=== PATIENT | female | born 1955 | race Caucasian/White ===

== ENCOUNTER → 2017-01-12 | Outpatient (CLI) | payer OTHER ==
[~2017-01-12] MED LIST: ALBU0.8322 IH; AZIT-21 PO; BSP5T PO; BUDE6HFA IH; CHOL200035 PO; FAMO20TA5 PO; FLUT16SP22 NS; LEVO750T24 PO; LORA-777 PO; LVT.025T PO; PRD10T PO; PRD20T PO
== END ==
LOC: CARD 08:32
PROVIDERS: ATTEND Family Medicine
DX: R79.89 Other specified abnormal findings of blood chemistry (principal)
CPT/HCPCS: 93306

== ENCOUNTER 2017-12-14 05:36 | Outpatient (CLI) | payer SELFPAY ==
[~2017-12-14] VITALS: Ht 172.7 cm; Wt 135.2 kg
[2017-12-14] MEDS ORDERED: PROP40TA5 PO (10:34)
[2017-12-14] MEDS ORDERED: BUDE10.2 IH (10:34)
[2017-12-14] MEDS ORDERED: FERR325T5 PO (10:34)
[2017-12-14] MEDS ORDERED: CHOL10007 PO (10:34)
[2017-12-14] MEDS ORDERED: ALBU1.25 IH (10:34)
[2017-12-14] MEDS ORDERED: SERT100T8 PO (10:34)
[2017-12-14] MEDS ORDERED: LEVO175T5 PO (10:34)
[2017-12-14] MEDS ORDERED: RT-ALBUINH IH (10:34)
[2017-12-14] MEDS ORDERED: FLUT9.9S NS (10:34)
== END 2017-12-14 10:42 ==
LOC: PREOP 05:36
PROVIDERS: ATTEND Surgery
DX: Z01.818 Encounter for other preprocedural examination (principal); R13.10 Dysphagia, unspecified

== ENCOUNTER 2018-03-18 21:09 | Day surgery (SDC) | payer OTHER ==
[~2018-03-18] VITALS: Ht 172.7 cm; Wt 136.6 kg
[~2018-03-18 21:09] MED LIST changes: +ALBU1.25 IH; +BUDE10.2 IH; +CHOL10007 PO; +FERR325T5 PO; +FLUT9.9S NS; +LEVO175T5 PO; +PROP40TA5 PO; +RT-ALBUINH IH; +SERT100T8 PO
[2018-03-18] MEDS ORDERED: NS IV 1000 ML 1,000 ML IV SCH (21:30)
[2018-03-18] MEDS ORDERED: ONDANSETRON 4 MG/2 ML (SDV) Z0FRAN IVP ONE ×2 (21:30→22:45)
[2018-03-18 21:32] LABS: BASOPHILS % (AUTO) 0 % (0-10); EOSINOPHILS # (AUTO) 0.2 10^3/uL (0.0-0.3); EOSINOPHILS % (AUTO) 3 % (0-10); HEMATOCRIT 39 % (35-52); HEMOGLOBIN 12.9 G/DL (11.5-16.0); LYMPHOCYTES # (AUTO) 1.2 X 10^3 (1.0-4.0); LYMPHOCYTES % (AUTO) 15 % (12-44); MEAN CORPUSCULAR HEMOGLOBIN 30 PG (25-34); MEAN CORPUSCULAR HGB CONC 33 G/DL (32-36); MEAN CORPUSCULAR VOLUME 91 FL (80-99); MEAN PLATELET VOLUME 11.4 FL (7.4-10.4); MONOCYTES # (AUTO) 0.7 X 10^3 (0.0-1.0); MONOCYTES % (AUTO) 8 % (0-12); NEUTROPHILS # (AUTO) 6.1 X 10^3 (1.8-7.8); NEUTROPHILS % (AUTO) 74 % (42-75); PLATELET COUNT 222 10^3/uL (130-400); RED BLOOD COUNT 4.27 10^6/uL (4.35-5.85); RED CELL DISTRIBUTION WIDTH 14.1 % (10.0-14.5); WHITE BLOOD COUNT 8.2 10^3/uL (4.3-11.0)
--- NOTE | 2018-03-18 21:34 | ED Abdominal Pain ---
General Chief Complaint: Abdominal/GI Problems Stated Complaint: N/V/D Nursing Triage Note: c/o RLQ abdomen pain, n/v/d x 2 hours Sepsis Screen: No Definite Risk Source of Information: Patient Exam Limitations: No Limitations History of Present Illness Date Seen by Provider: Mar 18, 2018 Time Seen by Provider: 21:00 Initial Comments Patient is a 62-year-old female who presents to the emergency room with cramping right lower abdominal pain, nausea, vomiting, diarrhea 2 hours prior to arrival after eating leftover French food. Denies chest pain, back pain, urinary symptoms, shortness of breath. Timing/Duration: 1-3 Hours Severity/Quality: Cramping Location: Generalized Abdomen Radiation: RLQ Associated Symptoms: Nausea/Vomiting Allergies and Home Medications Allergies Coded Allergies: Penicillins (Verified Allergy, Mild, HIVES, 12/14/17) hydrochlorothiazide (Verified Allergy, Mild, CRAMPS, 12/14/17) Home Medications Albuterol Sulfate 1.25 Mg/3 Ml Vial.neb, 1.25 MG IH QID PRN for SHORTNESS OF BREATH, (Reported) Albuterol Sulfate 6.7 Gm Hfa.aer.ad, 2 PUFF IH Q6H PRN for SHORTNESS OF BREATH, (Reported) Budesonide/Formoterol Fumarate 10.2 Gm Hfa.aer.ad, 2 PUFF IH BID, (Reported) Cholecalciferol (Vitamin D3) 1,000 Unit Capsule, 1,000 UNIT PO DAILY, (Reported) Docusate Sodium 100 Mg Capsule, 100 MG PO DAILY Prescribed by: LAINE DENT on 03/19/18 144 Ferrous Sulfate 325 Mg Tablet.dr, 325 MG PO DAILY, (Reported) Fluticasone Propionate 9.9 Ml [place].susp, 1 SPRAY NS DAILY, (Reported) 1 SPRAY EACH NARE DAILY Hydrocodone Bit/Acetaminophen 1 Tab Tab, 1 TAB PO Q4H PRN Prescribed by: LAINE DENT on 03/19/18 144 Levothyroxine Sodium 175 Mcg Tablet, 175 MCG PO DAILY, (Reported) Ondansetron 4 Mg Tab.rapdis, 4 MG SL Q4H PRN for NAUSEA/VOMITING-1ST LINE Prescribed by: IFRAH GAUTAM on 03/20/181910 Propranolol HCl 40 Mg Tablet, 40 MG PO TID, (Reported) Sertraline HCl 100 Mg Tablet, 50 MG PO DAILY, (Reported) Patient Home Medication List Home Medication List Reviewed: Yes Review of Systems Constitutional: see HPI; No chills, No diaphoresis Cardiovascular: Denies Palpitations, Denies Syncope Gastrointestinal: See HPI, Abdominal Pain, Diarrhea, Nausea, Vomiting Genitourinary: See HPI; Denies Burning, Denies Frequency, Denies Flank Pain, Denies Hematuria, Denies Pain, Denies Urgency All Other Systems Reviewed Negative Unless Noted: Yes Past Uuxhutq-Aeyayi-Tjykhs Hx Past Med/Social Hx: Reviewed Nursing Past Med/Soc Hx Patient Social History Alcohol Use: Denies Use Recreational Drug Use: No Smoking Status: Never a Smoker Recent Foreign Travel: No Contact w/Someone Who Travel: No Recent Infectious Disease Expo: No Recent Hopitalizations: No Physical Abuse: No Sexual Abuse: No Immunizations Up To Date Date of Pneumonia Vaccine: May 03, 2012 Date of Influenza Vaccine: Jun 14, 2017 Seasonal Allergies Seasonal Allergies: Yes Past Medical History Surgeries: Yes (ESOPHAGEAL STRICTURE STRETCHED) Tonsillectomy Respiratory: Yes (SOB) Asthma Cardiac: Yes (MITRAL VALVE REGURGITATION) Hypertension, Valvular Heart Disease Neurological: No Reproductive Disorders: Yes Sexually Transmitted Disease: No HIV/AIDS: No Gastrointestinal: Yes (ESOPHAGEAL STRICTURE) Gastroesophageal Reflux Musculoskeletal: Yes Arthritis Endocrine: No (HOSHIMOTOS) Loss of Vision: Bilateral Hearing Impairment: Hard of Hearing Cancer: No Psychosocial: Yes Anxiety Nursing Suicide Risk Score: 0 Integumentary: No Blood Disorders: Yes (IRON DEF ANEMIA) Adverse Reaction/Blood Tranf: No (N/A) Family Medical History Reviewed Nursing Family Hx Physical Exam Vital Signs Vital Signs - First Documented 03/18/18 21:22 Temp 97.4 Pulse 61 Resp 18 B/P (MAP) 171/81 (111) Pulse Ox 97 Capillary Refill : Less Than 3 Seconds Height/Weight/BMI Height: 5'8.00" Weight: 298lbs. 0.0oz. [id number]; 45.3 BMI Method:Stated General Appearance: WD/WN, no apparent distress Respiratory: chest non-tender, lungs clear, normal breath sounds, no respiratory distress, no accessory muscle use Cardiovascular: regular rate, rhythm, no edema, no gallop, no JVD, no murmur Gastrointestinal: normal bowel sounds, non tender, soft, no organomegaly, no pulsatile mass Neurologic/Psychiatric: alert, normal mood/affect, oriented x 3 Skin: normal color, warm/dry Progress/Results/Core Measures Results/Orders Lab Results Laboratory Tests Test 03/18/18 21:15 03/18/18 22:52 Range/Units White Blood Count 8.2 4.3-11.0 10^3/uL Red Blood Count 4.27 L 4.35-5.85 10^6/uL Hemoglobin 12.9 11.5-16.0 G/DL Hematocrit 39 35-52 % Mean Corpuscular Volume 91 80-99 FL Mean Corpuscular Hemoglobin 30 25-34 PG Mean Corpuscular Hemoglobin Concent 33 32-36 G/DL Red Cell Distribution Width 14.1 10.0-14.5 % Platelet Count 222 130-400 10^3/uL Mean Platelet Volume 11.4 H 7.4-10.4 FL Neutrophils (%) (Auto) 74 42-75 % Lymphocytes (%) (Auto) 15 12-44 % Monocytes (%) (Auto) 8 0-12 % Eosinophils (%) (Auto) 3 0-10 % Basophils (%) (Auto) 0 0-10 % Neutrophils # (Auto) 6.1 1.8-7.8 X 10^3 Lymphocytes # (Auto) 1.2 1.0-4.0 X 10^3 Monocytes # (Auto) 0.7 0.0-1.0 X 10^3 Eosinophils # (Auto) 0.2 0.0-0.3 10^3/uL Basophils # (Auto) 0.0 0.0-0.1 10^3/uL Sodium Level 140 135-145 MMOL/L Potassium Level 3.4 L 3.6-5.0 MMOL/L Chloride Level 105 98-107 MMOL/L Carbon Dioxide Level 24 21-32 MMOL/L Anion Gap 11 5-14 MMOL/L Blood Urea Nitrogen 10 7-18 MG/DL Creatinine 0.90 0.60-1.30 MG/DL Estimat Glomerular Filtration Rate > 60 BUN/Creatinine Ratio 11 Glucose Level 141 H 70-105 MG/DL Calcium Level 9.7 8.5-10.1 MG/DL Total Bilirubin 0.5 0.1-1.0 MG/DL Aspartate Amino Transf (AST/SGOT) 19 5-34 U/L Alanine Aminotransferase (ALT/SGPT) 15 0-55 U/L Alkaline Phosphatase 67 40-136 U/L Total Protein 7.5 6.4-8.2 GM/DL Albumin 4.3 3.2-4.5 GM/DL Amylase Level 77 25-125 U/L Lipase 43 8-78 U/L Urine Color YELLOW Urine Clarity CLEAR Urine pH 6 5-9 Urine Specific [place] 1.025 H 1.016-1.022 Urine Protein 2+ H NEGATIVE Urine Glucose (UA) NEGATIVE NEGATIVE Urine Ketones 2+ H NEGATIVE Urine Nitrite NEGATIVE NEGATIVE Urine Bilirubin NEGATIVE NEGATIVE Urine Urobilinogen NORMAL NORMAL MG/DL Urine Leukocyte Esterase 1+ H NEGATIVE Urine RBC (Auto) 2+ H NEGATIVE Urine RBC 2-5 H /HPF Urine WBC 2-5 /HPF Urine Squamous Epithelial Cells 5-10 /HPF Urine Crystals NONE /LPF Urine Bacteria FEW H /HPF Urine Casts NONE /LPF Urine Mucus NEGATIVE /LPF Urine Culture Indicated NO My Orders Orders - IFRAH GAUTAM Ondansetron Injection (Zofran Injectio (03/18/18 21:30) Comprehensive Metabolic Panel (03/18/18 21:16) Lipase (03/18/18 21:16) Amylase (03/18/18 21:16) Ua Culture If Indicated (03/18/18 21:16) Saline Lock/Iv-Start (03/18/18 21:16) Cbc With Automated Diff (03/18/18 21:16) Ns Iv 1000 Ml (Sodium Chloride 0.9%) (03/18/18 21:30) Promethazine Injection (Phenergan Injec (03/18/18 21:45) Hyoscyamine Sl Tablet (Levsin Sl Tablet) (03/18/18 22:45) Ondansetron Injection (Zofran Injectio (03/18/18 22:45) Ct Abdomen/Pelvis W (03/18/18 22:38) Iohexol Injection (Omnipaque 350 Mg/Ml 1 (03/18/18 23:15) Ns (Ivpb) (Sodium Chloride 0.9%) (03/18/18 23:15) Medications Given in ED Vital Signs/I&O 03/18/18 21:22 Temp 97.4 Pulse 61 Resp 18 B/P (MAP) 171/81 (111) Pulse Ox 97 Blood Pressure Mean: 111 Progress Progress Note : Time: 22:30 Progress Note Spoke to Dr. Jama at this time. I told her about my concern for the patient's discomfort and intractable nausea and vomiting but given the patient's labs and urine she thinks that the patient can be followed up at the walk-in clinic first thing tomorrow morning. 2300: The patient is feeling a little better at this time she was able to go over to CT scan without nausea or vomiting and able to lay down for the exam. 2330: CT exam showed cholelithiasis and possible cholecystitis. Dr. Dent was called at this time and agreed for plans for admission. Departure Communication (Admissions) Time/Spoke to Admitting Phy: 23:[address] Dent at this time regarding CT findings. He agrees with plans of admission ultrasound in the morning. The patient will also be started on Zosyn every 8 hours. Impression Primary Impression: Cholecystitis Disposition: ADMITTED INPATIENT Condition: Stable/Unchanged Admissions Decision to Admit Reason: Admit from ER (Trauma) Decision to Admit/Date: Mar 18, 2018 Time/Decision to Admit Time: 23:58 Departure-Patient Inst. Referrals: JUAN JOSE HELLER MD (PCP/Family) Primary Care Physician Scripts Hydrocodone Bit/Acetaminophen (Hydrocodone/Acetaminophen 5/325mg Tablet) 1 Tab Tab 1 TAB PO Q4H PRN, #30 TAB 0 Refills Prov: LAINE DENT DO 03/19/18 Docusate Sodium (Colace) 100 Mg Capsule 100 MG PO DAILY, #30 CAP Prov: LAINE DENT DO 03/19/18 IFRAH GAUTAM Mar 18, 2018 21:33
[2018-03-18] MEDS ORDERED: PROMETHAZINE INJ 25 MG/ML (PHENERGAN) AMP IVP ONE (21:45)
[2018-03-18 21:51] LABS: ALANINE AMINOTRANSFERASE 15 U/L (0-55); ALBUMIN 4.3 GM/DL (3.2-4.5); ALKALINE PHOSPHATASE 67 U/L (40-136); AMYLASE 77 U/L (25-125); BILIRUBIN,TOTAL 0.5 MG/DL (0.1-1.0); BUN/CREATININE RATIO 11; CALCIUM 9.7 MG/DL (8.5-10.1); CARBON DIOXIDE 24 MMOL/L (21-32); CHLORIDE 105 MMOL/L (98-107); GFR ESTIMATED > 60; GLUCOSE 141 MG/DL (70-105); LIPASE 43 U/L (8-78); POTASSIUM 3.4 MMOL/L (3.6-5.0); SODIUM 140 MMOL/L (135-145); TOTAL PROTEIN 7.5 GM/DL (6.4-8.2)
[2018-03-18] MEDS ORDERED: HYOSCYAMINE 0.125 MG (LEVSIN) TAB PO ONE (22:45)
[2018-03-18 22:58] LABS: BILIRUBIN,URINE NEGATIVE (NEGATIVE); CLARITY,URINE CLEAR; COLOR,URINE YELLOW; GLUCOSE, URINE (UA) NEGATIVE (NEGATIVE); KETONES,URINE 2+ (NEGATIVE); LEUKOCYTE ESTERASE ,URINE 1+ (NEGATIVE); NITRITE,URINE NEGATIVE (NEGATIVE); PH,URINE 6 (5-9); PROTEIN,URINE 2+ (NEGATIVE); UROBILINOGEN,URINE NORMAL (NORMAL)
[2018-03-18 23:10] LABS: BACTERIA,URINE FEW /HPF
[2018-03-18] MEDS ORDERED: NS 250 ML (IVPB) BAG IV ONE (23:15)
[2018-03-18] MEDS ORDERED: IOHEXOL 350 MG/ML 100 ML (OMNIPAQUE 350) VIAL IV ONE (23:15)
[2018-03-19] VITALS (7 sets, daily range): BP systolic 147–187; BP diastolic 65–84
[2018-03-19] MEDS ORDERED: fentaNYL INJECTION 100 MCG/2 ML AMP IVP ONE (00:15)
[2018-03-19] MEDS ORDERED: NS 1000 ML IV BAG IV SCH (01:00)
[2018-03-19] MEDS ORDERED: ONDANSETRON 4 MG/2 ML (SDV) Z0FRAN IVP PRN ×2 (01:00→14:00)
[2018-03-19] MEDS ORDERED: CATHETER FLUSH 10 ML SYR IV PRN (01:00)
[2018-03-19] MEDS ORDERED: PIPERACILLIN/TAZO 3.375 GM/D5W 100 ML IV ONE ×2 (01:00)
[2018-03-19] MEDS ORDERED: PROMETHAZINE INJ 25 MG/ML (PHENERGAN) AMP IV PRN (01:00)
[2018-03-19] MEDS ORDERED: PROMETHAZINE INJ 25 MG/ML (PHENERGAN) AMP IVP PRN (01:00)
[2018-03-19] MEDS ORDERED: PIPERACILLIN/TAZOBACTAM 3.375 GM in D5W 100 ML IVPB 100 ML IV SCH (01:00)
[2018-03-19] MEDS ORDERED: fentaNYL INJECTION 100 MCG/2 ML AMP IVP PRN (01:00)
[2018-03-19] MEDS: NS IV 1000 ML 1,000 ML IV SCH ×3 (01:04→12:05)
[2018-03-19] MEDS: fentaNYL INJECTION 100 MCG/2 ML AMP IV PRN ×3 (02:58→12:05)
[2018-03-19] MEDS: ONDANSETRON 4 MG/2 ML (SDV) Z0FRAN IV PRN ×3 (02:59→18:35)
[2018-03-19 05:57] LABS: BASOPHILS % (AUTO) 0 % (0-10); EOSINOPHILS % (AUTO) 0 % (0-10); HEMATOCRIT 37 % (35-52); HEMOGLOBIN 12.2 G/DL (11.5-16.0); LYMPHOCYTES # (AUTO) 0.5 X 10^3 (1.0-4.0); LYMPHOCYTES % (AUTO) 6 % (12-44); MEAN CORPUSCULAR HEMOGLOBIN 30 PG (25-34); MEAN CORPUSCULAR HGB CONC 33 G/DL (32-36); MEAN CORPUSCULAR VOLUME 91 FL (80-99); MEAN PLATELET VOLUME 12.2 FL (7.4-10.4); MONOCYTES # (AUTO) 0.2 X 10^3 (0.0-1.0); MONOCYTES % (AUTO) 3 % (0-12); NEUTROPHILS # (AUTO) 8.1 X 10^3 (1.8-7.8); NEUTROPHILS % (AUTO) 91 % (42-75); PLATELET COUNT 194 10^3/uL (130-400); RED BLOOD COUNT 4.06 10^6/uL (4.35-5.85); RED CELL DISTRIBUTION WIDTH 14.1 % (10.0-14.5); WHITE BLOOD COUNT 8.9 10^3/uL (4.3-11.0)
[2018-03-19] MEDS: CATHETER FLUSH 10 ML SYR IV SCH ×2 (06:03→15:43)
[2018-03-19] MEDS: PIPERACILLIN/TAZO 3.375 GM/D5W 100 ML IV SCH ×4 (06:04→13:50)
[2018-03-19 06:20] LABS: ALANINE AMINOTRANSFERASE 17 U/L (0-55); ALBUMIN 4.2 GM/DL (3.2-4.5); ALKALINE PHOSPHATASE 71 U/L (40-136); BILIRUBIN,TOTAL 0.6 MG/DL (0.1-1.0); BUN/CREATININE RATIO 9; CALCIUM 9.3 MG/DL (8.5-10.1); CARBON DIOXIDE 22 MMOL/L (21-32); CHLORIDE 105 MMOL/L (98-107); CREATININE SERUM 0.76 MG/DL (0.60-1.30); GFR ESTIMATED > 60; GLUCOSE 147 MG/DL (70-105); POTASSIUM 3.8 MMOL/L (3.6-5.0); SODIUM 138 MMOL/L (135-145); TOTAL PROTEIN 7.5 GM/DL (6.4-8.2)
--- NOTE | 2018-03-19 06:32 | Diagnostic Imaging Report ---
PROCEDURE: CT abdomen and pelvis with contrast. TECHNIQUE: Multiple contiguous axial images were obtained through the abdomen and pelvis after administration of intravenous contrast. INDICATION: Right-sided abdominal pain, history of esophageal stricture. FINDINGS: There are no prior studies available for comparison. There is cholelithiasis and there is perhaps slight distortion of the pericolonic fat. This appearance does raise the question of acute cholecystitis. If further study is desired, then ultrasound will be recommended. The liver does not appear to be enlarged and there is no focal mass involving the liver. The spleen, pancreas, adrenals, kidneys, aorta and inferior vena cava are unremarkable for an acute abnormality. There is a large roughly 7 cm hiatal hernia. The stomach is otherwise unremarkable. The images through the pelvis reveal that the uterus is not enlarged; however, the endometrial lining does seem thickened. The endometrium measures approximately 15 mm (normal postmenopausal endometrial thickness 5 mm or less). This finding is nonspecific, however. Ultrasound will be recommended for further study. The urinary bladder is grossly unremarkable. The appendix is visualized and is not abnormally thickened. There is no pelvic mass or free fluid collection noted. The bone windows show no sign of a fracture or of a destructive lesion. There is degenerative disc and bony disease at L4-L5 and L5-S1. The lung bases are clear. IMPRESSION: 1. There is cholelithiasis and the slight distortion of the pericolonic fat does raise the question of acute cholecystitis. The endometrial lining of the uterus is slightly thickened. This finding is of uncertain etiology but abnormal in a postmenopausal patient such as this. Ultrasound would be recommended for further study of both the gallbladder and the uterus. 3. There is no acute abnormality of the abdomen or pelvis noted otherwise. 4. There is a large hiatal hernia. Dictated by: Dictated on workstation # [id number]
[2018-03-19 06:37] LABS: LYMPHOCYTES % (MANUAL) 7 %; MONOCYTES % (MANUAL) 1 %; NEUTROPHILS % (MANUAL) 92 %; NUCLEATED RED BLOOD CELLS 1; SPHEROCYTES SLIGHT
--- NOTE | 2018-03-19 09:18 | Diagnostic Imaging Report ---
PROCEDURE: US Gallbladder. TECHNIQUE: Multiple real-time grayscale images were obtained over the right upper quadrant in various projections. INDICATION: Abdominal pain. FINDINGS: The liver is normal in size without focal lesions. There are stones in the fundus of the gallbladder. There is no gallbladder wall thickening or pericholecystic fluid. There is no biliary ductal dilatation. The common bile duct measures 5 mm. The pancreas is obscured by bowel gas. The right kidney is normal. There is no ascites. There is no right upper quadrant pain. Aorta and IVC are not well-visualized. IMPRESSION: Cholelithiasis, otherwise unremarkable right upper quadrant ultrasound. Dictated by: Dictated on workstation # [id number]
--- NOTE | 2018-03-19 11:24 | History & Physical-Surgical ---
History of Present Illness History of Present Illness Reason for visit/HPI CC: n/v right upper abdominal pain Patient 62-year-old female who has been having pain in the right upper quadrant after eating [place] food last night. Patient states pain is cramping type pain that is moderate to severe. She has nausea and some emesis. She's also had some diarrhea. Patient states that nothing really making things better. She states that she has a little bit of dizziness associated from the pain. Patient is not really feeling much better. And nothing making it better. Food seemed to make it worse. Patient had a CT scan demonstrating cholelithiasis and questionable changes consistent with cholecystitis. She and ultrasound demonstrating stones otherwise unremarkable. Patient still having some persistent pain. Date of Admission Mar 18, 2018 at 23:50 Date Seen by Provider: Mar 19, 2018 Time Seen by Provider: 11:20 I consulted on this patient on 03/19/18 11:19 Attending Physician Laine Lewis DO Admitting Physician Vianca Vargas MD Consult Allergies and Home Medications Allergies Coded Allergies: Penicillins (Verified Allergy, Mild, HIVES, 12/14/17) hydrochlorothiazide (Verified Allergy, Mild, CRAMPS, 12/14/17) Home Medications Albuterol Sulfate 1.25 Mg/3 Ml Vial.neb, 1.25 MG IH QID PRN for SHORTNESS OF BREATH, (Reported) Albuterol Sulfate 6.7 Gm Hfa.aer.ad, 2 PUFF IH Q6H PRN for SHORTNESS OF BREATH, (Reported) Budesonide/Formoterol Fumarate 10.2 Gm Hfa.aer.ad, 2 PUFF IH BID, (Reported) Cholecalciferol (Vitamin D3) 1,000 Unit Capsule, 1,000 UNIT PO DAILY, (Reported) Ferrous Sulfate 325 Mg Tablet.dr, 325 MG PO DAILY, (Reported) Fluticasone Propionate 9.9 Ml [place].susp, 1 SPRAY NS DAILY, (Reported) 1 SPRAY EACH NARE DAILY Levothyroxine Sodium 175 Mcg Tablet, 175 MCG PO DAILY, (Reported) Propranolol HCl 40 Mg Tablet, 40 MG PO TID, (Reported) Sertraline HCl 100 Mg Tablet, 50 MG PO DAILY, (Reported) Patient Home Medication List Home Medication List Reviewed: Yes Past Ngyjnhd-Bvdohf-Goxdcx Hx Patient Social History Alcohol Use: Denies Use Recreational Drug Use: No Smoking Status: Never a Smoker Recent Foreign Travel: No Contact w/Someone Who Travel: No Recent Infectious Disease Expo: No Recent Hopitalizations: No Physical Abuse Screen: No Sexual Abuse: No Immunizations Up To Date Date of Pneumonia Vaccine: May 03, 2012 Date of Influenza Vaccine: Jun 14, 2017 Seasonal Allergies Seasonal Allergies: Yes Surgeries History of Surgeries: Yes (ESOPHAGEAL STRICTURE STRETCHED) Surgeries: Tonsillectomy Respiratory History of Respiratory Disorde: Yes (SOB) Respiratory Disorders: Asthma, Chronic Bronchitis, COPD Cardiovascular History of Cardiac Disorders: Yes (MITRAL VALVE REGURGITATION) Cardiac Disorders: Hypertension, Valvular Heart Disease Neurological History of Neurological Disord: No Reproductive System Hx Reproductive Disorders: Yes Sexually Transmitted Disease: No HIV/AIDS: No Gastrointestinal History of Gastrointestinal Di: Yes (ESOPHAGEAL STRICTURE) Gastrointestinal Disorders: Gastroesophageal Reflux Musculoskeletal History of Musculoskeletal Dis: Yes Musculoskeletal Disorders: Arthritis Endocrine History of Endocrine Disorders: No (HOSHIMOTOS) HEENT History of HEENT Disorders: Yes Loss of Vision: Bilateral Hearing Impairment: Hard of Hearing Cancer History of Cancer: No Psychosocial History of Psychiatric Problem: Yes Behavioral Health Disorders: Anxiety Integumentary History of Skin or Integumenta: No Blood Transfusions History of Blood Disorders: Yes (IRON DEF ANEMIA) Adverse Reaction to a Blood Tr: No (N/A) Family Medical History Significant Family History: No Pertinent Family Hx Constitutional: see HPI EENTM: no symptoms reported Respiratory: no symptoms reported Cardiovascular: no symptoms reported Gastrointestinal: see HPI Genitourinary: no symptoms reported Musculoskeletal: no symptoms reported Skin: no symptoms reported Psychiatric/Neurological: No Symptoms Reported Physical Exam Vital Signs Vital Signs - First Documented 03/18/18 03/19/18 21:22 00:32 Temp 97.4 Pulse 61 Resp 18 B/P (MAP) 171/81 (111) Pulse Ox 97 O2 Delivery Room Air Capillary Refill : Less Than 3 Seconds Height, Weight, BMI Height: 5'8.00" Weight: 301lbs. 3.2oz. [id number]; 45.8 BMI Method:Stated General Appearance: No Apparent Distress HEENT: PERRL/EOMI Neck: Supple Respiratory: No Accessory Muscle Use, No Respiratory Distress Cardiovascular: Regular Rate, Rhythm Gastrointestinal: Tenderness (right upper quadrant) Rectal: Deferred Back: Normal Inspection Neurologic/Psychiatric: Alert, Oriented x3, No Motor/Sensory Deficits, Normal Mood/Affect Skin: Normal Color, Warm/Dry Lymphatic: No Adenopathy Data Review Labs Laboratory Tests 03/18/18 21:15: White Blood Count 8.2, Red Blood Count 4.27L, Hemoglobin 12.9, Hematocrit 39, Mean Corpuscular Volume 91, Mean Corpuscular Hemoglobin 30, Mean Corpuscular Hemoglobin Concent 33, Red Cell Distribution Width 14.1, Platelet Count 222, Mean Platelet Volume 11.4H, Neutrophils (%) (Auto) 74, Lymphocytes (%) (Auto) 15 , Monocytes (%) (Auto) 8, Eosinophils (%) (Auto) 3, Basophils (%) (Auto) 0, Neutrophils # (Auto) 6.1, Lymphocytes # (Auto) 1.2, Monocytes # (Auto) 0.7, Eosinophils # (Auto) 0.2, Basophils # (Auto) 0.0, Sodium Level 140, Potassium Level 3.4L, Chloride Level 105, Carbon Dioxide Level 24, Anion Gap 11, Blood Urea Nitrogen 10, Creatinine 0.90, Estimat Glomerular Filtration Rate > 60, BUN/ Creatinine Ratio 11, Glucose Level 141H, Calcium Level 9.7, Total Bilirubin 0.5 , Aspartate Amino Transf (AST/SGOT) 19, Alanine Aminotransferase (ALT/SGPT) 15, Alkaline Phosphatase 67, Total Protein 7.5, Albumin 4.3, Amylase Level 77, Lipase 43 03/18/18 22:52: Urine Color YELLOW, Urine Clarity CLEAR, Urine pH 6, Urine Specific [place] 1.025H, Urine Protein 2+H, Urine Glucose (UA) NEGATIVE, Urine Ketones 2+H, Urine Nitrite NEGATIVE, Urine Bilirubin NEGATIVE, Urine Urobilinogen NORMAL, Urine Leukocyte Esterase 1+H, Urine RBC (Auto) 2+H, Urine RBC 2-5H, Urine WBC 2- 5, Urine Squamous Epithelial Cells 5-10, Urine Crystals NONE, Urine Bacteria FEWH, Urine Casts NONE, Urine Mucus NEGATIVE, Urine Culture Indicated NO 03/19/18 05:30: White Blood Count 8.9, Red Blood Count 4.06L, Hemoglobin 12.2, Hematocrit 37, Mean Corpuscular Volume 91, Mean Corpuscular Hemoglobin 30, Mean Corpuscular Hemoglobin Concent 33, Red Cell Distribution Width 14.1, Platelet Count 194, Mean Platelet Volume 12.2H, Neutrophils (%) (Auto) 91H, Lymphocytes (%) (Auto) 6L, Monocytes (%) (Auto) 3, Eosinophils (%) (Auto) 0, Basophils (%) (Auto) 0, Neutrophils # (Auto) 8.1H, Lymphocytes # (Auto) 0.5L, Monocytes # (Auto) 0.2, Eosinophils # (Auto) 0.0, Basophils # (Auto) 0.0, Sodium Level 138, Potassium Level 3.8, Chloride Level 105, Carbon Dioxide Level 22, Anion Gap 11, Blood Urea Nitrogen 7, Creatinine 0.76, Estimat Glomerular Filtration Rate > 60, BUN/ Creatinine Ratio 9, Glucose Level 147H, Calcium Level 9.3, Total Bilirubin 0.6, Aspartate Amino Transf (AST/SGOT) 18, Alanine Aminotransferase (ALT/SGPT) 17, Alkaline Phosphatase 71, Total Protein 7.5, Albumin 4.2, Neutrophils % (Manual) 92, Lymphocytes % (Manual) 7, Monocytes % (Manual) 1, Nucleated Red Blood Cells 1, Spherocytes SLIGHT Assessment/Plan Assessment/Plan Admission Diagonsis Right upper quadrant abdominal pain, cholelithiasis cholecystitis Patient was discuss risk and benefits of left Cholecystectomy intraprocedural other indicated procedures. Patient received risk and benefits wishes to proceed. Patient to or. Nothing by mouth continue antibiotics Admission Status: Observation Assessment/Plan Right upper quadrant abdominal pain, cholelithiasis cholecystitis Patient was discuss risk and benefits of left Cholecystectomy intraprocedural other indicated procedures. Patient received risk and benefits wishes to proceed. Patient to or. Nothing by mouth continue antibiotics Clinical Quality Measures DVT/VTE Risk/Contraindication: Risk Factor Score Per Nursin RFS Level Per Nursing on Admit: 3=High LAINE LEWIS DO Mar 19, 2018 11:24
[2018-03-19] MEDS ORDERED: ROCURONIUM 10 MG/ML 5 ML SYRINGE IV ONE (11:40)
[2018-03-19] MEDS ORDERED: proPOfol 200 MG/20 ML (DIPRIVAN) VIAL IV ONE (11:40)
[2018-03-19] MEDS ORDERED: DEXAMETHASONE 10 MG/ML (DECADRON) 1 ML VIAL ONE (11:40)
[2018-03-19] MEDS ORDERED: LIDOCAINE 1% INJ 20 ML 20 ML VIAL ONE (11:40)
[2018-03-19] MEDS ORDERED: LIDOCAINE PF 2% 5 ML (XYLOCAINE) VIAL ONE (11:40)
[2018-03-19] MEDS ORDERED: ONDANSETRON 4 MG/2 ML (SDV) Z0FRAN ONE (11:40)
[2018-03-19] MEDS ORDERED: SEVOFLURANE (ULTANE) 15 ML INHAL SOLN ONE ×2 (11:41→14:29)
[2018-03-19] MEDS ORDERED: MIDAZOLAM 2 MG/2 ML (VERSED) VIAL ONE (11:41)
[2018-03-19] MEDS ORDERED: fentaNYL INJECTION 100 MCG/2 ML AMP ONE (11:41)
[2018-03-19] MEDS ORDERED: BUPIVACAINE 0.5% 30 ML (SENSORCAINE) VIAL ONE (11:42)
[2018-03-19] MEDS ORDERED: morphine INJ 10 MG/ML 1ML (SYR OR VIAL) ONE (12:24)
[2018-03-19] MEDS: LACTATED RINGERS 1,000 ML IV PRN ×2 (13:00→14:30)
[2018-03-19] MEDS ORDERED: morphine INJ 10 MG/ML 1ML (SYR OR VIAL) IVP PRN (14:00)
[2018-03-19] MEDS ORDERED: meTOprolol 5 MG/5 ML (LOPRESSOR) VIAL ONE (14:08)
[2018-03-19] MEDS ORDERED: NEOSTIGMINE 1 MG/ML 5 ML SYRINGE ONE (14:27)
[2018-03-19] MEDS ORDERED: GLYCOPYRROLATE 0.2 MG/ML (ROBINUL) 2 ML VIAL ONE (14:27)
--- NOTE | 2018-03-19 14:38 | Progress Note-Post Operative ---
Post-Operative Progess Note Surgeon (s)/Winch Derrick Operator (s) Surgeon LAINE DENT DO Winch Derrick Operator: Dr. Kirkpatrick Pre-Operative Diagnosis cholelithiasis, cholecystitis Post-Operative Diagnosis same Procedure & Operative Findings Date of Procedure 03/19/18 Procedure Performed/Findings lap michael ioc Anesthesia Type gen Estimated Blood Loss Estimated blood loss (mL): min Specimens/Packing Specimens Removed gallbladder LAINE EDNT DO Mar 19, 2018 14:38
[2018-03-19] MEDS ORDERED: ACHD5005 PO (14:41)
[2018-03-19] MEDS ORDERED: DOCU-143 PO (14:41)
--- NOTE | 2018-03-19 14:43 | Discharge Inst-Simple/Standard ---
Discharge Inst-Standard Discharge Medications New, Converted or Re-Newed RX: RX on Chart Patient Instructions/Follow Up Plan of Care/Instructions/FU: 2 weeks Debbie Activity as Tolerated: No Discharge Diet: Regular Diet Other Inst to Patient Follow up Appt: Make appointment for 2 weeks. Instructions: No lifting greater than 10 pounds. No strenuous activity. May shower in 24 hours, no tub bath or soaking. Use incentive spirometer at home as directed. No Smoking Skin/Wound Care: You have special glue over incisions it will fall off on its own. Symptoms to Report: Appetite Changes, Extremity Discoloration, Numbness/Tingling, Swelling Increased , Bleeding Excessive, Eyesight Changes, Pain Increased, Urine Color Change, Constipation(Persistent), Fever over 101 degree F, Pain/Pressure in chest, Urinating Difficulty, Cough Up/Vomit Blood, Heart Beat Irreg/Pounding, Pain/ Pressure in jaw, Vaginal Bleeding Increase, Cramps in feet or legs, Lightheadedness, Pain/Pressure in shoulder, Diarrhea(Persistent), Memory Changes Suddenly, Questions/Concerns, Weight gain consecutive days, Dizziness/ Fainting, Nausea/Vomiting, Shortness of Breath, Weight gain over 2 pounds. If eyes or skin turn yellow notify physician. If questions or concerns contact your physician Or seek help at emergency department. Planned Outpatient Orders/Ref. Pneu Vac Indicated: Yes LAINE DENT DO Mar 19, 2018 14:43
[2018-03-19] MEDS ORDERED: HYDROcodone/APAP 5 MG/325 MG (LORTAB) TAB PO PRN (15:00)
--- NOTE | 2018-03-19 16:12 | OPERATIVE REPORT ---
DATE OF SERVICE: 03/19/2018 PREOPERATIVE DIAGNOSES: Cholelithiasis, right upper quadrant abdominal pain. POSTOPERATIVE DIAGNOSES: Cholelithiasis, right upper quadrant abdominal pain and cholecystitis. PROCEDURE: Laparoscopic cholecystectomy with intraoperative cholangiogram. SURGEON: Matt Lewis DO GOLD NIB GRINDER: Dr. Kirkpatrick, assisted in retraction, dissection and closure. ANESTHESIA: General. ESTIMATED BLOOD LOSS: Minimal. COMPLICATIONS: None. INDICATIONS: The patient is a 62-year-old female who was having nausea, vomiting and right upper quadrant abdominal pain. She had a CT scan that demonstrated cholelithiasis with suggestion of cholecystitis. She had an ultrasound performed demonstrating cholelithiasis. The patient was explained risks and benefits of procedure and wished to proceed with procedure. Consent was signed in the chart. DESCRIPTION OF PROCEDURE: The patient was taken to the operating suite. She was prepped and draped in sterile fashion. Surgical pause was performed. An 11 blade scalpel was used to make an incision above the umbilicus and cautery dissection was taken down to the fascia, which was then scored, grasped and elevated. The abdomen was then entered. A 0 Vicryl suture was placed in a vgqith-fj-vknib fashion for closure at the end of the case. The balloon trocar was inserted in the abdomen and pneumoperitoneum was achieved. Under direct visualization of the laparoscope, a 5 mm trocar was then placed in the subxiphoid region and two 5 mm trocars were placed in the right upper quadrant. Gallbladder was grasped and elevated. There were some adhesions to this, which were then bluntly taken down. There was some edema present around the gallbladder. The cystic duct and the cystic artery were dissected around. Clips were placed on the proximal and distal portion of the cystic artery and a clip was placed on the distal portion of the cystic duct. The duct was then partially transected. Arrow catheter was inserted to the cystic duct and a clip was also placed to hold the catheter in place. A cholangiogram was then performed. There were no filling defects and contrast made its way into the duodenum without difficulty. The Arrow catheter was then removed. Clips were placed in the proximal portion of the cystic duct and the duct and the artery were then completely transected. Hook cautery was used to dissect the gallbladder from gallbladder fossa achieving hemostasis. A small hole was made in the gallbladder leaking some bile. Gallbladder was placed in an Endobag and removed through the 12 mm trocar site. The abdomen was then irrigated and suctioned with copious amounts of irrigation. Hemostasis had been achieved. The abdomen was then desufflated and the trocars were removed. The 12 mm fascial defect was closed with the 0 Vicryl suture that was placed earlier. The skin was then closed using 4-0 Monocryl in a subcuticular fashion. The abdomen was then washed and dried and Skin Affix was placed over the incisions. The patient tolerated the procedure well without any complications. She was taken to the recovery room in stable condition. Job ID: [id number] DocumentID: [id number] Dictated Date: 03/19/2018 15:29:18 Chemical Plant Manager Date: 03/19/2018 16:11:42 Dictated By: DO EVERETT ZAPATA
--- NOTE | 2018-03-19 19:14 | Diagnostic Imaging Report ---
INDICATION: Laparoscopic cholecystectomy, abdominal pain. EXAMINATION: Fluoroscopy at 2:15 p.m. Fluoroscopic assistance was provided for Dr. Lewis. 16.6 seconds of fluoroscopy time was visualized. 93 images of the right upper quadrant were received from the OR. FINDINGS: There has been opacification of the common bile duct via the cystic duct catheter. There is no defect within the common bile duct to suggest a retained calculus and contrast is seen extending into the small bowel. IMPRESSION: Fluoroscopic assistance was provided for Dr. Lewis. Dictated by: Dictated on workstation # [id number]
[2018-03-19] MEDS ORDERED: MICONAZOLE 2% POWDER (DESENEX AF) 90 GM TOP SCH (21:00)
[2018-03-20] MEDS ORDERED: ONDA4TAB8 SL (19:11)
--- OUTSIDE RECORDS SUMMARY | 2018-03-23 15:54 | XMS REPORT ---
Author Author JUAN JOSE HELLER [employer] Address Unknown Phone Unavailable Care Team Providers Care Motor Pool Clerk Name Role Phone JUAN JOSE HELLER CP Unavailable Allergies No Known Allergies Problems Problem Type Condition Code Onset Dates Condition Status Problem Hyperlipidemia E78.5 Active Problem Mild persistent asthma without complication J45.30 Active Problem Chronic pansinusitis J32.4 Active Problem Essential hypertension I10 Active Problem Essential tremor G25.0 Active Problem Hypothyroidism (acquired) E03.9 Active Problem Generalized anxiety disorder F41.1 Active Problem Palpitations R00.2 Active Problem Shortness of breath R06.02 Active Problem Vitamin D deficiency E55.9 Active Assessment Anemia, unspecified type D64.9 Active Problem Prediabetes R73.09 Active Problem Encounter for dental examination Z01.20 Active Assessment Hypothyroidism (acquired) E03.9 Active Problem Bilateral sensorineural hearing loss H90.3 Active Medications No Known Medications Results No Known Results Summary Purpose eClinicalWorks Submission
--- OUTSIDE RECORDS SUMMARY | 2018-03-23 15:54 | XMS REPORT ---
Author Author JADON QUIROZ [facility] e[employer] Address Unknown Phone Unavailable Care Team Providers Care Buildings And Grounds Supervisor Name Role Phone JADON QUIROZ CP Unavailable Allergies No Known Allergies Problems [...] Problem Vitamin D deficiency E55.9 Active Assessment Dental examination Z01.20 Active Problem Prediabetes R73.09 Active Problem Encounter for dental examination Z01.20 Active Problem Bilateral sensorineural hearing loss H90.3 Active Medications No Known Medications Procedures Procedure Coding System Code Date Billing Notes on claim CPT-4 [id number] Apr 24, 2016 Results No Known Results Summary Purpose [employer]ClinicalWorks Submission
--- OUTSIDE RECORDS SUMMARY | 2018-03-23 15:54 | XMS REPORT ---
Author Author PINA JUAN JOSE Organization [facility] Address [address] [place] [address] Care Team Providers Care Skin Carver Name Role Phone JUAN JOSE HELLER Unavailable PROBLEMS Type Condition ICD9-CM Code [id number] Code Onset Dates Condition Status SNOMED Code Problem Vitamin D deficiency E55.9 Active 98238223 Problem Palpitations R00.2 Active 86646694 Problem Shortness of breath R06.02 Active 019342949 Problem Iron deficiency anemia, unspecified iron deficiency anemia type D50.9 Active 17513204 Problem Bilateral sensorineural hearing loss H90.3 Active 087148288 Problem Essential tremor G25.0 Active 27920203 Problem Chronic pansinusitis J32.4 Active 31843046 Problem Hypothyroidism (acquired) E03.9 Active 525951107 Problem Generalized anxiety disorder F41.1 Active 002087676 Problem Encounter for dental examination Z01.20 Active 685650081 Problem Mild persistent asthma without complication J45.30 Active 488257719 Problem Essential hypertension I10 Active 80585030 Problem Prediabetes R73.09 Active 743132535 Problem Hyperlipidemia E78.5 Active 88344445 ALLERGIES No Information SOCIAL HISTORY Never Assessed PLAN OF CARE VITAL SIGNS MEDICATIONS No Known Medications RESULTS Name Result Date Reference Range TSH 2016-10-21 TSH 8.110 0.450-4.500 PROCEDURES Procedure Date Ordered Result Body Site ASSAY THYROID STIM HORMONE Oct 21, 2016 VENIPUNCT, ROUTINE* Oct 21, 2016 IMMUNIZATIONS No Known Immunizations MEDICAL (GENERAL) HISTORY Type Description Date Medical History cardiovascular disease-narrowed vessel in heart Medical History asthma Medical History hernia-hiatal and GERD Medical History metabolic syndrome-vitamin d deficiency Medical History thyroid disorder Medical History Unspecified hypothyroidism Medical History Essential hypertension, benign Medical History Essential and other specified forms of tremor Medical History Unspecified vitamin D deficiency Medical History Chronic rhinosinusitis Surgical History tonsillectomy Surgical History ESOPHAGEAL STRETCH Hospitalization History Hospitalization for surgery only Hospitalization History EXOPHAGEAL STRETCH
--- OUTSIDE RECORDS SUMMARY | 2018-03-23 15:54 | XMS REPORT ---
Author Author MILI KNOX Organization [employer] Address Unknown Phone Unavailable Care Team Providers Care Systems Navigator Name Role Phone MILI KNOX CP Unavailable Allergies No Known Allergies Problems [...] Active Problem Vitamin D deficiency E55.9 Active Problem Prediabetes R73.09 Active Problem Encounter for dental examination Z01.20 Active Problem Bilateral sensorineural hearing loss H90.3 Active Medications Medication Code System Code Instructions Start Date End Date Status Dosage Amoxicillin [facility] [address]-36 500 MG Orally every 6 hrs December 25, 2015 January 01, 2016 1 capsule Results No Known Results Summary Purpose eClinicalWorks Submission
--- OUTSIDE RECORDS SUMMARY | 2018-03-23 15:54 | XMS REPORT ---
Author Author PINA JUAN JOSE Organization [facility] Address [address] [place] [address] Care Team Providers Care Financial Services Professional Name Role Phone JUAN JOSE HELLER Unavailable PROBLEMS Type Condition ICD9-CM Code EXX24-GR Code Onset Dates Condition Status SNOMED Code Problem Hypothyroidism (acquired) E03.9 Active 951231348 Problem Palpitations R00.2 Active 97809164 Problem Shortness of breath R06.02 Active 390970547 Problem BMI 45.0-49.9, adult Z68.42 Active 680798130 Problem Iron deficiency anemia, unspecified iron deficiency anemia type D50.9 Active 18714772 Problem Essential tremor G25.0 Active 72150085 Problem Chronic pansinusitis J32.4 Active 13717101 Problem Bilateral sensorineural hearing loss H90.3 Active 870111140 Problem Generalized anxiety disorder F41.1 Active 336016894 Problem Mild persistent asthma without complication J45.30 Active 269041958 Problem Essential hypertension I10 Active 40794522 Problem Hyperlipidemia E78.5 Active 36948672 Problem Prediabetes R73.09 Active 390587128 Problem Vitamin D deficiency E55.9 Active 55561150 ALLERGIES No Information ENCOUNTERS Encounter Location Date Diagnosis [facility] [id number] [place] [address] 30229- 4681 Nov, [facility] [id number] [place] [address] 32257- 6943 Nov, Acute recurrent pansinusitis J01.41 ; Intractable vomiting without nausea, unspecified vomiting type R11.11 ; Mild persistent asthma without complication J45.30 and BMI 45.0-49.9, adult Z68.42 [facility] [address] [id number] [address] Jul, Acute non-recurrent maxillary sinusitis J01.00 [facility] [id number] [place] [address] 03688- 4740 07 Jun, 2017 Other hypervolemia E87.79 ; Pulmonary hypertension I27.20 ; Hypothyroidism (acquired) E03.9 ; Vitamin D deficiency E55.9 ; Prediabetes R73.09 ; Iron deficiency anemia, unspecified iron deficiency anemia type D50.9 ; Essential tremor G25.0 ; Generalized anxiety disorder F41.1 ; Mild persistent asthma without complication J45.30 ; Hyperlipidemia E78.5 and BMI 45.0-49.9, adult Z68.42 [facility] [address] [id number] May, Dental examination Z01.20 [place] [address] 74001- 5411 May, [place] [address] 76515- 6612 May, [place] [address] 26060- 7862 Apr, Encounter for immunization Z23 [place] [address] 44174- 3770 Feb, Generalized anxiety disorder F41.1 [place] [address] 92837- 8689 Feb, Hypothyroidism (acquired) E03.9 and Iron deficiency anemia, unspecified iron deficiency anemia type D50.9 [place] [id number] [place] [address] 30932- 9728 Jan, Encounter for immunization Z23 [place] [address] 99225- 1464 December, Mild persistent asthma without complication J45.30 [place] [address] 22677- 9027 December, Hypothyroidism (acquired) E03.9 ; Mild persistent asthma without complication J45.30 ; Iron deficiency anemia, unspecified iron deficiency anemia type D50.9 and Elevated brain natriuretic peptide (BNP) level R79.89 [place] [id number] [place] [address] 07692- 5205 December, Elevated brain natriuretic peptide (BNP) level R79.89 and Iron deficiency anemia, unspecified iron deficiency anemia type D50.9 [place] [id number] [place] [address] 84257- 2717 December, Essential tremor G25.0 and Generalized anxiety disorder F41.1 [place] [address] 74570- 6626 December, Essential hypertension I10 ; Iron deficiency anemia, unspecified iron deficiency anemia type D50.9 ; Leg swelling M79.89 and Hyperlipidemia E78.5 [place] [id number] [place] [address] 59742- 5662 Nov, Essential hypertension I10 ; Hyperlipidemia E78.5 ; Prediabetes R73.09 ; Leg swelling M79.89 ; Iron deficiency anemia, unspecified iron deficiency anemia type D50.9 and Hypothyroidism (acquired) E03.9 [place] [address] 78480- 7211 Nov, Hypothyroidism (acquired) E03.9 [place] [id number] [place] [address] 77918- 0346 Sep, Hypothyroidism (acquired) E03.9 [place] [id number] [place] [address] 73646- 4498 Sep, Hypothyroidism (acquired) E03.9 [facility] [id number] [place] [address] 46128- 8426 Sep, [place] [id number] [place] [address] 31852- 2439 Jul, [place] [id number] [place] [address] 48337- 8294 Jul, Hypothyroidism (acquired) E03.9 [place] [id number] [place] [address] 46371- 8443 Jul, Hypothyroidism (acquired) E03.9 [place] [address] 15181- 0748 Jul, [place] [address] 62480- 7561 Jul, Anemia, unspecified type D64.9 [place] [address] 45298- 5172 Jun, Anemia, unspecified type D64.9 and Hypothyroidism (acquired ) E03.9 [place] [address] 26507- 4175 Jun, Hypothyroidism (acquired) E03.9 and Anemia, unspecified type D64.9 [place] [address] 64455- 1119 Jun, Hypothyroidism (acquired) E03.9 and Anemia, unspecified type D64.9 [place] [address] 78051- 8709 Jun, [place] [address] 25675- 6756 Jun, Hypothyroidism (acquired) E03.9 ; Essential hypertension I10 ; Prediabetes R73.09 and Hyperlipidemia E78.5 [place] [address] 11893- 8556 Jun, Hypothyroidism (acquired) E03.9 ; Mild persistent asthma without complication J45.30 ; Prediabetes R73.09 ; Hyperlipidemia E78.5 ; Essential hypertension I10 ; Essential tremor G25.0 ; Generalized anxiety disorder F41.1 and Chronic pansinusitis J32.4 [place] [id number] [place] [address] 33912- 8460 24 May, 2016 Pneumonia due to infectious organism, unspecified laterality , unspecified part of lung J18.9 [place] [address] [id number], [place] [address] 0946 May, Encounter for immunization Z23 [facility] [id number] [place] [address] [id number] Mar, Dental examination Z01.20 [facility] [address] [id number] [address] Mar, Essential hypertension I10 [facility] [id number] [place] [address] 472094- 7166 Feb, Essential hypertension I10 [facility] [address] [id number] [place] [address] 809666- 6766 Feb, Essential hypertension I10 [facility] [address] [facility] [id number] [place] [address] 67732- 3396 Feb, [facility] [id number] [place] [address] 02149- 4712 Feb, Hypothyroidism (acquired) E03.9 [facility] [id number] [place] [address] [id number] Jan, Dental examination Z01.20 [facility] [address] [id number] [place] [address] [id number] December, Encounter for dental examination Z01.20 [facility] [address] [id number], [place] [address] 2546 December, [facility] [address] [id number] [place] [address] [id number] December, Encounter for dental examination Z01.20 [facility] [address] [id number], [place] [address] 2546 Nov, Hypothyroidism (acquired) E03.9 [facility] [address] [id number] [id number] Nov, [facility] [address] [id number] [id number] Nov, Encounter for dental examination Z01.20 [facility] [id number] [place] [address] 49712- 9602 Nov, Hypothyroidism (acquired) E03.9 ; Essential hypertension I10 ; Essential tremor G25.0 ; Generalized anxiety disorder F41.1 ; Mild persistent asthma without complication J45.30 and Chronic pansinusitis J32.4 [facility] [id number] [place] [address] 89046- 4388 Nov, [facility] [address] 50005- 1281 Nov, [facility] [address] 96733- 8342 Sep, Cough R05 and Pneumonia of right middle lobe due to infectious organism J18.9 [facility] [address] [id number] May, Encounter for dental examination Z01.20 [facility] [address] 58712- 8498 Apr, Influenza vaccine administered V04.81 [place] [address] 37423- 8312 Apr, Hypocalcemia 275.41 and Unspecified vitamin D deficiency 268.9 [place] [id number] [place] [address] 16453- 7136 16 Apr, 2015 Generalized anxiety disorder 300.02 [facility] [address] 06229- 0874 10 Apr, 2015 Hyperlipidemia 272.4 ; Hypocalcemia 275.41 and Unspecified vitamin D deficiency 268.9 [place] [address] 24064- 3086 09 Apr, 2015 Unspecified hypothyroidism 244.9 and Essential hypertension , benign 401.1 [place] [id number] [place] [address] 80423- 5303 Apr, Unspecified hypothyroidism 244.9 ; Essential hypertension, benign 401.1 ; Chronic rhinosinusitis 473.[address] [facility] [address] [address] Feb, [facility] [address] [place] [address] 84768- 0046 Jan, Hypothyroidism 244.9 [facility] [id number] [place] [address] 42646- 5106 Jan, Chronic rhinosinusitis 473.9 and Unspecified hypothyroidism 244.9 [facility] [id number] [place] [address] 04596- 4017 Jan, [facility] [id number] [place] [address] 21803- 6872 December, Generalized anxiety disorder 300.02 [facility] [id number] [place] [address] [id number] December, Dental examination V72.2 [facility] [id number] [place] [address] 25277- 2224 December, Hypothyroidism 244.9 [facility] [id number] [place] [address] 47653- 2494 December, Hypothyroidism 244.9 [facility] [id number] [place] [address] 63594- 0646 Nov, [facility] [address] [place] [address] 87094- 8288 Nov, [facility] [id number] [place] [address] 25898- 3632 Oct, [facility] [id number] [place] [address] 05116- 5153 Oct, [facility] [id number] [place] [address] 74073- 0813 Oct, [facility] [address] [place] [address] 84983- 3580 Oct, [facility] [place] [facility] [address] [id number] [place] [address]- 3111 20 Oct, 2014 [facility] [place] [facility] [address] [id number] [place] [address]- 8061 20 Oct, 2014 [facility] [place] [facility] [address] [id number] [place] [address]- 6911 Oct, [facility] [place] [facility] [address] [id number] [place] [address]- 1909 Oct, [facility] [place] [facility] [address] [id number] [place] [address]- 1446 Oct, [facility] [place] [facility] [address] [id number] [place] [address]- 1473 Oct, [facility] [place] [facility] [address] [id number] [place] [address]- 0174 Oct, [facility] [place] [facility] [address] [id number] [place] [address]- 7413 18 Oct, 2014 [facility] [place] [facility] [address] [id number] [place] [address]- 1205 Oct, [facility] [place] [facility] [address] [id number] [place] [address]- 0598 Oct, [facility] [place] [facility] [address] [id number] [place] [address]- 3419 Oct, [facility] [place] [facility] [address] [id number] [place] [address]- 4444 Oct, [facility] [place] [facility] [address] [id number] [place] [address]- 4113 Sep, [facility] [place] [facility] [address] [id number] [place] [address]- 7829 Sep, [facility] [place] [facility] [address] [id number] [place] [address]- 6242 Aug, [facility] [place] [facility] [address] [id number], [place] [address]- 1252 Aug, [facility] [place] [facility] [address] [id number] [place] [address]- 6370 Aug, [facility] [place] [facility] [address] [id number] [place] [address]- 9026 Aug, [facility] [place] [facility] [address] [id number] [place] [address]- 0617 Aug, [facility] [place] [facility] [address] [id number] [place] [address]- 5782 Aug, [facility] [place] [facility] [address] [id number] [place] [address]- 9942 Aug, [facility] [place] [facility] [address] [id number] [place] [address]- 9586 Aug, [facility] [place] [facility] [address] [id number] [place] [address]- 8831 Jun, [facility] [place] [facility] [address] [id number] [place] [address]- 1786 Jun, [facility] [place] [facility] [address] [id number], [place] [address]- 9620 May, [facility] [place] [facility] [address] [id number] [place] [address]- 9410 May, [facility] [place] [facility] [address] [id number], [place] [address]- 4147 May, [facility] [place] [facility] [address] [id number], [place] [address]- 2045 May, [facility] [place] [facility] [address] [id number] [place] [address]- 5273 May, [facility] [place] [facility] [address] [id number], [place] [address]- 5450 May, [facility] [place] [facility] [address] [id number] [place] [address]- 4732 Apr, [facility] [place] [facility] [address] [id number] [place] [address]- 1972 24 Apr, 2013 [facility] [place] [facility] [address] [id number] [place] [address]- 4106 17 Apr, 2013 [facility] [place] [facility] [address] [id number] [place] [address]- 7946 17 Apr, 2013 [facility] [place] [facility] [address] [id number] [place] [address]- 6416 Apr, 2013 [facility] [place] [facility] [address] [id number] [place] [address]- 9274 Apr, 2013 [facility] [place] [facility] [address] [id number] [place] [address]- 0788 Apr, [facility] [place] [facility] [address] [id number] [place] [address]- 8917 Apr, [facility] [place] [facility] [address] [id number] [place] [address]- 9697 Mar, [facility] [place] [facility] [address] [id number] [place] [address]- 6074 Mar, [facility] [place] [facility] [address] [id number] [place] [address]- 4975 Mar, [facility] [place] [facility] [address] [id number] [place] [address]- 3646 Mar, [facility] [place] [facility] [address] [id number] [place] [address]- 6566 Mar, [facility] [place] [facility] [address] [id number] [place] [address]- 3808 Mar, [facility] [place] [facility] [address] [id number] [place] [address]- 2431 Mar, [facility] [place] [facility] [address] [id number] [place] [address]- 8597 Mar, [facility] [place] [facility] [address] [id number] [place] [address]- 6959 Feb, [facility] [place] [facility] [address] [id number] [place] [address]- 3352 Feb, [facility] [place] [facility] [address] [id number] [place] [address]- 9447 Feb, [facility] [place] [facility] [address] [id number] [place] [address]- 6164 Feb, [facility] [place] [facility] [address] [id number] [place] [address]- 0708 Jan, [facility] [place] [facility] [address] [id number] [place] [address]- 5769 Jan, [facility] [place] [facility] [address] [id number] [place] [address]- 5055 December, [facility] [place] [facility] [address] [id number] [place] [address]- 7512 December, [facility] [place] [facility] [address] [id number] [place] [address]- 3603 Nov, [facility] [place] [facility] [address] [id number] [place] [address]- 7918 Nov, [facility] [place] [facility] [address] [id number] [place] [address]- 2791 Nov, [facility] [place] [facility] [address] [id number] [place] [address]- 9679 Nov, [facility] [place] [facility] [address] [id number] [place] [address]- 7947 Nov, [facility] [place] [facility] [address] [id number] [place] [address]- 0661 Nov, [facility] [place] [facility] [address] [id number] [place] [address]- 3984 Nov, [facility] [place] [facility] [address] [id number] [place] [address]- 4498 Nov, [facility] [place] [facility] [address] [id number] [place] [address]- 5780 Nov, [facility] [place] [facility] [address] [id number] [place] [address]- 5225 Sep, [facility] [place] [facility] [address] [id number] [place] [address]- 7691 Sep, [facility] [place] [facility] [address] [id number] [place] [address]- 2922 Sep, [facility] [place] [facility] [address] [id number] [place] [address]- 9909 Sep, [facility] [place] [facility] [address] [id number] [place] [address]- 5009 Aug, [facility] [place] [facility] [address] [id number] [place] [address]- 2900 Jun, [facility] [place] [facility] [address] [id number] [place] [address]- 6777 Jun, [facility] [place] [facility] [address] [id number] [place] [address]- 8657 May, [facility] [place] [facility] [address] [id number] [place] [address]- 5967 Apr, [facility] [place] [facility] [address] [id number] [place] [address]- 7470 Mar, [facility] [place] [facility] [address] [id number] [place] [address]- 2742 Feb, [facility] [place] [facility] [address] [id number] [place] [address]- 2770 Jan, [facility] [place] [facility] [address] [id number] [place] [address]- 0971 December, [facility] [place] [facility] [address] [id number] [place] [address]- 7679 Nov, [facility] [place] [facility] [address] [id number] [place] [address]- 3377 Oct, [facility] [place] [facility] [address] [id number] [place] [address]- 8305 Oct, [facility] [place] [facility] [address] [id number] [place] [address]- 1119 Oct, [facility] [place] [facility] [address] [id number] [place] [address]- 4456 18 Sep, 2012 [facility] [place] [facility] [address] [id number] [place] [address]- 4877 Sep, [facility] [place] [facility] [address] [id number] [place] [address]- 3499 Aug, [facility] [place] [facility] [address] [id number] [place] [address]- 6110 Aug, [facility] [place] [facility] [address] [id number] [place] [address]- 0734 Aug, [facility] [place] [facility] [address] [id number], [place] [address]- 0334 Aug, [facility] [place] [facility] [address] [facility] [id number] [place] [address]- 0964 Jul, [facility] [place] [facility] [address] [facility] [id number], [place] [address]- 4524 Jul, [facility] [place] [facility] [address] [facility] [id number], [place] [address]- 4678 May, [facility] [place] [facility] [address] [id number], [place] [address]- 3520 May, [facility] [place] [facility] [address] [id number] [place] [address]- 5210 May, [facility] [place] [facility] [address] [id number], [place] [address]- 8728 May, [facility] [place] [facility] [address] [facility] [id number][place]012- 7853 May, [facility] [place] [facility] [address] [id number], [place] [address]- 0816 Apr, [facility] [address] [id number] [place] [address]- 0366 Mar, [facility] [address] [id number] [place] [address]- 1686 Mar, [facility] [address] [id number] [place] [address] 2546 Feb, [facility] [address] [id number] [place] [address] 2546 December, [facility] [address] [id number] [place] [address] 2546 December, [facility] [address] [id number] [place] [address] December, [facility] [address] [place] [id number] December, [facility] [address] [place], [place] [id number] December, [facility] [address] [id number] [place] [address] December, [facility] [address] [id number] [id number] December, [facility] [address] [id number] [place] [address] Nov, [facility] [address] [id number] [place] [address] Jul, [facility] [address] [id number] [place] [address] Jul, [facility] [address] [id number] [place] [address] Jun, [facility] [address] [id number] [place] [address] Feb, [facility] [address] [id number] [place] [address] Jan, [facility] [address] [facility] [id number] [place] [address] May, [facility] [address] [facility] [id number], [place] [address] May, [facility] [address] [facility] [id number] [place] [address] May, IMMUNIZATIONS No Known Immunizations SOCIAL HISTORY Never Assessed REASON FOR VISIT Refill Request PLAN OF CARE VITAL SIGNS MEDICATIONS Medication Instructions Dosage Frequency Start Date End Date Duration Status Levothyroxine Sodium 175 MCG Orally Once a day 1 tablet 24h 30 Active RESULTS No Results PROCEDURES No Known procedures INSTRUCTIONS MEDICATIONS ADMINISTERED No Known Medications MEDICAL (GENERAL) HISTORY Type Description Date Medical [...]
--- OUTSIDE RECORDS SUMMARY | 2018-03-23 15:54 | XMS REPORT ---
Author Author PINA JUAN JOSE Organization [facility] Address [address] [place] [address] Care Team Providers Care Consumer Sales Representative Name Role Phone RUSSELL HELLERHANY Unavailable PROBLEMS Type Condition ICD9-CM Code DIF18-AA Code Onset Dates Condition Status SNOMED Code Problem Vitamin D deficiency E55.9 Active 56089208 Problem Palpitations R00.2 Active 43279165 Problem Shortness of breath R06.02 Active 697525836 Problem Iron deficiency anemia, unspecified iron deficiency anemia type D50.9 Active 27492267 Problem Bilateral sensorineural hearing loss H90.3 Active 243662078 Problem Essential tremor G25.0 Active 22924805 Problem Chronic pansinusitis J32.4 Active 20707225 Problem Hypothyroidism (acquired) E03.9 Active 035832272 Problem Generalized anxiety disorder F41.1 Active 704528349 Problem Encounter for dental examination Z01.20 Active 674278838 Problem Mild persistent asthma without complication J45.30 Active 976535697 Problem Essential hypertension I10 Active 74646864 Problem Prediabetes R73.09 Active 995620991 Problem Hyperlipidemia E78.5 Active 91480898 ALLERGIES No Information SOCIAL HISTORY Never Assessed PLAN OF CARE VITAL SIGNS MEDICATIONS Medication Instructions Dosage Frequency Start Date End Date Duration Status Levothyroxine Sodium 150 MCG Orally Once a day 1 tablet 24h Nov, 30 days Active RESULTS No Results PROCEDURES No Known procedures IMMUNIZATIONS No Known Immunizations MEDICAL (GENERAL) HISTORY [...]
--- OUTSIDE RECORDS SUMMARY | 2018-03-23 15:54 | XMS REPORT ---
Author Author JUAN JOSE HELLER [facility] eClinicalWorks Address Unknown Phone Unavailable Care Team Providers Care Garbage Collector Supervisor Name Role Phone JUAN JOSE HELLER CP [...] Problem Vitamin D deficiency E55.9 Active Assessment Hypothyroidism (acquired) E03.9 Active Problem Prediabetes R73.09 Active Problem Encounter for dental examination Z01.20 Active Assessment Anemia, unspecified type D64.9 Active Problem Bilateral sensorineural hearing loss H90.3 Active Medications Medication Code System Code Instructions Start Date End Date Status Dosage Levothyroxine Sodium [facility] [address]-13 175 MCG Orally Once a day December 27, 2015 1 tablet Results No Known Results Summary Purpose eClinicalWorks Submission
--- OUTSIDE RECORDS SUMMARY | 2018-03-23 15:55 | XMS REPORT ---
Author Author JUAN JOSE HELLER [facility] eClinicalWorks Address Unknown Phone Unavailable Care Team Providers Care Front Counter Clerk Name Role Phone JUAN JOSE HELLER Unavailable Allergies No Known Allergies Problems Problem Type Condition ICD-9 Code Onset Dates Condition Status Assessment Unspecified hypothyroidism 244.9 Active Problem Generalized anxiety disorder 300.02 Active Problem Palpitations 785.1 Active Assessment Essential hypertension, benign 401.1 Active Problem Chronic rhinosinusitis 473.9 Active Problem Unspecified hypothyroidism 244.9 Active Problem Asthma, moderate 493.90 Active Problem Shortness of breath 786.05 Active Problem Unspecified vitamin D deficiency 268.9 Active Problem Essential hypertension, benign 401.1 Active Problem Essential and other specified forms of tremor 333.1 Active Medications No Known Medications Procedures Procedure Coding System Code Date COMPREHEN METABOLIC PANEL CPT-4 80205 May 08, 2015 VENIPUNCT, ROUTINE* CPT-4 87427 May 08, 2015 LIPID PANEL CPT-4 61988 May 08, 2015 Results No Known Results Summary Purpose eClinicalWorks Submission
--- OUTSIDE RECORDS SUMMARY | 2018-03-23 15:55 | XMS REPORT ---
Author Author JUAN JOSE HELLER Organization [facility] Address [address] [place] [address] Care Team Providers Care Lands Resource Manager Name Role Phone PINARUSSELL PORTILLOHANY Unavailable PROBLEMS Type Condition ICD9-CM Code MPC62-BL Code Onset Dates Condition Status SNOMED Code Problem Vitamin D deficiency E55.9 Active 71763287 Problem Palpitations R00.2 Active 02248102 Problem Shortness of breath R06.02 Active 811788592 Problem Iron deficiency anemia, unspecified iron deficiency anemia type D50.9 Active 66832240 Problem Bilateral sensorineural hearing loss H90.3 Active 479055962 Problem Essential tremor G25.0 Active 80515315 Problem Chronic pansinusitis J32.4 Active 60316104 Problem Hypothyroidism (acquired) E03.9 Active 011413325 Problem Generalized anxiety disorder F41.1 Active 810075202 Problem Encounter for dental examination Z01.20 Active 469026774 Problem Mild persistent asthma without complication J45.30 Active 061929897 Problem Essential hypertension I10 Active 80107438 Problem Prediabetes R73.09 Active 995241433 Problem Hyperlipidemia E78.5 Active 24528827 ALLERGIES No Information SOCIAL HISTORY Never Assessed PLAN OF CARE VITAL SIGNS MEDICATIONS No Known Medications RESULTS No Results PROCEDURES No Known procedures [...]
--- OUTSIDE RECORDS SUMMARY | 2018-03-23 15:55 | XMS REPORT ---
Author Author JUAN JOSE HELLER eClinicalWorks Address Unknown Phone Unavailable Care Team Providers Care Communications Station Manager Name Role Phone JUAN JOSE HELLER CP Unavailable Allergies No Known Allergies Problems Problem Type Condition Code Onset Dates Condition Status Problem Unspecified vitamin D deficiency 268.9 Active Problem Essential and other specified forms of tremor 333.1 Active Problem Shortness of breath 786.05 Active Problem Asthma, moderate 493.90 Active Problem Chronic rhinosinusitis 473.9 Active Problem Hyperlipidemia 272.4 Active Problem Unspecified hypothyroidism 244.9 Active Problem Essential hypertension, benign 401.1 Active Problem Encounter for dental examination Z01.20 Active Problem Bilateral sensorineural hearing loss 389.18 Active Assessment Unspecified vitamin D deficiency 268.9 Active Assessment Hypocalcemia 275.41 Active Problem Palpitations 785.1 Active Problem Generalized anxiety disorder 300.02 Active Medications No Known Medications Procedures Procedure Coding System Code Date ASSAY OF VITAMIN D CPT-4 51592 May 24, 2015 BASIC METABOLIC PANEL CPT-4 25837 May 24, 2015 ASSAY OF CALCIUM CPT-4 63376 May 24, 2015 VENIPUNCT, ROUTINE* CPT-4 33154 May 24, 2015 Results Name Result Date Reference Range Unit Abnormality Flag ROUTINE VENIPUNCTURE CALCIUM IONIZED Summary Purpose eClinicalWorks Submission
--- OUTSIDE RECORDS SUMMARY | 2018-03-23 15:55 | XMS REPORT ---
Author Author JUAN JOSE HELLER eClinicalWorks Address Unknown Phone Unavailable Care Team Providers Care Pantograph Setter Name Role Phone JUAN JOSE HELLER CP [...]
--- OUTSIDE RECORDS SUMMARY | 2018-03-23 15:55 | XMS REPORT ---
Author Author JUAN JOSE HELLER Organization [facility] Address [address] [place] [address] Care Team Providers Care Health Teacher Name Role Phone RUSSELL HELLERHANY Unavailable PROBLEMS Type Condition ICD9-CM Code [id number] Code Onset Dates Condition Status SNOMED Code Problem Mild persistent asthma without complication J45.30 Active 740925761 Problem Generalized anxiety disorder F41.1 Active 379596647 Problem Palpitations R00.2 Active 53967770 Problem Iron deficiency anemia, unspecified iron deficiency anemia type D50.9 Active 12985789 Problem Hypothyroidism (acquired) E03.9 Active 118376127 Problem Shortness of breath R06.02 Active 341546246 Problem Vitamin D deficiency E55.9 Active 84010931 Problem Essential hypertension I10 Active 85860364 Problem Essential tremor G25.0 Active 66846058 Problem Encounter for dental examination Z01.20 Active 014608722 Problem Bilateral sensorineural hearing loss H90.3 Active 978174208 Problem Hyperlipidemia E78.5 Active 88197998 Problem Prediabetes R73.09 Active 866655138 Problem Chronic pansinusitis J32.4 Active 04109500 ALLERGIES Unknown Allergies SOCIAL HISTORY No smoking Hx information available PLAN OF CARE VITAL SIGNS MEDICATIONS Unknown Medications RESULTS Name Result Date Reference Range TSH 2016-08-21 TSH 3.920 0.450-4.500 PROCEDURES Procedure Date Ordered Related Diagnosis Body Site ASSAY THYROID STIM HORMONE Aug 21, 2016 VENIPUNCT, ROUTINE* Aug 21, 2016 IMMUNIZATIONS No Known Immunizations
--- OUTSIDE RECORDS SUMMARY | 2018-03-23 15:55 | XMS REPORT ---
Author Author JUAN JOSE HELLER Organization [facility] Address [address] [place] [address] Care Team Providers Care Cigar Tobacco Rehandler Name Role Phone PINARUSSELL PORTILLOHANY Unavailable PROBLEMS Type Condition ICD9-CM Code TTS89-GL Code Onset Dates Condition Status SNOMED Code Problem Vitamin D deficiency E55.9 Active 32129270 Problem Palpitations R00.2 Active 19074251 Problem Shortness of breath R06.02 Active 121035629 Problem Iron deficiency anemia, unspecified iron deficiency anemia type D50.9 Active 01457539 Problem Bilateral sensorineural hearing loss H90.3 Active 123882961 Problem Essential tremor G25.0 Active 74494164 Problem Chronic pansinusitis J32.4 Active 35214961 Problem Hypothyroidism (acquired) E03.9 Active 544284813 Problem Generalized anxiety disorder F41.1 Active 831782014 Problem Encounter for dental examination Z01.20 Active 701831248 Problem Mild persistent asthma without complication J45.30 Active 736954040 Problem Essential hypertension I10 Active 93032375 Problem Prediabetes R73.09 Active 258612224 Problem Hyperlipidemia E78.5 Active 28912343 ALLERGIES Substance Reaction Event Type Date Status Hydrochlorothiazide Unknown Drug Allergy December, Active Amoxicillin Unknown Drug Allergy December, Active Nuts Unknown Non Drug Allergy December, Active Seasonal Unknown Non Drug Allergy December, Active SOCIAL HISTORY Never Assessed PLAN OF CARE Activity Details Follow Up 4 Weeks Reason: VITAL SIGNS Height 68 in 2017-01-05 Weight 315.6 lbs 2017-01-05 Temperature 98.1 degrees Fahrenheit 2017-01-05 Heart Rate 64 bpm 2017-01-05 Respiratory Rate 20 2017-01-05 BMI 47.98 kg/m2 2017-01-05 Blood pressure systolic 148 mmHg 2017-01-05 Blood pressure diastolic 86 mmHg 2017-01-05 MEDICATIONS Medication Instructions Dosage Frequency Start Date End Date Duration Status Albuterol Sulfate 1.25 MG/3ML Inhalation 4 times a day 3 ml as needed 6h 24 May, 2016 Active Proventil HFA 108 (90 Base) MCG/ACT INHALE TWO PUFFS BY MOUTH FOUR TIMES DAILY NEEDED Active Melatonin 1 MG by oral route Oct, Active Sertraline HCl 100 mg Orally Once a day 1 tablet 24h 90 days Active Vitamin D-3 1000 UNIT Orally Once a day 1 capsule 24h Active Flonase 50 MCG/ACT Nasally Once a day 1 spray in each nostril 24h Jan, Active Symbicort 160-4.5 MCG/ACT INHALE TWO PUFFS BY MOUTH TWICE DAILY Active Levothyroxine Sodium 175 MCG Orally Once a day 1 tablet 24h Nov, 30 days Active Propranolol HCl 40 mg Orally Three times a day 1 tablet 8h 90 days Active RESULTS No Results PROCEDURES No [...]
--- OUTSIDE RECORDS SUMMARY | 2018-03-23 15:55 | XMS REPORT ---
Author Author JUAN JOSE HELLER Organization [facility] Address [address] [place] [address] Care Team Providers Care Multigrapher Name Role Phone PINARUSSELL PORTILLOHANY Unavailable PROBLEMS Type Condition ICD9-CM Code CUR08-VD Code Onset Dates Condition Status SNOMED Code Problem Mild persistent asthma without complication J45.30 Active 226101781 Problem Generalized anxiety disorder F41.1 Active 575707680 Problem Palpitations R00.2 Active 87362754 Problem Iron deficiency anemia, unspecified iron deficiency anemia type D50.9 Active 68355401 Problem Hypothyroidism (acquired) E03.9 Active 857250318 Problem Shortness of breath R06.02 Active 537761379 Problem Vitamin D deficiency E55.9 Active 90227952 Problem Essential hypertension I10 Active 36902490 Problem Essential tremor G25.0 Active 58432468 Problem Encounter for dental examination Z01.20 Active 353997480 Problem Bilateral sensorineural hearing loss H90.3 Active 144126473 Problem Hyperlipidemia E78.5 Active 67885899 Problem Prediabetes R73.09 Active 631452288 Problem Chronic pansinusitis J32.4 Active 56832094 ALLERGIES Unknown Allergies SOCIAL HISTORY No smoking Hx information available PLAN OF CARE VITAL SIGNS MEDICATIONS Medication Instructions Dosage Frequency Start Date End Date Duration Status Levothyroxine Sodium 150 MCG Orally Once a day 1 tablet 24h Nov, 30 days Active RESULTS No Results PROCEDURES No Known procedures IMMUNIZATIONS No Known Immunizations
--- OUTSIDE RECORDS SUMMARY | 2018-03-23 15:55 | XMS REPORT ---
Author Author JUAN JOSE HELLER Organization [facility] Address [address] [place] [address] Care Team Providers Care Bookkeepers Supervisor Name Role Phone PINARUSSELLJUAN JOSE Unavailable PROBLEMS Type Condition ICD9-CM Code HVQ03-VC Code Onset Dates Condition Status SNOMED Code Problem Vitamin D deficiency E55.9 Active 66321277 Problem Palpitations R00.2 Active 89066840 Problem Shortness of breath R06.02 Active 623224658 Problem Iron deficiency anemia, unspecified iron deficiency anemia type D50.9 Active 88992254 Problem Bilateral sensorineural hearing loss H90.3 Active 147089745 Problem Essential tremor G25.0 Active 75128988 Problem Chronic pansinusitis J32.4 Active 46874453 Problem Hypothyroidism (acquired) E03.9 Active 102883820 Problem Generalized anxiety disorder F41.1 Active 572991192 Problem Encounter for dental examination Z01.20 Active 509699918 Problem Mild persistent asthma without complication J45.30 Active 539781235 Problem Essential hypertension I10 Active 85563384 Problem Prediabetes R73.09 Active 002031174 Problem Hyperlipidemia E78.5 Active 88977339 ALLERGIES Unknown Allergies SOCIAL HISTORY No smoking Hx information available PLAN OF CARE VITAL SIGNS MEDICATIONS Medication Instructions Dosage Frequency Start Date End Date Duration Status Levothyroxine Sodium 137 MCG Orally Once a day 1 tablet 24h Nov, 30 days Active RESULTS No Results PROCEDURES No Known procedures IMMUNIZATIONS No Known Immunizations
--- OUTSIDE RECORDS SUMMARY | 2018-03-23 15:55 | XMS REPORT ---
Author Author JUAN JOSE HELLER eClinicalWorks Address Unknown Phone Unavailable Care Team Providers Care Topographical Surveyor Name Role Phone JUAN JOSE HELLER Unavailable [...] Active Assessment Hypothyroidism (acquired) E03.9 Active Problem Encounter for dental examination Z01.20 Active Problem Bilateral sensorineural hearing loss H90.3 Active Medications Medication Code System Code Instructions Start Date End Date Status Dosage Levothyroxine Sodium [facility] [address]-56 150 MCG Orally Once a day December 27, 2015 1 tablet Results No Known Results Summary Purpose eClinicalWorks Submission
--- OUTSIDE RECORDS SUMMARY | 2018-03-23 15:55 | XMS REPORT ---
Author Author JUAN JOSE HELLER eClinicalWorks Address Unknown Phone Unavailable Care Team Providers Care Drum Barker Operator Name Role Phone JUAN JOSE HELLRE CP Unavailable Allergies, Adverse Reactions, Alerts Substance Reaction Event Type Hydrochlorothiazide Info Not Available Drug Allergy Nuts Info Not Available Non Drug Allergy Seasonal Info Not Available Non Drug Allergy Problems Problem Type Condition Code Onset Dates [...] Problem Vitamin D deficiency E55.9 Active Assessment Chronic pansinusitis J32.4 Active Assessment Mild persistent asthma without complication J45.30 Active Assessment Essential hypertension I10 Active Assessment Hypothyroidism (acquired) E03.9 Active Assessment Generalized anxiety disorder F41.1 Active Problem Encounter for dental examination Z01.20 Active Assessment Essential tremor G25.0 Active Problem Bilateral sensorineural hearing loss H90.3 Active Medications Medication Code System Code Instructions Start Date End Date Status Dosage Symbicort [facility] 01190172035 160-4.5 MCG/ACT INHALE TWO PUFFS BY MOUTH TWICE DAILY Propranolol HCl [facility] 52971671837 40 MG TAKE ONE TABLET BY MOUTH THREE TIMES DAILY Sertraline HCl [facility] 25280222701 100 MG TAKE ONE TABLET BY MOUTH DAILY Proventil HFA [facility] 70685222378 108 (90 Base) MCG/ACT INHALE TWO PUFFS BY MOUTH FOUR TIMES DAILY NEEDED Alavert [facility] [address]-99 10 mg December 22, 2013 take [address] on top of the tongue to dissolve, then swallow by Oral route 1 time per day Potassium Chloride [place] [facility] 63964746549 10 MEQ TAKE ONE TABLET BY MOUTH ONCE DAILY Melatonin [facility] [address]-98 1 MG Sublingual November 15, 2014 by oral route Levothyroxine Sodium [facility] [address]-34 137 MCG Orally Once a day 1 capsule Flonase [facility] [address]-15 50 MCG/ACT Nasally Once a day January 31, 2015 1 spray in each nostril Procedures Procedure Coding System Code Date VENIPUNCT, ROUTINE* CPT-4 17449 December 25, 2015 Office Visit, Est Pt., Level 3 CPT-4 60889 December 25, 2015 ASSAY THYROID STIM HORMONE CPT-4 98032 December 25, 2015 Vital Signs Date/Time: December 25, 2015 Temperature 98.4 F Weight 296.4 lbs Height 68 in BMI 45.06 Index Blood Pressure Diastolic 76 mmHg Blood Pressure Systolic 133 mmHg Cardiac Monitoring Heart Rate 77 bpm Results Name Result Date Reference Range Unit Abnormality Flag TSH ----TSH 4.610 [id number] 0.450-4.500 uIU/mL H Summary Purpose eClinicalWorks Submission
--- OUTSIDE RECORDS SUMMARY | 2018-03-23 15:55 | XMS REPORT ---
Author Author JUAN JOSE HELLER [facility] eClinicalWorks Address Unknown Phone Unavailable Care Team Providers Care Customer Service Analyst Name Role Phone JUAN JOSE HELLER CP [...] Problem Vitamin D deficiency E55.9 Active Assessment Essential hypertension I10 Active Problem Prediabetes R73.09 Active Problem Encounter for dental examination Z01.20 Active Problem Bilateral sensorineural hearing loss H90.3 Active Medications No Known Medications Results No Known Results Summary Purpose eClinicalWorks Submission
--- OUTSIDE RECORDS SUMMARY | 2018-03-23 15:55 | XMS REPORT ---
Author Author JUAN JOSE HELLER [facility] eClinicalWorks Address Unknown Phone Unavailable Care Team Providers Care Maintenance Coordinator Name Role Phone JUAN JOSE HELLER CP [...] Medications Procedures Procedure Coding System Code Date BLOOD SMEAR INTERPRETATION CPT-4 13681 Jul 10, 2016 IRON BINDING TEST CPT-4 03761 Jul 10, 2016 AUTOMATED RETICULOCYTE COUNT CPT-4 51994 Jul 10, 2016 ASSAY OF FERRITIN CPT-4 50515 Jul 10, 2016 ASSAY OF IRON CPT-4 16484 Jul 10, 2016 VENIPUNCT, ROUTINE* CPT-4 77896 Jul 10, 2016 ASSAY THYROID STIM HORMONE CPT-4 52765 Jul 10, 2016 Results Name Result Date Reference Range Unit Abnormality Flag PERIPHERAL BLOOD SMEAR ----PLTs Appear normal. [id number] IRON + TIBC ----Iron Saturation 7 [id number] 15-55 % LL ----Iron Bind.Cap.(TIBC) 389 29150446 250-450 ug/dL ----Iron, Serum 28 49902916 27-139 ug/dL ----UIBC 361 45821461 118-369 ug/dL ROUTINE VENIPUNCTURE RETICULOCYTE COUNT ----Reticulocyte Count 1.8 91129594 0.6-2.6 % TSH ----TSH 6.830 [id number] 0.450-4.500 uIU/mL H FERRITIN, SERUM ----Ferritin, Serum 19 20160710 15-150 ng/mL Summary Purpose eClinicalWorks Submission
--- OUTSIDE RECORDS SUMMARY | 2018-03-23 15:55 | XMS REPORT ---
Author Author JUAN JOSE HELLER Organization [facility] Address [address] [place] [address] Care Team Providers Care Transit Department Clerk Name Role Phone RUSSELL HELLERHANY Unavailable PROBLEMS Type Condition ICD9-CM Code CJV07-UD Code Onset Dates Condition Status SNOMED Code Problem Chronic pansinusitis J32.4 Active 41130547 Problem Palpitations R00.2 Active 96799282 Problem Mild persistent asthma without complication J45.30 Active 378469041 Problem Hypothyroidism (acquired) E03.9 Active 245173345 Problem Essential hypertension I10 Active 78271541 Problem Vitamin D deficiency E55.9 Active 54653559 Problem Generalized anxiety disorder F41.1 Active 079706682 Problem Essential tremor G25.0 Active 30571751 Problem Shortness of breath R06.02 Active 310599169 Problem Prediabetes R73.09 Active 675251818 Problem Encounter for dental examination Z01.20 Active 604714747 Problem Bilateral sensorineural hearing loss H90.3 Active 077932184 Assessment Essential hypertension I10 29 Feb, 2016 Active 78431249 Problem Hyperlipidemia E78.5 Active 38395837 ALLERGIES Unknown Allergies SOCIAL HISTORY No smoking Hx information available PLAN OF CARE VITAL SIGNS MEDICATIONS Unknown Medications RESULTS Name Result Date Reference Range [facility] 2016-03-27 Glucose, Serum 103 65-99 BUN 10 8-27 Creatinine, Serum 0.93 0.57-1.00 eGFR If NonAfricn Am 66 >59 eGFR If Africn Am 76 >59 BUN/Creatinine Ratio 11 11-26 Sodium, Serum 142 134-144 Potassium, Serum 4.6 3.5-5.2 Chloride, Serum 102 97-108 Carbon Dioxide, Total 27 18-29 Calcium, Serum 9.6 8.7-10.3 Protein, Total, Serum 6.7 6.0-8.5 Albumin, Serum 4.3 3.6-4.8 Globulin, Total 2.4 1.5-4.5 A/G Ratio 1.8 1.1-2.5 Bilirubin, Total 0.3 0.0-1.2 Alkaline Phosphatase, S 77 39-117 AST (SGOT) 19 0-40 ALT (SGPT) 17 0-32 PROCEDURES Procedure Date Ordered Related Diagnosis Body Site COMPREHEN METABOLIC PANEL March 27, 2016 VENIPUNCT, ROUTINE* March 27, 2016 IMMUNIZATIONS No Known Immunizations
--- OUTSIDE RECORDS SUMMARY | 2018-03-23 15:56 | XMS REPORT ---
Author Author PINA JUAN JOSE Organization [facility] Address [address] [place] [address] Care Team Providers Care Deputy Sheriff Generalist/Bailiff Name Role Phone RUSSELL HELLERHANY Unavailable PROBLEMS Type Condition ICD9-CM Code UIJ36-XJ Code Onset Dates Condition Status SNOMED Code Problem Vitamin D deficiency E55.9 Active 04111615 Problem Palpitations R00.2 Active 02784827 Problem Shortness of breath R06.02 Active 832476426 Problem Iron deficiency anemia, unspecified iron deficiency anemia type D50.9 Active 17017736 Problem Bilateral sensorineural hearing loss H90.3 Active 823441256 Problem Essential tremor G25.0 Active 83209543 Problem Chronic pansinusitis J32.4 Active 14653890 Problem Hypothyroidism (acquired) E03.9 Active 735286029 Problem Generalized anxiety disorder F41.1 Active 019155305 Problem Encounter for dental examination Z01.20 Active 600911433 Problem Mild persistent asthma without complication J45.30 Active 189030288 Problem Essential hypertension I10 Active 69019803 Problem Prediabetes R73.09 Active 952562191 Problem Hyperlipidemia E78.5 Active 09434721 ALLERGIES No Information SOCIAL HISTORY Never Assessed PLAN OF CARE Activity Details Follow Up prn Reason: VITAL SIGNS MEDICATIONS Unknown Medications RESULTS No Results PROCEDURES Procedure Date Ordered Result Body Site PULMONARY FUNCTION TEST (IN-HOUSE) 2017-01-19 Moderately severe obstruction with no significant improvement postmed. NEB/MDI DEMO January 19, 2017 RESPIRATORY FLOW VOLUME LOOP January 19, 2017 SPIROMETRY January 19, 2017 SPRIOMETRY CHALLENGE January 19, 2017 IMMUNIZATIONS No Known Immunizations MEDICAL (GENERAL) HISTORY [...]
--- OUTSIDE RECORDS SUMMARY | 2018-03-23 15:56 | XMS REPORT ---
Author Author TERRI WILKERSON Organization [facility] Address [address] [place] [address] Care Team Providers Care Certified Tumor Registrar Name Role Phone TERRI WILKERSON Unavailable PROBLEMS Type Condition ICD9-CM Code [id number] Code Onset Dates Condition Status SNOMED Code Problem Hypothyroidism (acquired) E03.9 Active 579009682 Problem Palpitations R00.2 Active 05192574 Problem Shortness of breath R06.02 Active 487980377 Problem BMI 45.0-49.9, adult Z68.42 Active 119861325 Problem Iron deficiency anemia, unspecified iron deficiency anemia type D50.9 Active 42567380 Problem Essential tremor G25.0 Active 47005419 Problem Chronic pansinusitis J32.4 Active 75007739 Problem Bilateral sensorineural hearing loss H90.3 Active 870264762 Problem Generalized anxiety disorder F41.1 Active 028280815 Problem Mild persistent asthma without complication J45.30 Active 340844891 Problem Essential hypertension I10 Active 68787509 Problem Hyperlipidemia E78.5 Active 59038624 Problem Prediabetes R73.09 Active 790258513 Problem Vitamin D deficiency E55.9 Active 29796118 ALLERGIES Substance Reaction Event Type Date Status Hydrochlorothiazide Unknown Drug Allergy Jul, Active Amoxicillin Unknown Drug Allergy Jul, Active Nuts Unknown Non Drug Allergy Jul, Active Seasonal Unknown Non Drug Allergy Jul, Active ENCOUNTERS Encounter Location Date Diagnosis [facility] [address] [facility] [id number], [place] [address] Nov, [facility] [address] [facility] [id number], [place] [address] Nov, Acute recurrent pansinusitis J01.41 ; Intractable vomiting without nausea, unspecified vomiting type R11.11 ; Mild persistent asthma without complication J45.30 and BMI 45.0-49.9, adult Z68.42 [facility] [address] [place] [address] Jul, Acute non-recurrent maxillary sinusitis J01.00 [facility] [address] [address] 07 Jun, 2017 Other hypervolemia E87.79 ; Pulmonary hypertension I27.20 ; Hypothyroidism (acquired) E03.9 ; Vitamin D deficiency E55.9 ; Prediabetes R73.09 ; Iron deficiency anemia, unspecified iron deficiency anemia type D50.9 ; Essential tremor G25.0 ; Generalized anxiety disorder F41.1 ; Mild persistent asthma without complication J45.30 ; Hyperlipidemia E78.5 and BMI 45.0-49.9, adult Z68.42 [facility] [address] [id number] May, Dental examination Z01.20 [place] [address] [address] May, [place] [address] [address]- [address] May, [place] [address] [address]- [address] Apr, Encounter for immunization Z23 [place] [address] [address]- 86[address] Feb, Generalized anxiety disorder F41.[address] [address] Feb, Hypothyroidism (acquired) E03.9 and Iron deficiency anemia, unspecified iron deficiency anemia type D50.9 [place] [address] [address]- [address] Jan, Encounter for immunization Z23 [place] [address] [address]- 6181 December, Mild persistent asthma without complication J45.30 [facility] [address] [address]- [address] December, Hypothyroidism (acquired) E03.9 ; Mild persistent asthma without complication J45.30 ; Iron deficiency anemia, unspecified iron deficiency anemia type D50.9 and Elevated brain natriuretic peptide (BNP) level R79.89 [place] [address] [place] [id number] [place] [address] 25171- 0683 December, Elevated brain natriuretic peptide (BNP) level R79.89 and Iron deficiency anemia, unspecified iron deficiency anemia type D50.9 [place] [address] [place] [id number] [place] [address] 68091- 7909 December, Essential tremor G25.0 and Generalized anxiety disorder F41.1 [place] [address] [place] [id number] [place] [address] 13650- 5857 December, Essential hypertension I10 ; Iron deficiency anemia, unspecified iron deficiency anemia type D50.9 ; Leg swelling M79.89 and Hyperlipidemia E78.5 [place] [address] [place] [id number] [place] [address] 79301- 9655 Nov, Essential hypertension I10 ; Hyperlipidemia E78.5 ; Prediabetes R73.09 ; Leg swelling M79.89 ; Iron deficiency anemia, unspecified iron deficiency anemia type D50.9 and Hypothyroidism (acquired) E03.9 [place] [address] [place] [id number] [place] [address] 77554- 3930 Nov, Hypothyroidism (acquired) E03.9 [place] [address] [place] [id number] [place] [address] 08144- 5680 Sep, Hypothyroidism (acquired) E03.9 [place] [address] [place] [id number] [place] [address] 23082- 6585 Sep, Hypothyroidism (acquired) E03.9 [place] [address] [place] [id number] [place] [address] 19905- 9996 Sep, [place] [address] [place] [id number] [place] [address] 61273- 9170 Jul, [place] [address] [place] [address] 33497- 1302 Jul, Hypothyroidism (acquired) E03.9 [place] [address] [place] [id number] [place] [address] 84518- 8717 Jul, Hypothyroidism (acquired) E03.9 [place] [address] [place] [id number] [place] [address] 01877- 1523 Jul, [place] [address] 91552- 0837 Jul, Anemia, unspecified type D64.9 [place] [address] 98447- 9681 Jun, Anemia, unspecified type D64.9 and Hypothyroidism (acquired ) E03.9 [place] [address] [place] [id number] [place] [address] 56770- 4159 Jun, Hypothyroidism (acquired) E03.9 and Anemia, unspecified type D64.9 [place] [address] [place] [id number] [place] [address] 76736- 1661 08 Jun, 2016 Hypothyroidism (acquired) E03.9 and Anemia, unspecified type D64.9 [place] [address] [place] [id number] [place] [address] 26700- 9890 Jun, [place] [address] [place] [id number] [place] [address] 65866- 6104 Jun, Hypothyroidism (acquired) E03.9 ; Essential hypertension I10 ; Prediabetes R73.09 and Hyperlipidemia E78.5 [place] [address] [place] [id number] [place] [address] 23059- 3437 03 Jun, 2016 Hypothyroidism (acquired) E03.9 ; Mild persistent asthma without complication J45.30 ; Prediabetes R73.09 ; Hyperlipidemia E78.5 ; Essential hypertension I10 ; Essential tremor G25.0 ; Generalized anxiety disorder F41.1 and Chronic pansinusitis J32.4 [place] [address] [place] [id number] [place] [address] 35961- 5443 May, Pneumonia due to infectious organism, unspecified laterality , unspecified part of lung J18.9 [facility] [address] [place] [id number] [place] [address] 96349- 2070 May, Encounter for immunization Z23 [facility] [address] [place] [id number] [place] [address] [id number] Mar, Dental examination Z01.20 [facility] [address] [place] [id number] [place] [address] 34312- 9622 Mar, Essential hypertension I10 [facility] [address] 16402- 7433 Feb, Essential hypertension I10 [facility] [address] [place] [id number] [place] [address] 63587- 8585 Feb, Essential hypertension I10 [facility] [address] [place] [id number] [place] [address] 39588- 9346 Feb, [facility] [address] [place] [id number] [place] [address] 07612- 7398 Feb, Hypothyroidism (acquired) E03.9 [facility] [address] [place] [id number] [place] [address] [phone] Jan, Dental examination Z01.20 [facility] [address] [place] [id number] [place] [address] [id number] December, Encounter for dental examination Z01.20 [facility] [address] [place] [id number] [place] [address] 53615- 5196 December, [facility] [address] [place] [address] [phone] December, Encounter for dental examination Z01.20 [facility] [address] [place] [id number] [place] [address] 04818- 7406 Nov, Hypothyroidism (acquired) E03.9 [facility] [address] [place] [id number] [place] [address] [phone] Nov, [facility] [address] [place] [id number] [id number] Nov, Encounter for dental examination Z01.20 [facility] [address] [place] [id number] [place] [address] 10145- 6548 Nov, Hypothyroidism (acquired) E03.9 ; Essential hypertension I10 ; Essential tremor G25.0 ; Generalized anxiety disorder F41.1 ; Mild persistent asthma without complication J45.30 and Chronic pansinusitis J32.4 [place] [address] 80480- 1196 Nov, [place] [address] 25237- 2139 Nov, [place] [address] 17500- 1414 Sep, Cough R05 and Pneumonia of right middle lobe due to infectious organism J18.9 [facility] [address] [place] [id number] [place] [address] [phone] May, Encounter for dental examination Z01.20 [place] [address] 52291- 7546 Apr, Influenza vaccine administered V04.81 [place] [address] 68188- 8152 Apr, Hypocalcemia 275.41 and Unspecified vitamin D deficiency 268.9 [place] [address] [place] [id number] [place] [address] 96387- 1160 16 Apr, 2015 Generalized anxiety disorder 300.02 [place] [address] [place] [id number] [place] [address] 39496- 8406 10 Apr, 2015 Hyperlipidemia 272.4 ; Hypocalcemia 275.41 and Unspecified vitamin D deficiency 268.9 [place] [address] [place] [id number] [place] [address] 46818- 1767 09 Apr, 2015 Unspecified hypothyroidism 244.9 and Essential hypertension , benign 401.1 [place] [address] [address]- 3026 Apr, Unspecified hypothyroidism 244.9 ; Essential hypertension, benign 401.1 ; Chronic rhinosinusitis 473.9 and Hearing loss 389.9 [facility] [address], [place] [address]- 0426 Feb, [facility] [address] [place] [id number] [place] [address] 95774- 4962 Jan, Hypothyroidism 244.9 [facility] [address] [place] [id number] [place] [address] 29883- 7172 Jan, Chronic rhinosinusitis 473.9 and Unspecified hypothyroidism 244.9 [facility] [address] [place] [id number] [place] [address] 51256- 6886 Jan, [facility] [address] [place] [id number] [place] [address] 82982- 7284 December, Generalized anxiety disorder 300.02 [facility] [address] [place] [id number] [place] [address] [phone] December, Dental examination V72.2 [facility] [address] [place] [id number] [place] [address] 250472- 1262 December, Hypothyroidism 244.9 [facility] [address] [place] [address] 09647- 1295 December, Hypothyroidism 244.9 [facility] [address] [place] [id number] [place] [address] 50167- 9094 Nov, [facility] [address] [place] [address] 63211- 7932 Nov, [facility] [address] [place] [id number] [place] [address] 612421- 4113 Oct, [facility] [address] [address] 5391 Oct, [facility] [address] [place] [id number] [place] [address] 801066- 5879 Oct, [facility] [place] [facility] [address] [id number] [place] [address]- 6338 24 Oct, 2014 [facility] [place] [facility] [address] [id number] [place] [address]- 6359 Oct, [facility] [place] [facility] [address] [id number] [place] [address]- 0364 Oct, [facility] [place] [facility] [address] [id number] [place] [address]- 9978 Oct, [facility] [place] [facility] [address] [id number] [place] [address]- 6905 Oct, [facility] [place] [facility] [address] [id number] [place] [address]- 5834 Oct, [facility] [place] [facility] [address] [id number] [place] [address]- 5222 Oct, [facility] [place] [facility] [address] [id number] [place] [address]- 6181 Oct, [facility] [place] [facility] [address] [id number] [place] [address]- 5174 Oct, [facility] [place] [facility] [address] [id number] [place] [address]- 4166 Oct, [facility] [place] [facility] [address] [id number] [place] [address]- 8245 Oct, [facility] [place] [facility] [address] [id number], [place] [address]- 8686 Oct, [facility] [place] [facility] [address] [id number] [place] [address]- 8696 Oct, [facility] [place] [facility] [address] [id number] [place] [address]- 2243 Sep, [facility] [place] [facility] [address] [id number] [place] [address]- 8433 Sep, [facility] [place] [facility] [address] [id number] [place] [address]- 3806 Aug, [facility] [place] [facility] [address] [id number] [place] [address]- 5025 Aug, [facility] [place] [facility] [address] [id number] [place] [address]- 6394 Aug, [facility] [place] [facility] [address] [id number] [place] [address]- 2381 Aug, [facility] [place] [facility] [address] [id number] [place] [address]- 6338 Aug, [facility] [place] [facility] [address] [id number] [place] [address]- 3055 Aug, [facility] [place] [facility] [address] [id number] [place] [address]- 1287 Aug, [facility] [place] [facility] [address] [id number] [place] [address]- 5087 Aug, [facility] [place] [facility] [address] [id number] [place] [address]- 3865 Jun, [facility] [place] [facility] [address] [id number] [place] [address]- 8634 Jun, [facility] [place] [facility] [address] [id number] [place] [address]- 1499 May, [facility] [place] [facility] [address] [id number] [place] [address]- 6356 May, [facility] [place] [facility] [address] [id number], [place] [address]- 6450 May, [facility] [place] [facility] [address] [id number] [place] 1367 May, [facility] [place] [facility] [address] [id number] [place] 8752 May, [facility] [place] [facility] [address] [id number] [place] 3436 May, [facility] [place] [facility] [address] [id number] [place] [address]- 5945 Apr, 2013 [facility] [place] [facility] [address] [id number] [place] [address]- 8423 Apr, [facility] [place] [facility] [address] [id number] [place] [address]- 9819 Apr, [facility] [place] [facility] [address] [id number] [place] [address]- 6230 Apr, [facility] [place] [facility] [address] [id number] [place] [address]- 5894 Apr, [facility] [place] [facility] [address] [id number] [place] [address]- 1925 Apr, [facility] [place] [facility] [address] [id number] [place] [address]- 1399 Apr, [facility] [place] [facility] [address] [id number] [place] [address]- 5677 Apr, [facility] [place] [facility] [address] [id number] [place] [address]- 2821 Mar, [facility] [place] [facility] [address] [id number] [place] [address]- 3622 Mar, [facility] [place] [facility] [address] [id number] [place] [address]- 5565 Mar, [facility] [place] [facility] [address] [id number] [place] [address]- 4007 Mar, [facility] [place] [facility] [address] [id number] [place] [address]- 8046 Mar, [facility] [place] [facility] [address] [id number] [place] [address]- 3209 Mar, [facility] [place] [facility] [address] [id number] [place] [address]- 5184 Mar, [facility] [place] [facility] [address] [id number] [place] [address]- 3746 Mar, [facility] [place] [facility] [address] [id number] [place] [address]- 6978 Feb, [facility] [place] [facility] [address] [id number] [place] 2604 Feb, [facility] [place] [facility] [address] [id number] [place] [address]- 4422 Feb, [facility] [place] [facility] [address] [id number] [place] [address]- 9840 Feb, [facility] [place] [facility] [address] [id number] [place] [address]- 8754 Jan, [facility] [place] [facility] [address] [id number] [place] [address]- 6669 Jan, [facility] [place] [facility] [address] [id number] [place] [address]- 4054 December, [facility] [place] [facility] [address] [id number] [place] [address]- 2502 December, [facility] [place] [facility] [address] [id number] [place] [address]- 7067 Nov, [facility] [place] [facility] [address] [id number] [place] [address]- 7948 Nov, [facility] [place] [facility] [address] [id number] [place] [address]- 4609 Nov, [facility] [place] [facility] [address] [id number] [place] [address]- 8549 Nov, [facility] [place] [facility] [address] [id number] [place] [address]- 6847 Nov, [facility] [place] [facility] [address] [id number] [place] [address]- 0805 Nov, [facility] [place] [facility] [address] [id number] [place] [address]- 9890 Nov, [facility] [place] [facility] [address] [id number] [place] [address]- 6185 Nov, [facility] [place] [facility] [address] [id number] [place] [address]- 5488 Nov, [facility] [place] [facility] [address] [id number] [place] [address]- 2767 Sep, [facility] [place] [facility] [address] [id number] [place] [address]- 7051 Sep, [facility] [place] [facility] [address] [id number] [place] [address]- 8299 Sep, [facility] [place] [facility] [address] [id number] [place] [address]- 5036 Sep, [facility] [place] [facility] [address] [id number] [place] [address]- 0687 Aug, [facility] [place] [facility] [address] [id number] [place] [address]- 8177 Jun, [facility] [place] [facility] [address] [id number] [place] [address]- 4933 Jun, [facility] [place] [facility] [address] [id number] [place] [address]- 0736 May, [facility] [place] [facility] [address] [id number] [place] [address]- 9020 Apr, [facility] [place] [facility] [address] [id number] [place] [address]- 3114 Mar, [facility] [place] [facility] [address] [id number] [place] [address]- 8741 Feb, [facility] [place] [facility] [address] [id number] [place] [address]- 4483 Jan, [facility] [place] [facility] [address] [id number] [place] [address]- 2316 December, [facility] [place] [facility] [address] [id number] [place] [address]- 0324 Nov, [facility] [place] [facility] [address] [id number] [place] [address]- 2037 Oct, [facility] [place] [facility] [address] [id number] [place] [address]- 1140 Oct, [facility] [place] [facility] [address] [id number] [place] [address]- 1928 Oct, [facility] [place] [facility] [address] [id number] [place] [address]- 4275 Sep, [facility] [place] [facility] [address] [id number] [place] [address]- 7410 Sep, [facility] [place] [facility] [address] [id number] [place] [address]- 3027 Aug, [facility] [place] [facility] [address] [id number] [place] [address]- 6048 Aug, [facility] [place] [facility] [address] [id number] [place] [address]- 8571 Aug, [facility] [place] [facility] [address] [id number] [place] [address]- 8283 Aug, [facility] [place] [facility] [address] [facility] [id number] [place] [address]- 8833 Jul, [facility] [place] [facility] [address] [id number], [place] [address]- 7077 Jul, [facility] [place] [facility] [address] [id number], [place] [address]- 5802 May, [facility] [place] [facility] [address] [id number] [place] [address]- 3884 May, [facility] [place] [facility] [address] [facility] [id number] [place] [address]- 9095 May, [facility] [place] [facility] [address] [id number] [place] [address]- 5140 May, [facility] [place] [facility] [address] [id number] [place] [address]- 9816 May, [facility] [address] [id number] [place] [address]- 9946 Apr, [facility] [address] [id number] [place] [address] 2546 Mar, [facility] [address] [id number] [place] [address] Mar, [facility] [address] [id number] [place] [address] Feb, [facility] [address] [id number] [place] [address] December, [facility] [address] [id number] [place] [address] December, [facility] [address] [facility] [id number] [place] [address] December, [facility] [address] [place] [id number] December, [facility] [address] [place], [place] [id number] December, [facility] [address] [facility] [id number][place] [address] December, [facility] [address] [facility] [id number] [id number] December, [facility] [address] [id number], [place] [address] Nov, [facility] [address] [id number] [place] [address] Jul, [facility] [address] [id number] [place] [address] Jul, [facility] [address] [id number] [place] [address] Jun, [facility] [address] [id number], [place] [address] Feb, [facility] [address] [facility] [id number], [place] [address] Jan, [facility] [address] [facility] [id number], [place] [address] May, [facility] [address] [facility] [id number], [place] [address] May, [facility] [address] [facility] [id number], [place] [address] May, IMMUNIZATIONS No Known Immunizations SOCIAL HISTORY Never Assessed REASON FOR VISIT Possible sinus infection. CAMILA Sparrow. PLAN OF CARE VITAL SIGNS Height 68 in 2017-08-18 Weight 314 lbs 2017-08-18 Temperature 97.7 degrees Fahrenheit 2017-08-18 Heart Rate 82 bpm 2017-08-18 Respiratory Rate 18 2017-08-18 BMI 47.74 kg/m2 2017-08-18 Blood pressure systolic 136 mmHg 2017-08-18 Blood pressure diastolic 76 mmHg 2017-08-18 MEDICATIONS Medication Instructions Dosage Frequency Start Date End Date Duration Status Albuterol Sulfate 1.25 MG/3ML Inhalation 4 times a day 3 ml as needed 6h May, Active Symbicort 160-4.5 MCG/ACT INHALE TWO PUFFS BY MOUTH TWICE DAILY Active Proventil HFA 108 (90 Base) MCG/ACT INHALE TWO PUFFS BY MOUTH FOUR TIMES DAILY NEEDED Active Vitamin D-3 1000 UNIT Orally Once a day 1 capsule 24h Active Melatonin 1 MG by oral route Oct, Active Propranolol HCl 40 mg Orally Three times a day 1 tablet 8h 90 days Active Levaquin 500 MG Orally Once a day 1 tablet 24h Jul, Jul, 10 day(s) Active Sertraline HCl 100 mg Orally Once a day 1 tablet 24h 90 days Active Levothyroxine Sodium 175 MCG Orally Once a day 1 tablet 24h 90 days Active Potassium Chloride [facility] 10 MEQ TAKE ONE TABLET BY MOUTH ONCE DAILY 30 Not-Taking Flonase 50 MCG/ACT Nasally Once a day 1 spray in each nostril 24h Jan, Active RESULTS No Results PROCEDURES No Known [...]
--- OUTSIDE RECORDS SUMMARY | 2018-03-23 15:56 | XMS REPORT ---
Author TERRI Caballero [facility] eClinicalWorks Address Unknown Phone Unavailable Care Team Providers Care Polytechnic Registrar Name Role Phone TERRI WILKERSON CP Unavailable Allergies, Adverse Reactions, Alerts Substance Reaction Event Type Hydrochlorothiazide Info Not Available Drug Allergy Amoxicillin Info Not Available Drug Allergy Nuts Info [...] Problem Vitamin D deficiency E55.9 Active Assessment Pneumonia due to infectious organism, unspecified laterality, unspecified part of lung J18.9 Active Problem Prediabetes R73.09 Active Problem Encounter for dental examination Z01.20 Active Problem Bilateral sensorineural hearing loss H90.3 Active Medications Medication Code System Code Instructions Start Date End Date Status Dosage Levaquin [facility] [address]-58 500 MG Orally Once a day Jun 22, 2016 Jun 29, 2016 1 tablet Albuterol Sulfate [facility] [address]-59 1.25 MG/3ML Inhalation 4 times a day Jun 22, 2016 3 ml as needed Levothyroxine Sodium [facility] [address]-27 150 MCG Orally Once a day December 27, 2015 1 tablet PredniSONE [facility] [address]-64 20 mg Orally Once a day Jun 22, 2016 Jun 27, 2016 2 tablets Proventil HFA [facility] 51800632875 108 (90 Base) MCG/ACT INHALE TWO PUFFS BY MOUTH FOUR TIMES DAILY NEEDED Alavert [facility] [address]-69 10 mg December 22, 2013 take [address] on top of the tongue to dissolve, then swallow by Oral route 1 time per day Vitamin D-3 [facility] 68956-44770 1000 UNIT Orally Once a day 1 capsule Propranolol HCl [facility] 89724369456 40 MG TAKE ONE TABLET BY MOUTH THREE TIMES DAILY Sertraline HCl [facility] 96243888494 100 MG TAKE ONE TABLET BY MOUTH DAILY Symbicort [facility] 53586372490 160-4.5 MCG/ACT INHALE TWO PUFFS BY MOUTH TWICE DAILY Flonase [facility] [address]-22 50 MCG/ACT Nasally Once a day January 31, 2015 1 spray in each nostril Melatonin [facility] [address]-58 1 MG Sublingual November 15, 2014 by oral route Procedures Procedure Coding System Code Date Office Visit, Est Pt., Level 3 CPT-4 69841 Jun 22, 2016 CHEST X-RAY CPT-4 63913 Jun 22, 2016 MEASURE BLOOD OXYGEN LEVEL CPT-4 81964 Jun 22, 2016 THER/PROPH/DIAG INJ, SC/IM CPT-4 01627 Jun 22, 2016 SOLUMEDROL (UP TO 125 MG) CPT-4 J2930 Jun 22, 2016 Vital Signs Date/Time: Jun 22, 2016 Cardiac Monitoring Heart Rate 70 bpm Weight 302.5 lbs Height 68 in BMI 45.99 Index Oximetry 96 % Blood Pressure Diastolic 78 mmHg Blood Pressure Systolic 150 mmHg Results No Known Results Summary Purpose eClinicalWorks Submission
--- OUTSIDE RECORDS SUMMARY | 2018-03-23 15:56 | XMS REPORT ---
Author Author JUAN JOSE HELLER eClinicalWorks Address Unknown Phone Unavailable Care Team Providers Care Leak Gang Supervisor Name Role Phone JUAN JOSE HELLER Unavailable Allergies No Known Allergies Problems Problem Type Condition Code Onset Dates Condition Status Problem Hyperlipidemia E78.5 Active Problem Mild persistent asthma without complication J45.30 Active Problem Chronic pansinusitis J32.4 Active Problem Bilateral sensorineural hearing loss H90.3 Active Problem Essential hypertension I10 Active Problem Essential tremor G25.0 Active Problem Hypothyroidism (acquired) E03.9 Active Problem Generalized anxiety disorder F41.1 Active Problem Palpitations R00.2 Active Problem Shortness of breath R06.02 Active Problem Vitamin D deficiency E55.9 Active Medications Medication Code System Code Instructions Start Date End Date Status Dosage Levothyroxine Sodium [facility] [address]-34 137 MCG Orally Once a day 1 capsule Results No Known Results Summary Purpose eClinicalWorks Submission
--- OUTSIDE RECORDS SUMMARY | 2018-03-23 15:56 | XMS REPORT ---
Author Author JUAN JOSE HELLER eClinicalWorks Address Unknown Phone Unavailable Care Team Providers Care Tool Setter Apprentice Name Role Phone JUAN JOSE HELLER CP [...] Problem Vitamin D deficiency E55.9 Active Assessment Hyperlipidemia E78.5 Active Assessment Hypothyroidism (acquired) E03.9 Active Problem Prediabetes R73.09 Active Assessment Prediabetes R73.09 Active Problem Encounter for dental examination Z01.20 Active Assessment Essential hypertension I10 Active Problem Bilateral sensorineural hearing loss H90.3 Active Medications No Known Medications Procedures Procedure Coding System Code Date COMPLETE CBC W/AUTO DIFF WBC CPT-4 87093 Jul 06, 2016 LIPID PANEL CPT-4 12245 Jul 06, 2016 ASSAY THYROID STIM HORMONE CPT-4 22646 Jul 06, 2016 VENIPUNCT, ROUTINE* CPT-4 86403 Jul 06, 2016 COMPREHEN METABOLIC PANEL CPT-4 46857 Jul 06, 2016 Results Name Result Date Reference Range Unit Abnormality Flag ROUTINE VENIPUNCTURE Summary Purpose eClinicalWorks Submission
--- OUTSIDE RECORDS SUMMARY | 2018-03-23 15:56 | XMS REPORT ---
Author Author JUAN JOSE HELLER Organization [facility] Address [address] [place] [address] Care Team Providers Care Certified Dialysis Technician Name Role Phone JUAN JOSE HELLER Unavailable PROBLEMS Type Condition ICD9-CM Code PLJ20-ON Code Onset Dates Condition Status SNOMED Code Problem Chronic pansinusitis J32.4 Active 50140236 Problem Palpitations R00.2 Active 69131475 Problem Mild persistent asthma without complication J45.30 Active 737018665 Problem Prediabetes R73.09 Active 165373207 Problem Encounter for dental examination Z01.20 Active 592399705 Problem Bilateral sensorineural hearing loss H90.3 Active 373576802 Problem Hyperlipidemia E78.5 Active 96913052 Problem Hypothyroidism (acquired) E03.9 Active 364729798 Problem Essential hypertension I10 Active 94810317 Problem Vitamin D deficiency E55.9 Active 77502135 Problem Generalized anxiety disorder F41.1 Active 241152517 Problem Essential tremor G25.0 Active 19704592 Problem Shortness of breath R06.02 Active 165632628 ALLERGIES Unknown Allergies SOCIAL HISTORY No smoking Hx information available PLAN OF CARE VITAL SIGNS MEDICATIONS Unknown Medications RESULTS No Results PROCEDURES No Known procedures IMMUNIZATIONS No Known Immunizations
--- OUTSIDE RECORDS SUMMARY | 2018-03-23 15:57 | XMS REPORT ---
Author Author PINA JUAN JOSE Organization [facility] Address [address] [place] [address] Care Team Providers Care Saw Man Name Role Phone JUAN JOSE HELLER Unavailable PROBLEMS Type Condition ICD9-CM Code SCF52-DK Code Onset Dates Condition Status SNOMED Code Problem Hypothyroidism (acquired) E03.9 Active 874880190 Problem Palpitations R00.2 Active 28413291 Problem Shortness of breath R06.02 Active 081920176 Problem BMI 45.0-49.9, adult Z68.42 Active 806516452 Problem Iron deficiency anemia, unspecified iron deficiency anemia type D50.9 Active 54105375 Problem Essential tremor G25.0 Active 62416391 Problem Chronic pansinusitis J32.4 Active 68665399 Problem Bilateral sensorineural hearing loss H90.3 Active 798639890 Problem Generalized anxiety disorder F41.1 Active 337020644 Problem Mild persistent asthma without complication J45.30 Active 295685147 Problem Essential hypertension I10 Active 00592548 Problem Hyperlipidemia E78.5 Active 03002915 Problem Prediabetes R73.09 Active 249941688 Problem Vitamin D deficiency E55.9 Active [id number] ALLERGIES No Information ENCOUNTERS Encounter Location Date Diagnosis [facility] [id number] [place] [address] 33302- 1658 Nov, [facility] [id number] [place] [address] 72372- 7674 Nov, Acute recurrent pansinusitis J01.41 ; Intractable vomiting without nausea, unspecified vomiting type R11.11 ; Mild persistent asthma without complication J45.30 and BMI 45.0-49.9, adult Z68.42 [facility] [address] [id number] [address] Jul, Acute non-recurrent maxillary sinusitis J01.00 [facility] [id number] [place] [address] 34106- 3955 07 Jun, 2017 Other hypervolemia E87.79 ; Pulmonary hypertension I27.20 ; Hypothyroidism (acquired) E03.9 ; Vitamin D deficiency E55.9 ; Prediabetes R73.09 ; Iron deficiency anemia, unspecified iron deficiency anemia type D50.9 ; Essential tremor G25.0 ; Generalized anxiety disorder F41.1 ; Mild persistent asthma without complication J45.30 ; Hyperlipidemia E78.5 and BMI 45.0-49.9, adult Z68.42 [facility] [address] [id number] May, Dental examination Z01.20 [place] [address] [address]78- [address]305 May, [place] [address] 60759- 2698 May, [place] [address] 94034- 4494 Apr, Encounter for immunization Z23 [place] [address] 79495- 7190 Feb, Generalized anxiety disorder F41.1 [place] [address] 65631- 4010 Feb, Hypothyroidism (acquired) E03.9 and Iron deficiency anemia, unspecified iron deficiency anemia type D50.9 [place] [id number] [place] [address] 44329- 5538 Jan, Encounter for immunization Z23 [place] [address] 14439- 9280 December, Mild persistent asthma without complication J45.30 [place] [address] 42516- 5022 December, Hypothyroidism (acquired) E03.9 ; Mild persistent asthma without complication J45.30 ; Iron deficiency anemia, unspecified iron deficiency anemia type D50.9 and Elevated brain natriuretic peptide (BNP) level R79.89 [place] [id number] [place] [address] 32593- 0168 December, Elevated brain natriuretic peptide (BNP) level R79.89 and Iron deficiency anemia, unspecified iron deficiency anemia type D50.9 [place] [id number] [place] [address] 93238- 4543 December, Essential tremor G25.0 and Generalized anxiety disorder F41.1 [place] [address] 80936- 6693 December, Essential hypertension I10 ; Iron deficiency anemia, unspecified iron deficiency anemia type D50.9 ; Leg swelling M79.89 and Hyperlipidemia E78.5 [place] [id number] [place] [address] 97748- 2261 Nov, Essential hypertension I10 ; Hyperlipidemia E78.5 ; Prediabetes R73.09 ; Leg swelling M79.89 ; Iron deficiency anemia, unspecified iron deficiency anemia type D50.9 and Hypothyroidism (acquired) E03.9 [place] [address] 39003- 4007 Nov, Hypothyroidism (acquired) E03.9 [place] [id number] [place] [address] 46855- 7683 Sep, Hypothyroidism (acquired) E03.9 [place] [id number] [place] [address] 09818- 1490 Sep, Hypothyroidism (acquired) E03.9 [facility] [id number] [place] [address] 79761- 1432 Sep, [place] [id number] [place] [address] 08400- 4490 Jul, [place] [id number] [place] [address] 49172- 7459 Jul, Hypothyroidism (acquired) E03.9 [place] [id number] [place] [address] 29755- 5353 Jul, Hypothyroidism (acquired) E03.9 [place] [address] 90330- 3241 Jul, [place] [address] 51206- 6686 Jul, Anemia, unspecified type D64.9 [place] [address] 71662- 3305 Jun, Anemia, unspecified type D64.9 and Hypothyroidism (acquired ) E03.9 [place] [address] 47538- 7621 Jun, Hypothyroidism (acquired) E03.9 and Anemia, unspecified type D64.9 [place] [address] 95125- 6519 Jun, Hypothyroidism (acquired) E03.9 and Anemia, unspecified type D64.9 [place] [address] 49741- 9665 Jun, [place] [address] 32629- 0855 Jun, Hypothyroidism (acquired) E03.9 ; Essential hypertension I10 ; Prediabetes R73.09 and Hyperlipidemia E78.5 [place] [address] 39050- 1029 Jun, Hypothyroidism (acquired) E03.9 ; Mild persistent asthma without complication J45.30 ; Prediabetes R73.09 ; Hyperlipidemia E78.5 ; Essential hypertension I10 ; Essential tremor G25.0 ; Generalized anxiety disorder F41.1 and Chronic pansinusitis J32.4 [place] [id number] [place] [address] 28996- 6105 24 May, 2016 Pneumonia due to infectious organism, unspecified laterality , unspecified part of lung J18.9 [place] [address] [id number] [address] May, Encounter for immunization Z23 [facility] [id number] [place] [address] [id number] Mar, Dental examination Z01.20 [facility] [address] [id number] [address] Mar, Essential hypertension I10 [facility] [address] [id number] [place] [address] 941746- 4316 Feb, Essential hypertension I10 [facility] [address] [id number] [place] [address] 856413- 3876 Feb, Essential hypertension I10 [facility] [address] [facility] [id number] [place] [address] 90402- 4386 Feb, [facility] [id number] [place] [address] 52292- 2744 Feb, Hypothyroidism (acquired) E03.9 [facility] [address] [id number] [place] [address] [id number] Jan, Dental examination Z01.20 [facility] [address] [id number] [place] [address] [id number] December, Encounter for dental examination Z01.20 [facility] [address] [id number] [address] 2546 December, [facility] [address] [id number] [place] [address] [id number] December, Encounter for dental examination Z01.20 [facility] [address] [id number] [address] 2546 Nov, Hypothyroidism (acquired) E03.9 [facility] [address] [id number] [id number] Nov, [facility] [address] [id number] [id number] Nov, Encounter for dental examination Z01.20 [facility] [address] [place] [address] 12701- 8049 Nov, Hypothyroidism (acquired) E03.9 ; Essential hypertension I10 ; Essential tremor G25.0 ; Generalized anxiety disorder F41.1 ; Mild persistent asthma without complication J45.30 and Chronic pansinusitis J32.4 [facility] [id number] [place] [address] 11077- 1486 Nov, [facility] [address] 58765- 0017 Nov, [facility] [address] 68495- 8913 Sep, Cough R05 and Pneumonia of right middle lobe due to infectious organism J18.9 [facility] [address] [id number] May, Encounter for dental examination Z01.20 [facility] [address] 02814- 6212 Apr, Influenza vaccine administered V04.81 [place] [address] 21916- 6050 Apr, Hypocalcemia 275.41 and Unspecified vitamin D deficiency 268.9 [place] [id number] [place] [address] 09974- 0359 16 Apr, 2015 Generalized anxiety disorder 300.02 [facility] [address] 71938- 6658 10 Apr, 2015 Hyperlipidemia 272.4 ; Hypocalcemia 275.41 and Unspecified vitamin D deficiency 268.9 [place] [address] 14395- 9995 09 Apr, 2015 Unspecified hypothyroidism 244.9 and Essential hypertension , benign 401.1 [place] [id number] [place] [address] 36524- 9991 Apr, Unspecified hypothyroidism 244.9 ; Essential hypertension, benign 401.1 ; Chronic rhinosinusitis 473.9 and Hearing loss 389.9 [facility] [address] [address]- 3[address] Feb, [facility] [address] [place] [address] 18078- 4314 Jan, Hypothyroidism 244.9 [facility] [id number] [place] [address] 02193- 4174 Jan, Chronic rhinosinusitis 473.9 and Unspecified hypothyroidism 244.9 [facility] [id number] [place] [address] 33725- 7345 Jan, [facility] [id number] [place] [address] 00949- 8821 December, Generalized anxiety disorder 300.02 [facility] [id number] [place] [address] [id number] December, Dental examination V72.2 [facility] [id number] [place] [address] 97013- 7538 December, Hypothyroidism 244.9 [facility] [id number] [place] [address] 58434- 0909 December, Hypothyroidism 244.9 [facility] [id number] [place] [address] 84830- 8707 Nov, [facility] [address] [place] [address] 98008- 6182 Nov, [facility] [address] [place] [address] 70681- 9257 Oct, [facility] [id number] [place] [address] 34269- 4831 Oct, [facility] [id number] [place] [address] 67585- 1300 Oct, [facility] [address] [place] [address] 89707- 2431 Oct, [facility] [place] [facility] [address] [id number] [place] [address]- 8006 20 Oct, 2014 [facility] [place] [facility] [address] [id number] [place] [address]- 3142 20 Oct, 2014 [facility] [place] [facility] [address] [id number] [place] [address]- 6526 Oct, [facility] [place] [facility] [address] [id number] [place] [address]- 2376 Oct, [facility] [place] [facility] [address] [id number] [place] [address]- 7889 Oct, [facility] [place] [facility] [address] [id number] [place] [address]- 4876 Oct, [facility] [place] [facility] [address] [id number] [place] [address]- 9743 Oct, [facility] [place] [facility] [address] [id number] [place] [address]- 8439 18 Oct, 2014 [facility] [place] [facility] [address] [id number] [place] [address]- 1055 Oct, [facility] [place] [facility] [address] [id number] [place] [address]- 5395 Oct, [facility] [place] [facility] [address] [id number] [place] [address]- 1350 Oct, [facility] [place] [facility] [address] [id number] [place] [address]- 7010 Oct, [facility] [place] [facility] [address] [id number] [place] [address]- 6612 Sep, [facility] [place] [facility] [address] [id number] [place] [address]- 2553 Sep, [facility] [place] [facility] [address] [id number] [place] [address]- 2013 Aug, [facility] [place] [facility] [address] [id number], [place] [address]- 4736 Aug, [facility] [place] [facility] [address] [id number] [place] [address]- 1667 Aug, [facility] [place] [facility] [address] [id number] [place] [address]- 2717 Aug, [facility] [place] [facility] [address] [id number] [place] [address]- 9597 Aug, [facility] [place] [facility] [address] [id number] [place] [address]- 2674 Aug, [facility] [place] [facility] [address] [id number] [place] [address]- 4039 Aug, [facility] [place] [facility] [address] [id number] [place] [address]- 2597 Aug, [facility] [place] [facility] [address] [id number] [place] [address]- 1823 Jun, [facility] [place] [facility] [address] [id number] [place] [address]- 2584 Jun, [facility] [place] [facility] [address] [id number], [place] [address]- 9047 May, [facility] [place] [facility] [address] [id number] [place] [address]- 2333 May, [facility] [place] [facility] [address] [id number], [place] [address]- 2636 May, [facility] [place] [facility] [address] [id number], [place] [address]- 8748 May, [facility] [place] [facility] [address] [id number] [place] [address]- 7802 May, [facility] [place] [facility] [address] [id number], [place] [address]- 3721 May, [facility] [place] [facility] [address] [id number] [place] [address]- 4795 Apr, [facility] [place] [facility] [address] [id number] [place] [address]- 2690 24 Apr, 2013 [facility] [place] [facility] [address] [id number] [place] [address]- 2926 17 Apr, 2013 [facility] [place] [facility] [address] [id number] [place] [address]- 6166 17 Apr, 2013 [facility] [place] [facility] [address] [id number] [place] [address]- 6036 Apr, 2013 [facility] [place] [facility] [address] [id number] [place] [address]- 0303 Apr, 2013 [facility] [place] [facility] [address] [id number] [place] [address]- 4998 Apr, [facility] [place] [facility] [address] [id number] [place] [address]- 2878 Apr, [facility] [place] [facility] [address] [id number] [place] [address]- 8762 Mar, [facility] [place] [facility] [address] [id number] [place] [address]- 3053 Mar, [facility] [place] [facility] [address] [id number] [place] [address]- 4150 Mar, [facility] [place] [facility] [address] [id number] [place] [address]- 9107 Mar, [facility] [place] [facility] [address] [id number] [place] [address]- 7662 Mar, [facility] [place] [facility] [address] [id number] [place] [address]- 1947 Mar, [facility] [place] [facility] [address] [id number] [place] [address]- 0086 Mar, [facility] [place] [facility] [address] [id number] [place] [address]- 1425 Mar, [facility] [place] [facility] [address] [id number] [place] [address]- 5122 Feb, [facility] [place] [facility] [address] [id number] [place] [address]- 1559 Feb, [facility] [place] [facility] [address] [id number] [place] [address]- 1255 Feb, [facility] [place] [facility] [address] [id number] [place] [address]- 1122 Feb, [facility] [place] [facility] [address] [id number] [place] [address]- 2491 Jan, [facility] [place] [facility] [address] [id number] [place] [address]- 8845 Jan, [facility] [place] [facility] [address] [id number] [place] [address]- 0356 December, [facility] [place] [facility] [address] [id number] [place] [address]- 1307 December, [facility] [place] [facility] [address] [id number] [place] [address]- 2788 Nov, [facility] [place] [facility] [address] [id number] [place] [address]- 3738 Nov, [facility] [place] [facility] [address] [id number] [place] [address]- 8916 Nov, [facility] [place] [facility] [address] [id number] [place] [address]- 4783 Nov, [facility] [place] [facility] [address] [id number] [place] [address]- 0786 Nov, [facility] [place] [facility] [address] [id number] [place] [address]- 1800 Nov, [facility] [place] [facility] [address] [id number] [place] [address]- 9700 Nov, [facility] [place] [facility] [address] [id number] [place] [address]- 6447 Nov, [facility] [place] [facility] [address] [id number] [place] [address]- 4855 Nov, [facility] [place] [facility] [address] [id number] [place] [address]- 9397 Sep, [facility] [place] [facility] [address] [id number] [place] [address]- 1509 Sep, [facility] [place] [facility] [address] [id number] [place] [address]- 1410 Sep, [facility] [place] [facility] [address] [id number] [place] [address]- 4369 Sep, [facility] [place] [facility] [address] [id number] [place] [address]- 9645 Aug, [facility] [place] [facility] [address] [id number] [place] [address]- 2104 Jun, [facility] [place] [facility] [address] [id number] [place] [address]- 7190 Jun, [facility] [place] [facility] [address] [id number] [place] [address]- 7665 May, [facility] [place] [facility] [address] [id number] [place] [address]- 0453 Apr, [facility] [place] [facility] [address] [id number] [place] [address]- 1107 Mar, [facility] [place] [facility] [address] [id number] [place] [address]- 6225 Feb, [facility] [place] [facility] [address] [id number] [place] [address]- 1335 Jan, [facility] [place] [facility] [address] [id number] [place] [address]- 2996 December, [facility] [place] [facility] [address] [id number] [place] [address]- 6840 Nov, [facility] [place] [facility] [address] [id number] [place] [address]- 5936 Oct, [facility] [place] [facility] [address] [id number] [place] [address]- 4567 Oct, [facility] [place] [facility] [address] [id number] [place] [address]- 9904 Oct, [facility] [place] [facility] [address] [id number] [place] [address]- 9078 18 Sep, 2012 [facility] [place] [facility] [address] [id number] [place] [address]- 6532 Sep, [facility] [place] [facility] [address] [id number] [place] [address]- 4320 Aug, [facility] [place] [facility] [address] [id number] [place] [address]- 2938 Aug, [facility] [place] [facility] [address] [id number] [place] [address]- 9268 Aug, [facility] [place] [facility] [address] [id number], [place] [address]- 7567 Aug, [facility] [place] [facility] [address] [facility] [id number] [place] [address]- 9850 Jul, [facility] [place] [facility] [address] [facility] [id number], [place] [address]- 2111 Jul, [facility] [place] [facility] [address] [facility] [id number], [place] [address]- 7699 May, [facility] [place] [facility] [address] [id number], [place] [address]- 2222 May, [facility] [place] [facility] [address] [id number] [place] [address]- 7584 May, [facility] [place] [facility] [address] [id number], [place] [address]- 2030 May, [facility] [place] [facility] [address] [facility] [id number] 7660 May, [facility] [place] [facility] [address] [id number], [place] [address]- 6676 Apr, [facility] [address] [id number] [place] [address]- 7086 Mar, [facility] [address] [id number] [place] [address]- 4446 Mar, [facility] [address] [id number] [place] [address] 2546 Feb, [facility] [address] [id number] [place] [address] 2546 December, [facility] [address] [id number] [place] [address] 2546 December, [facility] [address] [id number] [place] [address]- 2546 December, [facility] [address] [place] [id number] December, [facility] [address] [place] [id number] December, [facility] [address] [id number] [place] [address]- 2546 December, [facility] [address] [id number] [id number] December, [facility] [address] [id number] [place] [address] 2546 Nov, [facility] [address] [id number] [place] [address] Jul, [facility] [address] [id number] [place] [address] Jul, [facility] [address] [id number] [place] [address] Jun, [facility] [address] [id number] [place] [address] Feb, [facility] [address] [id number] [place] [address] Jan, [facility] [address] [facility] [id number] [place] [address] May, [facility] [address] [facility] [id number] [address] May, [facility] [address] [facility] [id number] [place] [address] May, IMMUNIZATIONS No Known Immunizations SOCIAL HISTORY Never Assessed REASON FOR VISIT Refill request PLAN OF CARE VITAL SIGNS MEDICATIONS Unknown [...]
--- OUTSIDE RECORDS SUMMARY | 2018-03-23 15:57 | XMS REPORT ---
Author Author JASMEET FERNANDEZ eClinical[employer] Address Unknown Phone Unavailable Care Team Providers Care Cognos Architect Name Role Phone JASMEET FERNANDEZ CP Unavailable Allergies No Known Allergies Problems Problem Type Condition ICD-9 Code Onset Dates Condition Status Assessment Dental examination V72.2 Active Problem Essential hypertension, benign 401.1 Active Problem Essential and other specified forms of tremor 333.1 Active Problem Unspecified hypothyroidism 244.9 Active Problem Generalized anxiety disorder 300.02 Active Problem Palpitations 785.1 Active Problem Shortness of breath 786.05 Active Problem Unspecified vitamin D deficiency 268.9 Active Medications No Known Medications Procedures Procedure Coding System Code Date Billing Notes on claim CPT-4 EC109 January 15, 2015 Results No Known Results Summary Purpose eClinicalWorks Submission
--- OUTSIDE RECORDS SUMMARY | 2018-03-23 15:57 | XMS REPORT ---
Author Author JUAN JOSE HELLER e[employer] Address Unknown Phone Unavailable Care Team Providers Care Feather Washer Name Role Phone JUAN JOSE HELLER CP [...] Procedure Coding System Code Date ASSAY OF FREE THYROXINE CPT-4 57975 March 06, 2016 VENIPUNCT, ROUTINE* CPT-4 08130 March 06, 2016 ASSAY THYROID STIM HORMONE CPT-4 44749 March 06, 2016 Results No Known Results Summary Purpose eClinicalWorks Submission
--- OUTSIDE RECORDS SUMMARY | 2018-03-23 15:58 | XMS REPORT ---
Author Author NIDHI COLBY [facility] eClinicalWorks Address Unknown Phone Unavailable Care Team Providers Care Tube Operator Name Role Phone NIDHI COLBY CP Unavailable Allergies No Known Allergies Problems Problem Type Condition ICD-9 Code Onset Dates Condition Status Problem Palpitations 785.1 Active Problem Unspecified vitamin D deficiency 268.9 Active Problem Generalized anxiety disorder 300.02 Active Assessment Generalized anxiety disorder 300.02 Active Problem Asthma, moderate 493.90 Active Problem Chronic rhinosinusitis 473.9 Active Problem Hyperlipidemia 272.4 Active Problem Essential and other specified forms of tremor 333.1 Active Problem Shortness of breath 786.05 Active Problem Unspecified hypothyroidism 244.9 Active Problem Essential hypertension, benign 401.1 Active Medications No Known Medications Procedures Procedure Coding System Code Date Psychotherapy, patient &/family, 45 minutes, established patient CPT-4 52332 May 15, 2015 Results No Known Results Summary Purpose eClinicalWorks Submission
--- OUTSIDE RECORDS SUMMARY | 2018-03-23 15:58 | XMS REPORT ---
Author Author MILI KNOX [facility] eClinicalWorks Address Unknown Phone Unavailable Care Team Providers Care Cra Name Role Phone MILI KNOX CP Unavailable [...] Active Assessment Dental examination Z01.20 Active Problem Encounter for dental examination Z01.20 Active Problem Bilateral sensorineural hearing loss H90.3 Active Medications No Known Medications Procedures Procedure Coding System Code Date Billing Notes on claim CPT-4 EC109 January 30, 2016 Results No Known Results Summary Purpose eClinicalWorks Submission
--- OUTSIDE RECORDS SUMMARY | 2018-03-23 15:58 | XMS REPORT ---
Author Author JUAN JOSE HELLER e[employer] Address Unknown Phone Unavailable Care Team Providers Care Piping Supervisor Name Role Phone JUAN JOSE HELLER [...] Dosage Levothyroxine Sodium [facility] [address]-76 137 MCG Orally Once a day 1 capsule Results No Known Results Summary Purpose eClinicalWorks Submission
--- OUTSIDE RECORDS SUMMARY | 2018-03-23 15:58 | XMS REPORT ---
Author Author JUAN JOSE HELLER e[employer] Address Unknown Phone Unavailable Care Team Providers Care [facility] Coordinator Name Role Phone JUAN JOSE HELLER CP Unavailable Allergies, Adverse Reactions, Alerts Substance Reaction Event Type Hydrochlorothiazide Info Not Available Drug Allergy Nuts Info Not Available Non Drug Allergy Seasonal Info Not Available Non Drug Allergy Problems Problem Type Condition ICD-9 Code Onset Dates Condition Status Assessment Unspecified hypothyroidism 244.9 Active Problem Generalized anxiety disorder 300.02 Active Problem Palpitations 785.1 Active Problem Chronic rhinosinusitis 473.9 Active Problem Unspecified hypothyroidism 244.9 Active Problem Asthma, moderate 493.90 Active Problem Shortness of breath 786.05 Active Problem Unspecified vitamin D deficiency 268.9 Active Problem Essential hypertension, benign 401.1 Active Problem Essential and other specified forms of tremor 333.1 Active Assessment Hearing loss 389.9 Active Assessment Chronic rhinosinusitis 473.9 Active Assessment Essential hypertension, benign 401.1 Active Medications Medication Code System Code Instructions Start Date End Date Status Dosage Propranolol HCl [facility] [address]-90 40 MG Orally Three times a day 1 tablet Levothyroxine Sodium [facility] [address]-39 137 MCG Orally Once a day January 01, [address] [facility] [address]-29 50 MCG/ACT Nasally Once a day January 31, 2015 1 spray in each nostril Symbicort [facility] [address]-85 160-4.5 MCG/ACT Inhalation Twice a day [address] [facility] [address]-80 1 MG Sublingual November 15, 2014 by oral route Sertraline HCl [facility] 08224701091 100 MG TAKE ONE TABLET BY MOUTH DAILY Proventil HFA [facility] [address]-30 108 (90 Base) MCG/ACT Inhalation every 6 hrs 2 puffs as needed Alavert [facility] [address]-73 10 mg December 22, 2013 take [address] on top of the tongue to dissolve, then swallow by Oral route 1 time per day Potassium Chloride [facility] [address]-20 10 mEq December 22, 2013 10 mEq by Oral route 1 time per day Procedures Procedure Coding System Code Date Office Visit, Est Pt., Level 3 CPT-4 09787 Apr 30, 2015 Vital Signs Date/Time: Apr 30, 2015 Temperature 98.3 F Weight 292.0 lbs Height 68 in BMI 44.39 Index Blood Pressure Diastolic 76 mmHg Blood Pressure Systolic 126 mmHg Cardiac Monitoring Heart Rate 82 bpm Results No Known Results Summary Purpose eClinicalWorks Submission
--- OUTSIDE RECORDS SUMMARY | 2018-03-23 15:58 | XMS REPORT ---
Author Author JUAN JOSE HELLER [facility] eClinicalWorks Address Unknown Phone Unavailable Care Team Providers Care Performance Architect Name Role Phone JUAN JOSE HELLER CP [...] Active Assessment Essential hypertension I10 Active Problem Encounter for dental examination Z01.20 Active Problem Bilateral sensorineural hearing loss H90.3 Active Medications No Known Medications Results No Known Results Summary Purpose eClinicalWorks Submission
--- OUTSIDE RECORDS SUMMARY | 2018-03-23 15:58 | XMS REPORT ---
Author Author RIVERA WAKEFIELD Organization eClinicalWorks Address Unknown Phone Unavailable Care Team Providers Care Platform Material Handling Supervisor Name Role Phone RIVERA WAKEFIELD CP Unavailable Allergies, Adverse Reactions, Alerts Substance [...] Bilateral sensorineural hearing loss 389.18 Active Assessment Encounter for dental examination Z01.20 Active Problem Palpitations 785.1 Active Problem Generalized anxiety disorder 300.02 Active Medications Medication Code System Code Instructions Start Date End Date Status Dosage Levothyroxine Sodium [facility] [address]-63 137 MCG Orally Once a day January 01, 2015 1 capsule Propranolol HCl [facility] [address]-28 40 MG Orally Three times a day 1 tablet Sertraline HCl [facility] 81786125493 100 MG TAKE ONE TABLET BY MOUTH DAILY Procedures Procedure Coding System Code Date PROPHYLAXIS - ADULT CPT-4 D1110 Jun 18, 2015 TOPICAL FLUORIDE VARNISH CPT-4 D1206 Jun 18, 2015 COMP ORAL EVALUATION - NEW/EST PT CPT-4 D0150 Jun 18, 2015 Vital Signs Date/Time: Jun 18, 2015 Blood Pressure Diastolic 87 mmHg Blood Pressure Systolic 133 mmHg Height 68 in Results No Known Results Summary Purpose eClinicalWorks Submission
--- OUTSIDE RECORDS SUMMARY | 2018-03-23 15:58 | XMS REPORT ---
Author Author PINA JUAN JOSE [facility] Address [address] [place] [address] Care Team Providers Care Tanker Serviceman Name Role Phone JUAN JOSE HELLER Unavailable PROBLEMS Type Condition ICD9-CM Code IPQ76-HU Code Onset Dates Condition Status SNOMED Code Problem Hypothyroidism (acquired) E03.9 Active 924834344 Problem Palpitations R00.2 Active 55464562 Problem Shortness of breath R06.02 Active 579593966 Problem BMI 45.0-49.9, adult Z68.42 Active 617663786 Problem Iron deficiency anemia, unspecified iron deficiency anemia type D50.9 Active 03196140 Problem Essential tremor G25.0 Active 89400158 Problem Chronic pansinusitis J32.4 Active 54166076 Problem Bilateral sensorineural hearing loss H90.3 Active 907599246 Problem Generalized anxiety disorder F41.1 Active 007997498 Problem Mild persistent asthma without complication J45.30 Active 179762070 Problem Essential hypertension I10 Active 42714872 Problem Hyperlipidemia E78.5 Active 69298926 Problem Prediabetes R73.09 Active 576005013 Problem Vitamin D deficiency E55.9 Active [id number] ALLERGIES No Information ENCOUNTERS Encounter Location Date Diagnosis [facility] [id number] [address] Jul, Acute non-recurrent maxillary sinusitis J01.00 [facility] [id number] [place] [address] 53191- 7936 Jun, Other hypervolemia E87.79 ; Pulmonary hypertension I27.20 ; Hypothyroidism (acquired) E03.9 ; Vitamin D deficiency E55.9 ; Prediabetes R73.09 ; Iron deficiency anemia, unspecified iron deficiency anemia type D50.9 ; Essential tremor G25.0 ; Generalized anxiety disorder F41.1 ; Mild persistent asthma without complication J45.30 ; Hyperlipidemia E78.5 and BMI 45.0-49.9, adult Z68.42 [facility] [id number] [id number] May, Dental examination Z01.20 [facility] [id number] [place] [address] 36138- 8014 May, [place] [id number] [place] [address] 56543- 5854 May, [place] [id number] [place] [address] 88097- 4052 Apr, Encounter for immunization Z23 [facility] [id number] [place] [address] 70281- 3826 Feb, Generalized anxiety disorder F41.1 [id number] [place] [address] 82538- 6938 Feb, Hypothyroidism (acquired) E03.9 and Iron deficiency anemia, unspecified iron deficiency anemia type D50.9 [place] [id number] [place] [address] 11411- 8319 Jan, Encounter for immunization Z23 [place] [id number] [place] [address] 66607- 9310 December, Mild persistent asthma without complication J45.30 [id number] [place] [address] 00184- 6505 December, Hypothyroidism (acquired) E03.9 ; Mild persistent asthma without complication J45.30 ; Iron deficiency anemia, unspecified iron deficiency anemia type D50.9 and Elevated brain natriuretic peptide (BNP) level R79.89 [facility] [facility] [id number] [place] [address] 53753- 7510 December, Elevated brain natriuretic peptide (BNP) level R79.89 and Iron deficiency anemia, unspecified iron deficiency anemia type D50.9 [place] [id number] [place] [address] 28073- 1173 December, Essential tremor G25.0 and Generalized anxiety disorder F41.1 [facility] [id number] [place] [address] 80330- 3534 December, Essential hypertension I10 ; Iron deficiency anemia, unspecified iron deficiency anemia type D50.9 ; Leg swelling M79.89 and Hyperlipidemia E78.5 [facility] [id number] [place] [address] 10071- 0560 Nov, Essential hypertension I10 ; Hyperlipidemia E78.5 ; Prediabetes R73.09 ; Leg swelling M79.89 ; Iron deficiency anemia, unspecified iron deficiency anemia type D50.9 and Hypothyroidism (acquired) E03.9 [facility] [id number] [place] [address] 96662- 2488 Nov, Hypothyroidism (acquired) E03.9 [facility] [id number] [place] [address] 80026- 8852 Sep, Hypothyroidism (acquired) E03.9 [facility] [id number] [place] [address] 70887- 0341 Sep, Hypothyroidism (acquired) E03.9 [facility] [id number] [place] [address] 41214- 9664 Sep, [facility] [id number] [place] [address] 91208- 6498 Jul, [facility] [id number] [place] [address] 20416- 0208 Jul, Hypothyroidism (acquired) E03.9 [facility] [id number] [place] [address] 76289- 7298 Jul, Hypothyroidism (acquired) E03.9 [facility] [id number] [place] [address] 50395- 9572 Jul, [facility] [id number] [place] [address] 73461- 2768 Jul, Anemia, unspecified type D64.9 [place] [id number] [place] [address] 74620- 6106 Jun, Anemia, unspecified type D64.9 and Hypothyroidism (acquired ) E03.9 [facility] [id number] [place] [address] 63147- 4356 Jun, Hypothyroidism (acquired) E03.9 and Anemia, unspecified type D64.9 [facility] [id number] [place] [address] 19814- 8152 Jun, Hypothyroidism (acquired) E03.9 and Anemia, unspecified type D64.9 [place] [address] 83788- 6445 Jun, [place] [id number] [place] [address] 02409- 5661 Jun, Hypothyroidism (acquired) E03.9 ; Essential hypertension I10 ; Prediabetes R73.09 and Hyperlipidemia E78.5 [place] [id number] [place] [address] 22527- 6913 Jun, Hypothyroidism (acquired) E03.9 ; Mild persistent asthma without complication J45.30 ; Prediabetes R73.09 ; Hyperlipidemia E78.5 ; Essential hypertension I10 ; Essential tremor G25.0 ; Generalized anxiety disorder F41.1 and Chronic pansinusitis J32.4 [place] [id number] [place] [address] 50182- 5812 May, Pneumonia due to infectious organism, unspecified laterality , unspecified part of lung J18.9 [facility] [id number] [place] [address] 86477- 0894 May, Encounter for immunization Z23 [facility] [id number] [place] [address] [id number] Mar, Dental examination Z01.20 [facility] [id number] [place] [address] 04605- 1658 Mar, Essential hypertension I10 [address] [address], [place] [address] Feb, Essential hypertension I10 [facility] [id number] [place] [address] 10687- 3538 Feb, Essential hypertension I10 [facility] [id number] [place] [address] 20427- 8960 Feb, [facility] [id number] [place] [address] 28539- 2303 Feb, Hypothyroidism (acquired) E03.9 [facility] [id number] [place] [address] [id number] Jan, Dental examination Z01.20 [facility] [id number] [place] [address] [id number] December, Encounter for dental examination Z01.20 [facility] [id number] [place] [address] 38303- 0341 December, [facility] [id number] [place] [address] [id number] December, Encounter for dental examination Z01.20 [facility] [id number] [place] [address] 38539- 2801 Nov, Hypothyroidism (acquired) E03.9 [facility] [id number] [place] [address] [id number] Nov, [facility] [id number] [place] [address] [id number] Nov, Encounter for dental examination Z01.20 [facility] [id number] [place] [address] 55909- 6271 Nov, Hypothyroidism (acquired) E03.9 ; Essential hypertension I10 ; Essential tremor G25.0 ; Generalized anxiety disorder F41.1 ; Mild persistent asthma without complication J45.30 and Chronic pansinusitis J32.4 [facility] [id number] [place] [address] 43970- 9180 Nov, [facility] [id number] [place] [address] 39932- 9491 Nov, [place] [address] 35034- 3200 Sep, Cough R05 and Pneumonia of right middle lobe due to infectious organism J18.9 [facility] [id number] [place] [address] [id number] May, Encounter for dental examination Z01.20 [address] [address] 53193- 4518 Apr, Influenza vaccine administered V04.[address] 77374- 1375 Apr, Hypocalcemia 275.41 and Unspecified vitamin D deficiency 268.[address] 21037- 6485 16 Apr, 2015 Generalized anxiety disorder 300.02 [address] [address] 05600- 9461 10 Apr, 2015 Hyperlipidemia 272.4 ; Hypocalcemia 275.41 and Unspecified vitamin D deficiency 268.9 [place] [id number] [place] [address] 27923- 8890 09 Apr, 2015 Unspecified hypothyroidism 244.9 and Essential hypertension , benign 401.1 [address] [id number] [place] [address] 95168- 2989 Apr, Unspecified hypothyroidism 244.9 ; Essential hypertension, benign 401.1 ; Chronic rhinosinusitis 473.9 and Hearing loss 389.9 [address] [id number] [place] [address] 49311- 3143 Feb, [place] [id number] [place] [address] 05727- 1797 Jan, Hypothyroidism 244.9 [address] [address] 60582- 4112 Jan, Chronic rhinosinusitis 473.9 and Unspecified hypothyroidism 244.9 [facility] [address] [address]- 7415 Jan, [facility] [id number] [place] [address] 578713- 2684 December, Generalized anxiety disorder 300.02 [facility] [address] [id number] December, Dental examination V72.2 [facility] [id number] [place] [address] 03641- 3977 December, Hypothyroidism 244.9 [facility] [id number] [place] [address] 197661- 5247 December, Hypothyroidism 244.9 [facility] [id number] [place] [address] 23771- 6568 Nov, [facility] [id number] [place] [address] 80913- 8938 Nov, [facility] [id number] [place] [address] 56782- 9459 Oct, [facility] [id number] [place] [address] 02689- 0158 Oct, [facility] [address], [place] [address]- 9269 Oct, [facility] [id number] [place] [address] 50969- 4169 Oct, [facility] [id number] [place] [address] 17767- 2420 Oct, [facility] [id number] [place] [address] 53794- 4877 Oct, [facility] [address] 9041 Oct, [facility] [id number] [place] [address] 26275- 4581 Oct, [facility] [place] [facility] [address] [id number] [place] [address]- 0512 Oct, [facility] [place] [facility] [address] [id number] [place] [address]- 1030 Oct, [facility] [place] [facility] [address] [id number] [place] [address]- 4655 Oct, [facility] [place] [facility] [address] [id number] [place] [address]- 3498 Oct, [facility] [place] [facility] [address] [id number] [place] [address]- 7160 Oct, [facility] [place] [facility] [address] [id number] [place] [address]- 0308 Oct, [facility] [place] [facility] [address] [id number] [place] [address]- 8808 Oct, [facility] [place] [facility] [address] [id number] [place] [address]- 4635 Oct, [facility] [place] [facility] [address] [id number] [place] [address]- 3214 Sep, [facility] [place] [facility] [address] [facility] [id number] [place] [address]- 4092 Sep, [facility] [place] [facility] [address] [id number] [place] [address]- 2078 Aug, [facility] [place] [facility] [address] [id number] [place] [address]- 8857 Aug, [facility] [place] [facility] [address] [id number] [place] [address]- 4209 Aug, [facility] [place] [facility] [address] [id number] [place] [address]- 1730 Aug, [facility] [place] [facility] [address] [facility] [id number] [address]- 9527 Aug, [facility] [place] [facility] [address] [id number] [place] [address]- 7698 Aug, [facility] [place] [facility] [address] [id number] [place] [address]- 5657 Aug, [facility] [place] [facility] [address] [id number] [place] [address]- 6896 Aug, [facility] [place] [facility] [address] [id number] [place] [address]- 4864 Jun, [facility] [place] [facility] [address] [id number] [place] [address]- 0132 Jun, [facility] [place] [facility] [address] [id number] [place] [address]- 1288 May, [facility] [place] [facility] [address] [id number] [place] [address]- 8316 May, [facility] [place] [facility] [address] [id number] [place] [address]- 7478 May, [facility] [place] [facility] [address] [id number] [place] [address]- 5612 May, [facility] [place] [facility] [address] [id number] [place] [address]- 1900 May, [facility] [place] [facility] [address] [id number] [place] [address]- 4087 May, [facility] [place] [facility] [address] [id number] [place] [address]- 9660 24 Apr, 2014 [facility] [place] [facility] [address] [id number] [place] [address]- 8694 24 Apr, 2014 [facility] [place] [facility] [address] [id number] [place] [address]- 8172 17 Apr, 2014 [facility] [place] [facility] [address] [id number] [place] [address]- 2186 17 Apr, 2014 [facility] [place] [facility] [address] [id number] [place] [address]- 0773 Apr, [facility] [place] [facility] [address] [id number] [place] [address]- 7586 Apr, [facility] [place] [facility] [address] [id number] [place] [address]- 7114 Apr, [facility] [place] [facility] [address] [id number] [place] [address]- 2717 Apr, [facility] [place] [facility] [address] [id number] [place] [address]- 0733 Mar, [facility] [place] [facility] [address] [id number] [place] [address]- 8198 Mar, [facility] [place] [facility] [address] [id number] [place] [address]- 0676 Mar, [facility] [place] [facility] [address] [id number] [place] [address]- 8425 Mar, [facility] [place] [facility] [address] [id number] [place] [address]- 7030 Mar, [facility] [place] [facility] [address] [id number] [place] [address]- 9684 Mar, [facility] [place] [facility] [address] [id number] [place] [address]- 8856 Mar, [facility] [place] [facility] [address] [id number] [place] [address]- 5660 Mar, [facility] [place] [facility] [address] [id number], [place] [address]- 6719 Feb, [facility] [place] [facility] [address] [id number] [place] [address]- 4213 Feb, [facility] [place] [facility] [address] [id number] [place] [address]- 5532 Feb, [facility] [place] [facility] [address] [id number] [place] [address]- 3172 Feb, [facility] [place] [facility] [address] [id number] [place] [address]- 0851 Jan, [facility] [place] [facility] [address] [id number] [place] [address]- 3652 Jan, [facility] [place] [facility] [address] [id number] [place] [address]- 4053 December, [facility] [place] [facility] [address] [id number] [place] [address]- 3755 December, [facility] [place] [facility] [address] [id number] [place] [address]- 6237 Nov, [facility] [place] [facility] [address] [id number] [place] [address]- 2464 Nov, [facility] [place] [facility] [address] [id number] [place] [address]- 7742 Nov, [facility] [place] [facility] [address] [id number] [place] [address]- 4526 Nov, [facility] [place] [facility] [address] [id number] [place] [address]- 0977 Nov, [facility] [place] [facility] [address] [id number] [place] [address]- 0769 Nov, [facility] [place] [facility] [address] [id number] [place] [address]- 3035 Nov, [facility] [place] [facility] [address] [id number] [place] [address]- 7058 Nov, [facility] [place] [facility] [address] [id number] [place] [address]- 9108 Nov, [facility] [place] [facility] [address] [id number] [place] [address]- 9085 Sep, [facility] [place] [facility] [address] [id number] [place] [address]- 1972 Sep, [facility] [place] [facility] [address] [id number] [place] [address]- 7616 Sep, [facility] [address] [id number] [place] [address]- 4561 Sep, [facility] [place] [facility] [address] [id number] [place] [address]- 7606 Aug, [facility] [place] [facility] [address] [id number] [place] [address]- 4792 Jun, [facility] [place] [facility] [address] [id number] [place] [address]- 3069 Jun, [facility] [place] [facility] [address] [id number] [place] [address]- 0757 May, [facility] [place] [facility] [address] [id number] [place] [address]- 7006 Apr, [facility] [place] [facility] [address] [id number] [place] [address]- 8795 Mar, [facility] [place] [facility] [address] [id number] [place] [address]- 5556 Feb, [facility] [place] [facility] [address] [id number] [place] [address]- 1575 Jan, [facility] [place] [facility] [address] [id number] [place] [address]- 3972 December, [facility] [place] [facility] [address] [id number] [place] [address]- 8537 Nov, [facility] [place] [facility] [address] [id number], [place] [address]- 1966 Oct, [facility] [place] [facility] [address] [id number] [place] [address]- 6172 Oct, [facility] [place] [facility] [address] [id number] [place] [address]- 4986 Oct, [facility] [place] [facility] [address] [id number] [place] [address]- 4607 Sep, [facility] [place] [facility] [address] [id number] [place] [address]- 9147 Sep, [facility] [place] [facility] [address] [id number] [place] [address]- 2329 Aug, [facility] [place] [facility] [address] [id number] [place] [address] 2546 Aug, [facility] [place] [facility] [address] [id number] [place] [address]- 7926 Aug, [facility] [place] [facility] [address] [id number] [place] [address]- 3073 Aug, [facility] [place] [facility] [address] [id number] [place] [address]- 5127 Jul, [facility] [place] [facility] [address] [id number] [place] [address]- 4920 Jul, [facility] [place] [facility] [address] [id number] [place] [address]- 5087 May, [facility] [place] [facility] [address] [id number] [place] [address]- 9419 May, [facility] [place] [facility] [address] [id number] [place] [address]- 7721 May, [facility] [place] [facility] [address] [id number] [place] [address]- 5765 May, [facility] [place] [facility] [address] [id number] [place] [address]- 2212 May, [facility] [place] [facility] [address] [id number] [place] [address] Apr, [facility] [place] [facility] [address] [id number] [place] [address] Mar, [facility] [place] [facility] [address] [id number] [place] [address] Mar, [facility] [place] [facility] [address] [id number] [place] [address] Feb, [facility] [address] [id number], [place] [address] December, [facility] [address] [id number] [place] [address] December, [facility] [address] [id number] [place] [address] December, [facility] [place] [id number] December, [facility] [place] [id number] December, [facility] [address] [id number], [place] [address] December, [address] [id number][place] [id number] December, [facility] [address] [id number], [place] [address] Nov, [facility] [address] [id number], [place] [address] Jul, [facility] [address] [id number] [place] [address] Jul, [facility] [address] [id number] [place] [address] Jun, [facility] [address] [id number], [place] [address] Feb, [facility] [address] [id number], [place] [address] Jan, [facility] [address] [id number] [place] [address] May, [facility] [address] [id number], [place] [address] May, [facility] [address] [id number], [place] [address] May, IMMUNIZATIONS No Known Immunizations SOCIAL HISTORY Never Assessed REASON FOR VISIT Lab (walk-in) PLAN OF CARE VITAL SIGNS MEDICATIONS No Known Medications RESULTS Name Result Date Reference Range TSH 2017-03-08 TSH 0.656 0.450-4.500 CBC 2017-03-08 WBC 6.4 3.4-10.8 RBC 4.41 3.77-5.28 Hemoglobin 11.3 11.1-15.9 Hematocrit 36.3 34.0-46.6 MCV 82 79-97 MCH 25.6 26.6-33.0 MCHC 31.1 31.5-35.7 RDW 19.8 12.3-15.4 Platelets 213 150-379 Neutrophils 70 Lymphs 19 Monocytes 8 Eos 2 Basos 1 Immature Cells Neutrophils (Absolute) 4.5 1.4-7.0 Lymphs (Absolute) 1.2 0.7-3.1 Monocytes(Absolute) 0.5 0.1-0.9 Eos (Absolute) 0.2 0.0-0.4 Baso (Absolute) 0.0 0.0-0.2 Immature Granulocytes 0 Immature Grans (Abs) 0.0 0.0-0.1 NRBC Hematology Comments: PROCEDURES Procedure Date Ordered Result Body Site ASSAY THYROID STIM HORMONE March 08, 2017 COMPLETE CBC W/AUTO DIFF WBC March 08, 2017 VENIPUNCT, ROUTINE* March 08, 2017 INSTRUCTIONS MEDICATIONS ADMINISTERED No Known Medications MEDICAL [...]
--- OUTSIDE RECORDS SUMMARY | 2018-03-23 15:58 | XMS REPORT ---
Author Author JUAN JOSE HELLER e[employer] Address Unknown Phone Unavailable Care Team Providers Care Heavy Threader Name Role Phone JUAN JOSE HELLER CP Unavailable Allergies No Known Allergies Problems Problem Type Condition ICD-9 Code Onset Dates Condition Status Problem Palpitations 785.1 Active Problem Unspecified vitamin D deficiency 268.9 Active Problem Generalized anxiety disorder 300.02 Active Problem Asthma, moderate 493.90 Active Problem Chronic rhinosinusitis 473.9 Active Problem Hyperlipidemia 272.4 Active Problem Essential and other specified forms of tremor 333.1 Active Problem Shortness of breath 786.05 Active Problem Unspecified hypothyroidism 244.9 Active Problem Essential hypertension, benign 401.1 Active Assessment Unspecified vitamin D deficiency 268.9 Active Assessment Hypocalcemia 275.41 Active Assessment Hyperlipidemia 272.4 Active Medications No Known Medications Results No Known Results Summary Purpose eClinicalWorks Submission
--- OUTSIDE RECORDS SUMMARY | 2018-03-23 15:59 | XMS REPORT ---
Author Author PINAJUAN JOSE PORTILLO [facility] Address [address] [place] [address] Care Team Providers Care Wine Manager Name Role Phone JUAN JOSE HELLER Unavailable PROBLEMS Type Condition ICD9-CM Code XWX23-SY Code Onset Dates Condition Status SNOMED Code Problem Hypothyroidism (acquired) E03.9 Active 945915036 Problem Palpitations R00.2 Active 60895896 Problem Shortness of breath R06.02 Active 616725834 Problem BMI 45.0-49.9, adult Z68.42 Active 752577469 Problem Iron deficiency anemia, unspecified iron deficiency anemia type D50.9 Active 08213887 Problem Essential tremor G25.0 Active 10347162 Problem Chronic pansinusitis J32.4 Active 93563565 Problem Bilateral sensorineural hearing loss H90.3 Active 134903250 Problem Generalized anxiety disorder F41.1 Active 802559690 Problem Mild persistent asthma without complication J45.30 Active 058433829 Problem Essential hypertension I10 Active 82912172 Problem Hyperlipidemia E78.5 Active 53967995 Problem Prediabetes R73.09 Active 234422797 Problem Vitamin D deficiency E55.9 Active 09245812 ALLERGIES Substance Reaction Event Type Date Status Hydrochlorothiazide Unknown Drug Allergy Apr, Active Amoxicillin Unknown Drug Allergy Apr, Active Nuts Unknown Non Drug Allergy Apr, Active Seasonal Unknown Non Drug Allergy Apr, Active ENCOUNTERS Encounter Location Date Diagnosis [facility] [address] [facility] [id number], [place] [address] Nov, [facility] [address] [facility] [id number], [place] [address] Nov, Acute recurrent pansinusitis J01.41 ; Intractable vomiting without nausea, unspecified vomiting type R11.11 ; Mild persistent asthma without complication J45.30 and BMI 45.0-49.9, adult Z68.42 [facility] [id number] [place] [address]53 -7207 Jul, Acute non-recurrent maxillary sinusitis J01.00 [facility] [id number] [place] [address] 77076- 7580 07 Jun, 2017 Pulmonary hypertension I27.20 ; Other hypervolemia E87.79 ; Hypothyroidism (acquired) E03.9 ; Vitamin D deficiency E55.9 ; Prediabetes R73.09 ; Iron deficiency anemia, unspecified iron deficiency anemia type D50.9 ; Essential tremor G25.0 ; Generalized anxiety disorder F41.1 ; Mild persistent asthma without complication J45.30 ; Hyperlipidemia E78.5 and BMI 45.0-49.9, adult Z68.42 [facility] [id number] [place] [address] [id number] 12 May, [address] [facility] [address] [address]- [address] 12 May, 2017 [facility] [address] [address]- [address] May, [facility] [address] [address]86- [address]48 14 Apr, 2017 Encounter for immunization Z23 [facility] [address] [place] [id number] [place] [address] 08255- 0920 Feb, Generalized anxiety disorder F41.1 [facility] [address] [address]- 5714 Feb, Hypothyroidism (acquired) E03.9 and Iron deficiency anemia, unspecified iron deficiency anemia type D50.9 [facility] [address] [place] [id number] [place] [address] 44027- 7972 05 Jan, 2017 Encounter for immunization Z23 [facility] [address] 77083- 7256 December, Mild persistent asthma without complication J45.30 [facility] [id number] [place] [address] December, Hypothyroidism (acquired) E03.9 ; Mild persistent asthma without complication J45.30 ; Iron deficiency anemia, unspecified iron deficiency anemia type D50.9 and Elevated brain natriuretic peptide (BNP) level R79.89 [place] [facility] [id number] [place] [address] 32296- 0118 December, Elevated brain natriuretic peptide (BNP) level R79.89 and Iron deficiency anemia, unspecified iron deficiency anemia type D50.9 [facility] [facility] [id number] [place] [address] 40209- 4065 December, Essential tremor G25.0 and Generalized anxiety disorder F41.1 [facility] [id number] [place] [address] 55913- 4895 December, Essential hypertension I10 ; Iron deficiency anemia, unspecified iron deficiency anemia type D50.9 ; Leg swelling M79.89 and Hyperlipidemia E78.5 [facility] [id number] [place] [address] 17309- 7409 Nov, Essential hypertension I10 ; Hyperlipidemia E78.5 ; Prediabetes R73.09 ; Leg swelling M79.89 ; Iron deficiency anemia, unspecified iron deficiency anemia type D50.9 and Hypothyroidism (acquired) E03.9 [facility] [facility] [id number] [place] [address] 42801- 4007 Nov, Hypothyroidism (acquired) E03.9 [facility] [id number] [place] [address] 68610- 1550 Sep, Hypothyroidism (acquired) E03.9 [facility] [id number] [place] [address] 12845- 0260 Sep, Hypothyroidism (acquired) E03.9 [facility] [facility] [id number] [place] [address] 67856- 1215 Sep, [place] [address] 61835- 3376 Jul, [place] [address] [address] 130[address] Jul, Hypothyroidism (acquired) E03.9 [place] [address] [place] [address] 34727- 6019 Jul, Hypothyroidism (acquired) E03.9 [place] [facility] [address] [place] [address] 59484- 0282 Jul, [facility] [id number] [place] [address] 46929- 8878 Jul, Anemia, unspecified type D64.9 [facility] [facility] [id number] [place] [address] 67416- 0832 Jun, Anemia, unspecified type D64.9 and Hypothyroidism (acquired ) E03.9 [place] [address] [place] [address] 51229- 5338 Jun, Hypothyroidism (acquired) E03.9 and Anemia, unspecified type D64.9 [place] [address] [place] [address] 21564- 2805 Jun, Hypothyroidism (acquired) E03.9 and Anemia, unspecified type D64.9 [place] [address] [place] [address] 75322- 0367 Jun, [place] [address] [place] [address] 84495- 7237 Jun, Hypothyroidism (acquired) E03.9 ; Essential hypertension I10 ; Prediabetes R73.09 and Hyperlipidemia E78.5 [place] [address] [place] [address] 93626- 0801 03 Jun, 2016 Hypothyroidism (acquired) E03.9 ; Mild persistent asthma without complication J45.30 ; Prediabetes R73.09 ; Hyperlipidemia E78.5 ; Essential hypertension I10 ; Essential tremor G25.0 ; Generalized anxiety disorder F41.1 and Chronic pansinusitis J32.4 [facility] [facility] [address] [id number] [address] May, Pneumonia due to infectious organism, unspecified laterality , unspecified part of lung J18.9 [facility] [id number] [place] [address] 55382- 5872 May, Encounter for immunization Z23 [facility] [address] [place] [address] [id number] Mar, Dental examination Z01.20 [facility] [id number] [place] [address] 89487- 4991 Mar, Essential hypertension I10 [facility] [address] 64563- 0038 Feb, Essential hypertension I10 [facility] [id number] [place] [address] 65615- 5322 Feb, Essential hypertension I10 [facility] [id number] [place] [address] 15711- 4768 Feb, [facility] [id number] [place] [address] 27171- 9580 Feb, Hypothyroidism (acquired) E03.9 [facility] [id number] [place] [address] [id number] Jan, Dental examination Z01.20 [facility] [address] [place] [address] [id number] December, Encounter for dental examination Z01.20 [facility] [address] [address] 2546 December, [facility] [id number] [place] [address] [id number] December, Encounter for dental examination Z01.20 [facility] [address] [place] [address] 36254 2546 Nov, Hypothyroidism (acquired) E03.9 [facility] [id number] [place] [address] [id number] Nov, [facility] [address] [id number] [id number] Nov, Encounter for dental examination Z01.20 [facility] [id number] [place] [address] 494068- 0779 Nov, Hypothyroidism (acquired) E03.9 ; Essential hypertension I10 ; Essential tremor G25.0 ; Generalized anxiety disorder F41.1 ; Mild persistent asthma without complication J45.30 and Chronic pansinusitis J32.4 [place] [address] 20316- 1023 Nov, [place] [address] 80647- 8157 Nov, [place] [address] 18652- 3262 Sep, Cough R05 and Pneumonia of right middle lobe due to infectious organism J18.9 [facility] [address] [place] [address] [id number] May, Encounter for dental examination Z01.20 [place] [address] 80647- 8838 Apr, Influenza vaccine administered V04.81 [place] [address] 57040- 7922 Apr, Unspecified vitamin D deficiency 268.9 and Hypocalcemia 275.41 [facility] [facility] [id number] [place] [address] 43073- 5037 16 Apr, 2015 Generalized anxiety disorder 300.02 [place] [address] 63634- 3121 10 Apr, 2015 Hyperlipidemia 272.4 ; Hypocalcemia 275.41 and Unspecified vitamin D deficiency 268.9 [place] [facility] [id number] [place] [address] 98746- 4263 09 Apr, 2015 Unspecified hypothyroidism 244.9 and Essential hypertension , benign 401.1 [address] [address] 4[address] Apr, Unspecified hypothyroidism 244.9 ; Essential hypertension, benign 401.1 ; Chronic rhinosinusitis 473.[address] [facility] [address], [place] [address]- 8053 Feb, [facility] [id number] [place] [address] 09589- 8902 Jan, Hypothyroidism 244.9 [facility] [id number] [place] [address] 26247- 1501 Jan, Chronic rhinosinusitis 473.9 and Unspecified hypothyroidism 244.9 [facility] [id number] [place] [address] 792845- 7533 Jan, [facility] [id number] [place] [address] 79357- 6229 December, Generalized anxiety disorder 300.02 [facility] [id number] [place] [address] [id number] December, Dental examination V72.2 [facility] [id number] [place] [address] 89159- 0351 December, Hypothyroidism 244.9 [facility] [address] [place] [address] 43389- 9304 December, Hypothyroidism 244.9 [facility] [id number] [place] [address] 59384- 7791 Nov, [facility] [address] [place] [address] 44384- 4235 Nov, [facility] [id number] [place] [address] [id number]- [address] Oct, [facility] [id number] [place] [address] 56072- 0119 Oct, [facility] [id number] [place] [address] 09612- 2546 24 Oct, 2014 [facility] [place] [facility] [address] [id number] [place] [address]- 3079 24 Oct, 2014 [facility] [place] [facility] [address] [id number] [place] [address]- 2034 Oct, [facility] [place] [facility] [address] [id number] [place] [address]- 4119 Oct, [facility] [place] [facility] [address] [id number] [place] [address]- 5580 Oct, [facility] [place] [facility] [address] [id number] [place] [address]- 0379 Oct, [facility] [place] [facility] [address] [id number] [place] [address]- 9682 Oct, [facility] [place] [facility] [address] [id number] [place] [address]- 3987 Oct, [facility] [place] [facility] [address] [id number] [place] [address]- 5163 Oct, [facility] [place] [facility] [address] [id number] [place] [address]- 9536 Oct, [facility] [place] [facility] [address] [id number] [place] [address]- 3677 Oct, [facility] [place] [facility] [address] [id number] [place] [address]- 3830 Oct, [facility] [place] [facility] [address] [id number] [place] [address]- 4643 Oct, [facility] [place] [facility] [address] [id number] [place] [address]- 2366 Oct, [facility] [place] [facility] [address] [id number] [place] [address]- 6013 Sep, [facility] [place] [facility] [address] [id number] [place] [address]- 7030 Sep, [facility] [place] [facility] [address] [id number] [place] [address]- 1214 Aug, [facility] [place] [facility] [address] [id number] [place] [address]- 0546 Aug, [facility] [place] [facility] [address] [id number] [place] [address]- 9734 Aug, [facility] [place] [facility] [address] [id number] [place] [address]- 0553 Aug, [facility] [place] [facility] [address] [id number] [place] [address]- 6230 Aug, [facility] [place] [facility] [address] [id number] [place] [address]- 1381 Aug, [facility] [place] [facility] [address] [id number] [place] [address]- 0759 Aug, [facility] [place] [facility] [address] [id number] [place] [address]- 3942 Aug, [facility] [place] [facility] [address] [id number] [place] [address]- 6921 Jun, [facility] [place] [facility] [address] [id number] [place] [address]- 2991 Jun, [facility] [place] [facility] [address] [id number] [place] [address]- 8895 May, [facility] [place] [facility] [address] [id number] [place] [address]- 2679 May, [facility] [place] [facility] [address] [id number] [place] [address]- 8943 May, [facility] [place] [facility] [address] [id number] [place] [address]- 1589 May, [facility] [place] [facility] [address] [id number] [place] [address]- 4284 May, [facility] [place] [facility] [address] [id number] [place] [address]- 4730 May, [facility] [place] [facility] [address] [id number] [place] [address]- 2074 Apr, [facility] [place] [facility] [address] [id number] [place] [address]- 2916 Apr, [facility] [place] [facility] [address] [id number] [place] [address]- 2567 Apr, [facility] [place] [facility] [address] [id number] [place] [address]- 4100 Apr, [facility] [place] [facility] [address] [id number] [place] [address]- 5229 Apr, [facility] [place] [facility] [address] [id number] [place] [address]- 3315 Apr, [facility] [place] [facility] [address] [id number] [place] [address]- 3675 Apr, [facility] [place] [facility] [address] [id number] [place] [address]- 6001 Apr, [facility] [place] [facility] [address] [id number] [place] [address]- 2323 Mar, [facility] [place] [facility] [address] [id number] [place] [address]- 3490 Mar, [facility] [place] [facility] [address] [id number] [place] [address]- 5665 Mar, [facility] [place] [facility] [address] [id number], [place] [address]- 7374 Mar, [facility] [place] [facility] [address] [id number] [place] [address]- 4234 Mar, [facility] [place] [facility] [address] [id number] [place] [address]- 9835 Mar, [facility] [place] [facility] [address] [id number] [place] [address]- 5821 Mar, [facility] [place] [facility] [address] [id number] [place] [address]- 3628 Mar, [facility] [place] [facility] [address] [id number] [place] [address]- 1976 Feb, [facility] [place] [facility] [address] [id number] [place] [address]- 1195 Feb, [facility] [place] [facility] [address] [id number] [place] [address]- 8423 Feb, [facility] [place] [facility] [address] [id number] [place] [address]- 3854 Feb, [facility] [place] [facility] [address] [id number] [place] [address]- 3317 Jan, [facility] [place] [facility] [address] [id number] [place] [address]- 7255 Jan, [facility] [place] [facility] [address] [id number] [place] [address]- 1636 December, [facility] [place] [facility] [address] [id number] [place] [address]- 4952 December, [facility] [place] [facility] [address] [id number] [place] [address]- 3976 Nov, [facility] [place] [facility] [address] [id number] [place] [address]- 8651 Nov, [facility] [place] [facility] [address] [id number] [place] [address]- 2001 Nov, [facility] [place] [facility] [address] [id number] [place] [address]- 4180 Nov, [facility] [place] [facility] [address] [id number] [place] [address]- 6686 Nov, [facility] [place] [facility] [address] [id number] [place] [address]- 1656 Nov, [facility] [place] [facility] [address] [id number] [place] [address]- 1506 Nov, [facility] [place] [facility] [address] [id number] [place] [address]- 1527 Nov, [facility] [place] [facility] [address] [id number] [place] [address]- 7497 Nov, [facility] [place] [facility] [address] [id number] [place] [address]- 9523 Sep, [facility] [place] [facility] [address] [id number] [place] [address]- 4632 Sep, [facility] [place] [facility] [address] [id number] [place] [address]- 3359 Sep, [facility] [place] [facility] [address] [id number] [place] [address]- 9999 Sep, [facility] [place] [facility] [address] [id number] [place] [address]- 7844 Aug, [facility] [place] [facility] [address] [id number] [place] [address]- 8261 Jun, [facility] [place] [facility] [address] [id number] [place] [address]- 1240 Jun, [facility] [place] [facility] [address] [id number] [place] [address]- 8719 May, [facility] [place] [facility] [address] [id number] [place] [address]- 2418 Apr, [facility] [place] [facility] [address] [id number] [place] [address]- 2678 Mar, [facility] [place] [facility] [address] [id number] [place] [address]- 4305 Feb, [facility] [place] [facility] [address] [id number] [place] [address]- 7756 Jan, [facility] [place] [facility] [address] [id number] [place] [address]- 7155 December, [facility] [place] [facility] [address] [id number], [place] [address]- 9869 Nov, [facility] [address] [id number] [place] [address]- 5520 Oct, [facility] [place] [facility] [address] [id number], [place] [address]- 5410 Oct, [facility] [place] [facility] [address] [facility] [id number] [place] [address]- 5108 Oct, [facility] [place] [facility] [address] [id number] [place] [address]- 4033 Sep, [facility] [place] [facility] [address] [id number] [place] [address]- 4789 Sep, [facility] [place] [facility] [address] [facility] [id number] [place] [address]- 4998 Aug, [facility] [address] [facility] [id number], [place] [address]- 4963 Aug, [facility] [place] [facility] [address] [facility] [id number], [place] [address]- 9901 Aug, [facility] [address] [facility] [id number], [place] [address]- 7213 Aug, [facility] [place] [facility] [address] [facility] [id number] [place] [address]- 3015 Jul, [facility] [place] [facility] [address] [facility] [id number], [place] [address]- 8371 Jul, [facility] [place] [facility] [address] [facility] [id number], [place] [address]- 2781 May, [facility] [place] [facility] [address] [id number] 5232 May, [facility] [place] [facility] [address] [facility] [id number][place] 6559 May, [facility] [place] [facility] [address] [facility] [id number], [place] [address]- 2119 May, [facility] [place] [facility] [address] [id number] [place] [address] May, [facility] [address] [id number] [place] [address] Apr, [facility] [address] [id number] [place] [address] Mar, [facility] [address] [id number] [place] [address] Mar, [facility] [address] [id number] [place] [address] Feb, [facility] [address] [id number] [place] [address] December, [facility] [address] [id number] [place] [address] December, [facility] [address] [id number] [place] [address] December, [facility] [address] [place] [id number] December, [facility] [address] [place] [id number] December, [facility] [address] [id number] [place] [address] December, [address] [id number] [id number] December, [facility] [address] [id number] [place] [address] Nov, [facility] [address] [id number] [place] [address] Jul, [facility] [address] [id number] [place] [address] Jul, [facility] [address] [id number] [place] [address] Jun, [facility] [address] [id number] [place] [address] Feb, [facility] [address] [facility] [id number][place] [address] Jan, [facility] [address] [facility] [id number][place] [address] May, [facility] [address] [facility] [id number][place] [address] May, [facility] [address] [facility] [id number][place] [address] May, IMMUNIZATIONS Vaccine Route Administration Date Status FLUARIX QUAD (3 AND UP) 2017 IM Intramuscular May 13, 2017 Administered SOCIAL HISTORY Never Assessed REASON FOR VISIT Flu shot---[place],[facility] PLAN OF CARE VITAL SIGNS MEDICATIONS Medication Instructions Dosage Frequency Start Date End Date Duration Status Propranolol HCl 40 mg Orally Three times a day 1 tablet 8h 90 Active Symbicort 160-4.5 MCG/ACT INHALE TWO PUFFS BY MOUTH TWICE DAILY Active Proventil HFA 108 (90 Base) MCG/ACT INHALE TWO PUFFS BY MOUTH FOUR TIMES DAILY NEEDED Active Flonase 50 MCG/ACT Nasally Once a day 1 spray in each nostril 24h Jan, Active Albuterol Sulfate 1.25 MG/3ML Inhalation 4 times a day 3 ml as needed 6h 24 May, 2016 Active Sertraline HCl 100 mg Orally Once a day 1 tablet 24h 90 days Active Vitamin D-3 1000 UNIT Orally Once a day 1 capsule 24h Active Levothyroxine Sodium 175 MCG Orally Once a day 1 tablet 24h 30 Active Melatonin 1 MG by oral route Oct, Active RESULTS No Results PROCEDURES Procedure Date Ordered Result Body Site FLUARIX QUAD (3 & UP)-GSK-2014May 13, 2017 SINGLE IMMUNIZATION ADMIN May 13, 2017 INSTRUCTIONS MEDICATIONS ADMINISTERED No Known Medications [...]
--- OUTSIDE RECORDS SUMMARY | 2018-03-23 15:59 | XMS REPORT ---
Author Author PINA JUAN JOSE Organization [facility] Address [address] [place] [address] Care Team Providers Care Compliance Vice President Name Role Phone JUAN JOSE HELLER Unavailable PROBLEMS Type Condition ICD9-CM Code EWR80-AI Code Onset Dates Condition Status SNOMED Code Problem Hypothyroidism (acquired) E03.9 Active 708073969 Problem Palpitations R00.2 Active 49122693 Problem Shortness of breath R06.02 Active 072415408 Problem BMI 45.0-49.9, adult Z68.42 Active 484025014 Problem Iron deficiency anemia, unspecified iron deficiency anemia type D50.9 Active 48802223 Problem Essential tremor G25.0 Active 30539064 Problem Chronic pansinusitis J32.4 Active 07953962 Problem Bilateral sensorineural hearing loss H90.3 Active 986614871 Problem Generalized anxiety disorder F41.1 Active 182403918 Problem Mild persistent asthma without complication J45.30 Active 242083395 Problem Essential hypertension I10 Active 86671523 Problem Hyperlipidemia E78.5 Active 55286506 Problem Prediabetes R73.09 Active 871024021 Problem Vitamin D deficiency E55.9 Active 08720700 ALLERGIES No Information SOCIAL HISTORY Never Assessed PLAN OF CARE VITAL SIGNS MEDICATIONS No Known Medications RESULTS No Results PROCEDURES Procedure Date Ordered Result Body Site TDAP (BOOSTRIX) February 01, 2017 SINGLE IMMUNIZATION ADMIN February 01, 2017 IMMUNIZATIONS Vaccine Route Administration Date Status TDAP (BOOSTRIX) IM Intramuscular February 01, 2017 Administered MEDICAL (GENERAL) HISTORY Type Description Date Medical [...]
--- OUTSIDE RECORDS SUMMARY | 2018-03-23 15:59 | XMS REPORT ---
Author Author JUAN JOSE HELLER eClinicalWorks Address Unknown Phone Unavailable Care Team Providers Care Industrial Sales Manager Name Role Phone JUAN JOSE HELLER [...] J32.4 Active Problem Essential hypertension I10 Active Assessment Chronic pansinusitis J32.4 Active Problem Essential tremor G25.0 Active Problem Hypothyroidism (acquired) E03.9 Active Problem Generalized anxiety disorder F41.1 Active Problem Palpitations R00.2 Active Problem Shortness of breath R06.02 Active Problem Vitamin D deficiency E55.9 Active Assessment Essential hypertension I10 Active Assessment Hyperlipidemia E78.5 Active Assessment Generalized anxiety disorder F41.1 Active Assessment Essential tremor G25.0 Active Assessment Hypothyroidism (acquired) E03.9 Active Problem Prediabetes R73.09 Active Assessment Prediabetes R73.09 Active Problem Encounter for dental examination Z01.20 Active Assessment Mild persistent asthma without complication J45.30 Active Problem Bilateral sensorineural hearing loss H90.3 Active Medications Medication Code System Code Instructions Start Date End Date Status Dosage Melatonin [facility] [address]-40 1 MG Sublingual November 15, 2014 by oral route Flonase [facility] [address]-59 50 MCG/ACT Nasally Once a day January 31, 2015 1 spray in each nostril Albuterol Sulfate [facility] [address]-57 1.25 MG/3ML Inhalation 4 times a day Jun 22, 2016 3 ml as needed Alavert [facility] [address]-25 10 mg Orally Once a day December 22, 2013 December 29, 2016 1 tablet on the tongue and allow to dissolve Proventil HFA [facility] 53436791045 108 (90 Base) MCG/ACT INHALE TWO PUFFS BY MOUTH FOUR TIMES DAILY NEEDED Vitamin D-3 [facility] [address] 1000 UNIT Orally Once a day 1 capsule Propranolol HCl [facility] [address]-94 40 mg Orally Three times a day 1 tablet Sertraline HCl [facility] [address]-56 100 MG Orally Once a day 1 tablet Levothyroxine Sodium [facility] [address]-72 150 MCG Orally Once a day December 27, 2015 1 tablet Symbicort [facility] 85221434904 160-4.5 MCG/ACT INHALE TWO PUFFS BY MOUTH TWICE DAILY Procedures Procedure Coding System Code Date Office Visit, Est Pt., Level 3 CPT-4 18047 Jul 02, 2016 Vital Signs Date/Time: Jul 02, 2016 Cardiac Monitoring Heart Rate 72 bpm Weight 299.8 lbs Height 68 in BMI 45.58 Index Blood Pressure Diastolic 79 mmHg Blood Pressure Systolic 135 mmHg Results No Known Results Summary Purpose eClinicalWorks Submission
== END 2018-03-19 19:50 | disposition home or self-care (01) ==
LOC: EDUNIT# 21:09 → ER 21:10 → SDC 23:50 → UNDOADMOB 23:50 → 4TH 23:50 → SDC 03-19 19:50 → UNDODISOB 03-19 19:50
PROVIDERS: ATTEND Surgery
DX: K80.10 Calculus of gallbladder with chronic cholecystitis without obstruction (principal); J44.9 Chronic obstructive pulmonary disease, unspecified; K21.9 Gastro-esophageal reflux disease without esophagitis; I10 Essential (primary) hypertension; F41.9 Anxiety disorder, unspecified
CPT/HCPCS: 36415; 74177; 76705; 80053; 81000; 82150; 83690; 85007; 85025; 85027; 87081; 94664; 96361; 96374; 96375; 96376; G0378

== ENCOUNTER 2018-03-20 16:12 | Emergency (ER) | payer OTHER ==
[~2018-03-20] VITALS: Ht 172.7 cm; Wt 136.6 kg
[~2018-03-20 16:12] MED LIST changes: +ACHD5005 PO; +DOCU-143 PO
[2018-03-20] MEDS ORDERED: ONDANSETRON 4 MG/2 ML (SDV) Z0FRAN IVP ONE (17:15)
--- NOTE | 2018-03-20 17:28 | ED GI ---
General Chief Complaint: Abdominal/GI Problems Stated Complaint: N/V,AFTER GALLBLADDER SURGERY Source of Information: Patient, Family Exam Limitations: No Limitations History of Present Illness Date Seen by Provider: Mar 20, 2018 Time Seen by Provider: 17:05 Initial Comments Patient is a 62-year-old female who presents to the emergency room with complaints of nausea and vomiting after her gallbladder surgery. She is accompanied by her daughter today. She reports that she had her gallbladder removed on 03/19/[address] Lewis early in the morning and was sent home last night at 1900. She reports that she was not sent home anything for nausea and vomiting but she did take her pain medication this morning after getting it filled. She reports that for lunch she had cheese, smoked salmon, and crackers. She reports the nausea started shortly after that. Denies any abdominal pain. She also reports that she's had a few episodes of diarrhea today. Timing/Duration: 4-6 Hours Severity/Quality: Mild Activities at Onset: None Associated Symptoms: No Back Pain, No Chest Pain, No Diaphoresis, No Fever/ Chills, No Headache, No Heartburn; Nausea/Vomiting; No Shortness of Air, No Swelling/Mass in Abdomen, No Syncope, No Weakness Allergies and Home Medications Allergies Coded Allergies: Penicillins (Verified Allergy, Mild, HIVES, 12/14/17) hydrochlorothiazide (Verified Allergy, Mild, CRAMPS, 12/14/17) Home Medications Albuterol Sulfate 1.25 Mg/3 Ml Vial.neb, 1.25 MG IH QID PRN for SHORTNESS OF BREATH, (Reported) Albuterol Sulfate 6.7 Gm Hfa.aer.ad, 2 PUFF IH Q6H PRN for SHORTNESS OF BREATH, (Reported) Budesonide/Formoterol Fumarate 10.2 Gm Hfa.aer.ad, 2 PUFF IH BID, (Reported) Cholecalciferol (Vitamin D3) 1,000 Unit Capsule, 1,000 UNIT PO DAILY, (Reported) Docusate Sodium 100 Mg Capsule, 100 MG PO DAILY Prescribed by: LAINE LEIWS on 03/19/18 1441 Ferrous Sulfate 325 Mg Tablet.dr, 325 MG PO DAILY, (Reported) Fluticasone Propionate 9.9 Ml [place].susp, 1 SPRAY NS DAILY, (Reported) 1 SPRAY EACH NARE DAILY Hydrocodone Bit/Acetaminophen 1 Tab Tab, 1 TAB PO Q4H PRN Prescribed by: LAINE LEWIS on 03/19/18 1441 Levothyroxine Sodium 175 Mcg Tablet, 175 MCG PO DAILY, (Reported) Ondansetron 4 Mg Tab.rapdis, 4 MG SL Q4H PRN for NAUSEA/VOMITING-1ST LINE Prescribed by: IFRAH GAUTAM on 03/20/18 1911 Propranolol HCl 40 Mg Tablet, 40 MG PO TID, (Reported) Sertraline HCl 100 Mg Tablet, 50 MG PO DAILY, (Reported) Patient Home Medication List Home Medication List Reviewed: Yes Review of Systems Constitutional: see HPI; No chills, No diaphoresis EENTM: See HPI; No Blurred Vision, No Double Vision, No Eye Pain Respiratory: See HPI; Denies Cough, Denies Orthopnea, Denies Shortness of Air, Denies SOA With Exertion Cardiovascular: See HPI; Denies Chest Pain, Denies Edema, Denies Irregular Heart Rate Gastrointestinal: See HPI; Denies Abdomen Distended, Denies Abdominal Pain, Denies Blood Streaked Stools; Diarrhea, Nausea; Denies Poor Appetite; Vomiting Genitourinary: See HPI; Denies Burning, Denies Discharge, Denies Drainage, Denies Frequency, Denies Flank Pain Musculoskeletal: see HPI; No back pain, No gout, No joint pain Skin: see HPI; No change in color, No change in hair/nails, No dryness, No hx of skin cancer Psychiatric/Neurological: See HPI; Denies Anxiety, Denies Depressed, Denies Emotional Problems, Denies Headache Endocrine: See HPI; Denies Excessive Sweating, Denies Flushing, Denies Intolerance to Cold Hematologic/Lymphatic: See HPI; Denies Anemia, Denies Blood Clots, Denies Easy Bleeding, Denies Easy Bruising All Other Systems Reviewed Negative Unless Noted: Yes Past Tqyjrgk-Hcpyna-Uqhbae Hx Past Med/Social Hx: Reviewed Nursing Past Med/Soc Hx Patient Social History Alcohol Use: Denies Use Recreational Drug Use: No Recent Foreign Travel: No Contact w/Someone Who Travel: No Recent Hopitalizations: No Immunizations Up To Date Date of Pneumonia Vaccine: May 03, 2012 Date of Influenza Vaccine: Jun 14, 2017 Seasonal Allergies Seasonal Allergies: Yes Past Medical History Surgeries: Yes (ESOPHAGEAL STRICTURE STRETCHED) Tonsillectomy Respiratory: Yes (SOB) Asthma, Chronic Bronchitis, COPD Cardiac: Yes (MITRAL VALVE REGURGITATION) Hypertension, Valvular Heart Disease Neurological: No Reproductive Disorders: Yes Sexually Transmitted Disease: No HIV/AIDS: No Gastrointestinal: Yes (ESOPHAGEAL STRICTURE) Gastroesophageal Reflux Musculoskeletal: Yes Arthritis Endocrine: No (HOSHIMOTOS) HEENT: Yes Loss of Vision: Bilateral Hearing Impairment: Hard of Hearing Cancer: No Psychosocial: Yes Anxiety Integumentary: No Blood Disorders: Yes (IRON DEF ANEMIA) Adverse Reaction/Blood Tranf: No (N/A) Family Medical History Reviewed Nursing Family Hx No Pertinent Family Hx Physical Exam Vital Signs Vital Signs - First Documented 03/20/18 16:38 Temp 99.0 Pulse 85 Resp 18 B/P (MAP) 200/129 (152) Pulse Ox 98 O2 Delivery Room Air Capillary Refill : Height/Weight/BMI Height: 5'8.00" Weight: 301lbs. 3.2oz. 136.190344nn; 45.8 BMI Method:Stated General Appearance: WD/WN, no apparent distress HEENT: PERRL/EOMI, normal ENT inspection, TMs normal, pharynx normal Neck: non-tender, full range of motion, supple, normal inspection Respiratory: chest non-tender, lungs clear, normal breath sounds, no respiratory distress, no accessory muscle use Cardiovascular: regular rate, rhythm, no edema, no gallop, no JVD, no murmur Gastrointestinal: normal bowel sounds, non tender, soft, no organomegaly, no pulsatile mass Extremities: normal range of motion, non-tender, normal inspection, no pedal edema, no calf tenderness Back: normal inspection, no CVA tenderness, no vertebral tenderness Neurologic/Psychiatric: alert, normal mood/affect, oriented x 3 Skin: normal color, warm/dry, other (surgical incisions are intact, no drainage , no redness, no induration noted. Skin Glue in place.) Lymphatic: no adenopathy Progress/Results/Core Measures Results/Orders Lab Results Laboratory Tests Test 03/20/18 16:01 03/20/18 16:57 Range/Units Urine Color YELLOW Urine Clarity CLEAR Urine pH 7 5-9 Urine Specific [place] 1.010 L 1.016-1.022 Urine Protein 2+ H NEGATIVE Urine Glucose (UA) NEGATIVE NEGATIVE Urine Ketones NEGATIVE NEGATIVE Urine Nitrite NEGATIVE NEGATIVE Urine Bilirubin NEGATIVE NEGATIVE Urine Urobilinogen NORMAL NORMAL MG/DL Urine Leukocyte Esterase NEGATIVE NEGATIVE Urine RBC (Auto) 1+ H NEGATIVE Urine RBC RARE /HPF Urine WBC 0-2 /HPF Urine Squamous Epithelial Cells 5-10 /HPF Urine Renal Epithelial Cells NONE /HPF Urine Crystals PRESENT H /LPF Urine Calcium Oxalate Crystals RARE H /LPF Urine Bacteria NEGATIVE /HPF Urine Casts PRESENT /LPF Urine Hyaline Casts 0-2 H /LPF Urine Mucus NEGATIVE /LPF Urine Culture Indicated NO White Blood Count 12.5 H 4.3-11.0 10^3/uL Red Blood Count 4.43 4.35-5.85 10^6/uL Hemoglobin 13.4 11.5-16.0 G/DL Hematocrit 40 35-52 % Mean Corpuscular Volume 91 80-99 FL Mean Corpuscular Hemoglobin 30 25-34 PG Mean Corpuscular Hemoglobin Concent 33 32-36 G/DL Red Cell Distribution Width 14.2 10.0-14.5 % Platelet Count 252 130-400 10^3/uL Mean Platelet Volume 12.5 H 7.4-10.4 FL Neutrophils (%) (Auto) 90 H 42-75 % Lymphocytes (%) (Auto) 3 L 12-44 % Monocytes (%) (Auto) 7 0-12 % Eosinophils (%) (Auto) 0 0-10 % Basophils (%) (Auto) 0 0-10 % Neutrophils # (Auto) 11.2 H 1.8-7.8 X 10^3 Lymphocytes # (Auto) 0.4 L 1.0-4.0 X 10^3 Monocytes # (Auto) 0.8 0.0-1.0 X 10^3 Eosinophils # (Auto) 0.0 0.0-0.3 10^3/uL Basophils # (Auto) 0.0 0.0-0.1 10^3/uL Sodium Level 137 135-145 MMOL/L Potassium Level 3.5 L 3.6-5.0 MMOL/L Chloride Level 101 98-107 MMOL/L Carbon Dioxide Level 24 21-32 MMOL/L Anion Gap 12 5-14 MMOL/L Blood Urea Nitrogen 14 7-18 MG/DL Creatinine 0.96 0.60-1.30 MG/DL Estimat Glomerular Filtration Rate 59 BUN/Creatinine Ratio 15 Glucose Level 127 H 70-105 MG/DL Calcium Level 9.5 8.5-10.1 MG/DL Total Bilirubin 0.7 0.1-1.0 MG/DL Aspartate Amino Transf (AST/SGOT) 38 H 5-34 U/L Alanine Aminotransferase (ALT/SGPT) 42 0-55 U/L Alkaline Phosphatase 73 40-136 U/L Total Protein 7.7 6.4-8.2 GM/DL Albumin 4.5 3.2-4.5 GM/DL Amylase Level 51 25-125 U/L Lipase 20 8-78 U/L My Orders Orders - IFRAH GAUTAM Ondansetron Injection (Zofran Injectio (03/20/18 17:15) Comprehensive Metabolic Panel (03/20/18 17:32) Lipase (03/20/18 17:32) Amylase (03/20/18 17:32) Ua Culture If Indicated (03/20/18 17:32) Saline Lock/Iv-Start (03/20/18 17:32) Cbc With Automated Diff (03/20/18 17:32) Promethazine Injection (Phenergan Injec (03/20/18 18:45) Scopolamine Patch (Transderm-Scop Patch) (03/20/18 20:00) Rx-Ondansetron Po (Rx-Zofran Po) (03/20/18 19:53) Rx-Ondansetron Po (Rx-Zofran Po) (03/20/18 19:53) Scopolamine Patch (Transderm-Scop Patch) (03/20/18 19:53) Medications Given in ED Vital Signs/I&O 03/20/18 03/20/18 16:38 19:41 Temp 99.0 99.0 Pulse 85 85 Resp 18 18 B/P (MAP) 200/129 (152) 154/84 (152) Pulse Ox 98 98 O2 Delivery Room Air Progress Progress Note : Progress Note The patient's nausea has been controlled with Zofran and Phenergan. She was instructed to eat clear liquids, advancing to a bland diet, advancing to a normal diet as tolerated. The patient agrees with close follow-up with Dr. Lewis and her primary care physician return precautions were given. Departure Impression Primary Impression: Nausea and vomiting Disposition: 01 HOME, SELF-CARE Condition: Stable/Unchanged Departure-Patient Inst. Decision time for Depature: 19:09 Referrals: LAINE LEWIS BETHANY N MD (PCP/Family) Primary Care Physician Patient Instructions: Nausea and Vomiting, Adult (DC) Add. Discharge Instructions: Take medication as directed. Eat a clear liquid diet until your nausea has resolved and then advanced to a bland diet of nothing spicy or nothing high in fat and then advance to a normal diet as tolerated. Remove the patch behind her ear in 2 days. Drink plenty of clear liquids. Return back to the emergency room for increasing pain, nausea, vomiting, diarrhea. Follow-up with Dr. Vargas and Dr. Lewis within 1 week for recheck. Call tomorrow morning first thing for appointment time. All discharge instructions reviewed with patient and/or family. Voiced understanding. Scripts Ondansetron (Zofran Odt) 4 Mg Tab.rapdis 4 MG SL Q4H PRN for NAUSEA/VOMITING-1ST LINE, #20 TAB Prov: IFRAH GAUTAM 03/20/18 IFRAH GAUTAM Mar 20, 2018 17:28
[2018-03-20 17:41] LABS: BASOPHILS % (AUTO) 0 % (0-10); EOSINOPHILS % (AUTO) 0 % (0-10); HEMATOCRIT 40 % (35-52); HEMOGLOBIN 13.4 G/DL (11.5-16.0); LYMPHOCYTES # (AUTO) 0.4 X 10^3 (1.0-4.0); LYMPHOCYTES % (AUTO) 3 % (12-44); MEAN CORPUSCULAR HEMOGLOBIN 30 PG (25-34); MEAN CORPUSCULAR HGB CONC 33 G/DL (32-36); MEAN CORPUSCULAR VOLUME 91 FL (80-99); MEAN PLATELET VOLUME 12.5 FL (7.4-10.4); MONOCYTES # (AUTO) 0.8 X 10^3 (0.0-1.0); MONOCYTES % (AUTO) 7 % (0-12); NEUTROPHILS # (AUTO) 11.2 X 10^3 (1.8-7.8); NEUTROPHILS % (AUTO) 90 % (42-75); PLATELET COUNT 252 10^3/uL (130-400); RED BLOOD COUNT 4.43 10^6/uL (4.35-5.85); RED CELL DISTRIBUTION WIDTH 14.2 % (10.0-14.5); WHITE BLOOD COUNT 12.5 10^3/uL (4.3-11.0)
[2018-03-20 17:49] LABS: BILIRUBIN,URINE NEGATIVE (NEGATIVE); CLARITY,URINE CLEAR; COLOR,URINE YELLOW; GLUCOSE, URINE (UA) NEGATIVE (NEGATIVE); KETONES,URINE NEGATIVE (NEGATIVE); LEUKOCYTE ESTERASE ,URINE NEGATIVE (NEGATIVE); NITRITE,URINE NEGATIVE (NEGATIVE); PH,URINE 7 (5-9); PROTEIN,URINE 2+ (NEGATIVE); UROBILINOGEN,URINE NORMAL (NORMAL)
[2018-03-20 17:53] LABS: ALBUMIN 4.5 GM/DL (3.2-4.5); BILIRUBIN,TOTAL 0.7 MG/DL (0.1-1.0); CALCIUM 9.5 MG/DL (8.5-10.1); CREATININE SERUM 0.96 MG/DL (0.60-1.30); POTASSIUM 3.5 MMOL/L (3.6-5.0); TOTAL PROTEIN 7.7 GM/DL (6.4-8.2)
[2018-03-20 18:01] LABS: BACTERIA,URINE NEGATIVE /HPF; CALCIUM OXALATE CRYSTALS,UR RARE /LPF; HYALINE CASTS, URINE 0-2 /LPF; RBC,URINE RARE /HPF; WBC,URINE 0-2 /HPF
[2018-03-20] MEDS ORDERED: PROMETHAZINE INJ 25 MG/ML (PHENERGAN) AMP IVP ONE (18:45)
[2018-03-20] MEDS ORDERED: ONDA4TAB8 SL (19:11)
[2018-03-20 19:41] VITALS: BP 154/84
[2018-03-20] MEDS ORDERED: SCOPOLAMINE 1.5 MG (TRANSDERM-SCOP) PATCH ONE (19:53)
[2018-03-20] MEDS ORDERED: RX-ONDANSETRON 4 MG ODT (ZOFRAN) PPK #4 ONE (19:53)
[2018-03-20] MEDS ORDERED: RX-ONDANSETRON 4 MG ODT (ZOFRAN) PPK #4 PO STA (19:53)
[2018-03-20] MEDS ORDERED: SCOPOLAMINE 1.5 MG (TRANSDERM-SCOP) PATCH TD ONE (20:00)
== END 2018-03-20 19:41 | disposition home or self-care (01) ==
LOC: EDUNIT# 16:12 → ER 16:13
DX: R11.2 Nausea with vomiting, unspecified (principal); J44.9 Chronic obstructive pulmonary disease, unspecified; I10 Essential (primary) hypertension; K21.9 Gastro-esophageal reflux disease without esophagitis; F41.9 Anxiety disorder, unspecified; Z98.890 Other specified postprocedural states; Z88.0 Allergy status to penicillin; Z88.8 Allergy status to other drugs, medicaments and biological substances; Z79.51 Long term (current) use of inhaled steroids; Z90.89 Acquired absence of other organs
CPT/HCPCS: 36415; 80053; 81000; 82150; 83690; 85025; 96374; 96375

== ENCOUNTER → 2021-12-10 | Outpatient (CLI) | payer MEDICARE ==
[~2021-12-10] MED LIST changes: +ONDA4TAB8 SL; +SERT-414 PO; -SERT100T8 PO
== END ==
LOC: CARD 09:00
PROVIDERS: ATTEND Internal Medicine Cardiovascular Disease
DX: I48.0 Paroxysmal atrial fibrillation (principal); I51.7 Cardiomegaly
CPT/HCPCS: 93306

== ENCOUNTER → 2021-12-11 | Outpatient (CLI) | payer MEDICARE ==
[~2021-12-11] MED LIST changes: +CATHETER FLUSH 10 ML SYR IVP PRN; +REGADENOSON 0.4 MG/5 ML SYR (LEXISCAN) IV ONE
[2021-12-11 09:01] VITALS: BP 174/104
--- NOTE | 2021-12-12 18:58 | NUCLEAR STRESS TEST ---
REGADENOSON NUCLEAR STRESS Date of procedure: 12/11/2021. Primary care provider: Vianca Vargas MD Admitting physician: Elijah Clark Jr., MD. INDICATION: Paroxysmal atrial fibrillation. BASELINE ELECTROCARDIOGRAM: Atrial fibrillation with a ventricular rate of 78 beats per minutes with nonspecific ST changes. STRESS TEST PROCEDURE: The patient was administered 0.4 mg of intravenous Regadenoson. The resting heart rate was 78 bpm and the peak heart rate was 129 bpm. The resting blood pressure was 174/104 mmHg and the minimum blood pressure was 148/112 mmHg. This represents a normal heart rate and a normal blood pressure response to Regadenoson with resting hypertension. The test was stopped due to the protocol. There was no chest discomfort during the test. The patient was in atrial fibrillation for the duration of the test. There were no significant stress induced electrocardiogram changes. NUCLEAR PROCEDURE: The patient was administered 10.4 mCi of intravenous technetium 99m Tetrofosmin at rest for the rest images. The patient was subsequently administered 31 mCi of intravenous technetium 99m Tetrofosmin at peak stress for the stress images. Following an appropriate wait after each injection, imaging was obtained. The images were subsequently processed and reformatted in the usual views. Gated imaging was obtained. The image quality was normal with a mild degree of gastrointestinal and breast attenuation artifact. CT attenuation correction was used as a adjunct to standard imaging. Both the corrected and uncorrected images were reviewed for interpretation. There was an incidental finding of noncardiac uptake of radioisotope in the upper outer quadrant of the right breast. NUCLEAR RESULTS: There was normal myocardial perfusion in all segments without evidence of infarction or ischemia. There was normal left ventricular chamber size with an end-diastolic volume of 69 mL and an end-systolic volume of 19 mL. There was no evidence of transient ischemic dilatation. The TID ratio was 1.07. There was normal wall motion in all segments with a calculated ejection fraction of 72%. IMPRESSION: 1. Normal heart rate and blood pressure response to regadenoson with resting hypertension. 2. There was no chest discomfort or electrocardiogram changes during the test. 3. The patient was in atrial fibrillation for the duration of the test. 4. There was normal myocardial perfusion in all segments without evidence of infarction or ischemia. 5. There was normal wall motion in all segments with a calculated ejection fraction of 72%. 6. There was an incidental finding of noncardiac uptake of radioisotope in the upper outer quadrant of the right breast. Unclear whether or not this was a spill on the exterior surface of the right breast or uptake within the right breast. Clinical correlation is recommended. Certain portions of this document may have been dictated utilizing voice recognition technology. Inherent to this technology, typographical and grammatical errors may exist. As much as I am diligent to identify and correct these mistakes, some errors may remain in the document. ELIJAH CLARK JR, MD Dec 12, 2021 18:58
== END ==
LOC: CARD 07:21
PROVIDERS: ATTEND Internal Medicine Cardiovascular Disease
DX: I48.0 Paroxysmal atrial fibrillation (principal)
CPT/HCPCS: 78452; 93017; A9502

== ENCOUNTER 2022-02-19 07:40 | Day surgery (SDC) | payer MEDICARE ==
[~2022-02-19] VITALS: Ht 172.7 cm; Wt 124.3 kg
[~2022-02-19 07:40] MED LIST changes: -CATHETER FLUSH 10 ML SYR IVP PRN; -REGADENOSON 0.4 MG/5 ML SYR (LEXISCAN) IV ONE
[2022-02-19] MEDS ORDERED: NS IV 1000 ML 1,000 ML ONE (07:46)
[2022-02-19] MEDS ORDERED: CATHETER FLUSH 10 ML SYR IV PRN (08:00)
[2022-02-19] MEDS ORDERED: NS IV 1000 ML 1,000 ML IV ONE (08:00)
--- NOTE | 2022-02-19 08:22 | Consultation-Cardiology ---
HPI-Cardiology Cardiology Consultation: Date of Consultation 02/19/22 Date of Admission 02/19/22 Attending Physician Vianca Vargas MD Admitting Physician Admitting Physician: Attending Physician: Sujata Clark Jr, MD Consulting Physician SUJATA CLARK JR, MD HPI: Time Seen by a Provider: 08:17 Chief Complaint: THIS IS A HISTORY AND PHYSICAL FOR OUTPATIENT CARDIOVERSION CHIEF COMPLAINT: Persistent atrial fibrillation here for cardioversion. She has a history of atrial fibrillation first diagnosed in November 2021, hypertension, hyperlipidemia, pulmonary hypertension, asthma, Santiago's thyroiditis with hypothyroidism, gastroesophageal reflux disease with a previous stricture that required dilatation, essential tremor, and morbid obesity. I first met her in the office in November 2021 for an evaluation of atrial fibrillation and lower extremity edema. I had her undergo an echocardiogram and nuclear stress test. At the time of follow-up, she remained in atrial fibrillation. As such, she is now referred for direct-current cardioversion. She has persistent lower extremity edema. She tries to keep her feet up on a table when she is sitting in a chair. She has longstanding dyspnea on exertion although downplays this symptom. She denies chest discomfort, paroxysmal nocturnal dyspnea, orthopnea, palpitations, lightheadedness, or syncope. Certain portions of this document may have been dictated utilizing voice recognition technology. Inherent to this technology, typographical and grammatical errors may exist. As much as I am diligent to identify and correct these mistakes, some errors may remain in the document. Review of Systems-Cardiology Review of Systems Other comments Review of 10 organ systems is as per the history of present illness, otherwise negative. REE-Awrggu-Vbaafc Hx Immunizations Up To Date Date of Pneumonia Vaccine: May 03, 2012 Date of Influenza Vaccine: Jun 14, 2017 Past Medical History PMH As described under Assessment. Family Medical History Family Medical History: The patient does not know of any family history of premature coronary artery disease in first-degree relatives. Allergies and Home Medications Allergies Coded Allergies: Penicillins (Verified Allergy, Mild, HIVES, 12/14/17) hydrochlorothiazide (Verified Allergy, Mild, CRAMPS, 12/14/17) Patient Home Medication List Home Medication List Reviewed: Yes Albuterol Sulfate (Albuterol Sulfate) 1.25 Mg/3 Ml Vial.neb, 1.25 MG IH QID PRN for SHORTNESS OF BREATH, (Reported) Entered as Reported by: RUBEN ANAYA on 12/14/171033 Last Action: Reviewed Albuterol Sulfate (Proventil Hfa) 90 Mcg Hfa.aer.ad, 6.7 GM INH QID, (Reported) Entered as Reported by: FLO LUCAS on 02/19/22846 Last Action: Reviewed Apixaban (Eliquis) 5 Mg Tablet, 5 MG PO BID, (Reported) Entered as Reported by: LFO LUCAS on 02/19/22846 Last Action: Reviewed Budesonide/Formoterol Fumarate (Symbicort 160-4.5 Mcg Inhaler) 10.2 Gm Hfa.aer.ad, 2 PUFF IH BID, (Reported) Entered as Reported by: RUBEN ANAYA on 12/14/171033 Last Action: Reviewed Ferrous Sulfate (Ferrous Sulfate) 325 Mg Tablet.dr, 325 MG PO DAILY, (Reported) Entered as Reported by: RUBEN ANAYA on 12/14/171033 Last Action: Reviewed Fluticasone Propionate (Flonase Allergy Relief) 9.9 Ml [place].susp, 1 SPRAY NS D HASMUKH, (Reported) Entered as Reported by: RUBEN ANAYA on 12/14/171033 Last Action: Reviewed Furosemide (Furosemide) 40 Mg Tablet, 40 MG PO DAILY, (Reported) Entered as Reported by: FLO LUCAS on 02/19/22846 Last Action: Reviewed Levothyroxine Sodium (Levothyroxine) 50 Mcg Capsule, 50 MCG PO DAILY, (Reported) Entered as Reported by: FLO LUCAS on 02/19/22846 Last Action: Reviewed Levothyroxine Sodium (Levothyroxine) 200 Mcg Capsule, 200 MCG PO DAILY, (Reported) Entered as Reported by: FLO LUCAS on 02/19/22846 Last Action: Reviewed Loratadine (Alavert) 10 Mg Tab.rapdis, 10 MG PO DAILY, (Reported) Entered as Reported by: FLO LUCAS on 02/19/22846 Last Action: Reviewed Potassium Chloride (Klor-Con M20) 20 Meq Tab.er.prt, 20 MEQ PO DAILY, (Reported) Entered as Reported by: FLO LUCAS on 02/19/22 0847 Last Action: Reviewed Propranolol HCl (Propranolol HCl) 40 Mg Tablet, 40 MG PO TID, (Reported) Entered as Reported by: RUBEN ANAYA on 12/14/17 103 Last Action: Reviewed Sertraline HCl (Sertraline HCl) 100 Mg Tablet, 50 MG PO DAILY, (Reported) Entered as Reported by: RUBEN ANAYA on 12/14/17 103 Last Action: Reviewed Discontinued Medications Albuterol Sulfate (Proventil Hfa) 6.7 Gm Hfa.aer.ad, 2 PUFF IH Q6H PRN for SHORTNESS OF BREATH, (Reported) Discontinued Reason: No Longer Taking Entered as Reported by: RUBEN ANAYA on 12/14/171033 Last Action: Discontinued Cholecalciferol (Vitamin D3) (Vitamin D3) 1,000 Unit Capsule, 1,000 UNIT PO DAILY, (Reported) Discontinued Reason: No Longer Taking Entered as Reported by: RUBEN ANAYA on 12/14/17 103 Last Action: Discontinued Docusate Sodium (Colace) 100 Mg Capsule, 100 MG PO DAILY Discontinued Reason: No Longer Taking Prescribed by: LAINE DENT on 03/19/18 1441 Last Action: Discontinued Hydrocodone Bit/Acetaminophen (Lortab 5 Mg Tablet) 1 Tab Tab, 1 TAB PO Q4H PRN Discontinued Reason: No Longer Taking Prescribed by: LAINE DENT on 03/19/18 1441 Last Action: Discontinued Levothyroxine Sodium (Levothyroxine Sodium) 175 Mcg Tablet, 175 MCG PO DAILY, (Reported) Discontinued Reason: Duplicate Order Entered as Reported by: RUBEN ANAYA on 12/14/17 103 Last Action: Discontinued Ondansetron (Zofran Odt) 4 Mg Tab.rapdis, 4 MG SL Q4H PRN for NAUSEA/VOMITING- 1ST LINE Discontinued Reason: No Longer Taking Prescribed by: IFRAH GAUTAM on 03/20/18 1911 Last Action: Discontinued Exam Vital Signs Vital Signs Date Time Temp Pulse Resp B/P (MAP) Pulse Ox O2 Delivery O2 Flow Rate FiO2 02/19/22 08:28 36.0 73 179/110 (133) 98 Room Air Physical Exam General: Alert. No acute distress. Well nourished and appears stated age. She is morbidly obese. Eye: Extraocular movements are intact. Conjunctivae are clear. There are no xanthelasma. HENT: Normocephalic. Atraumatic. Carotid pulsations 2/2 without bruits. Neck: Jugular venous pressure does not appear elevated. No thyromegaly appreciated. Respiratory: Lungs are clear to auscultation but decreased at the bases bilaterally. Respirations are non-labored. Breath sounds are equal. Symmetrical chest wall expansion. Cardiovascular: Normal rate. Irregular rhythm. Distant S1/S2. No murmur. No gallop. Point of maximal impulse is not appear displaced. Good pulses equal in all extremities. 2+ bilateral pretibial edema with venous stasis changes. Gastrointestinal: Soft. Normal bowel sounds. Skin: Skin turgor is normal. There is no pallor. Musculoskeletal: No kyphosis or scoliosis appreciated. Neurologic: Alert and oriented to person, place, time. Cranial nerves 3-12 appear grossly intact. The patient has good motor tone strength in the upper and lower extremities bilaterally. Psychiatric: Cooperative. Appropriate mood & affect. Labs Laboratory Tests Test 02/19/22 08:38 Range/Units Sodium Level 141 135-145 MMOL/L Potassium Level 3.9 3.6-5.0 MMOL/L Chloride Level 102 98-107 MMOL/L Carbon Dioxide Level 26 21-32 MMOL/L Anion Gap 13 5-14 MMOL/L Blood Urea Nitrogen 16 7-18 MG/DL Creatinine 0.92 0.60-1.30 MG/DL Estimat Glomerular Filtration Rate 68 BUN/Creatinine Ratio 17 Glucose Level 89 70-105 MG/DL Calcium Level 9.4 8.5-10.1 MG/DL Radiology ELECTROCARDIOGRAM (01/09/2022): Atrial fibrillation with a ventricular rate of 67 bpm with late transition. BILATERAL LOWER EXTREMITY VENOUS DOPPLER (12/17/2021): 1. Right: No evidence of DVT or reflux in the deep venous system. No venous valvular insufficiency of the greater saphenous, anterior accessory saphenous, or small saphenous systems. 2. Left: No evidence of DVT or reflux in the deep venous system. No venous valvular insufficiency of the greater saphenous, anterior accessory saphenous, or small saphenous systems. REGADENOSON NUCLEAR STRESS TEST (12/11/2021): 1. Normal heart rate and blood pressure response to regadenoson with resting h ypertension. 2. There was no chest discomfort or electrocardiogram changes during the test. 3. The patient was in atrial fibrillation for the duration of the test. 4. There was normal myocardial perfusion in all segments without evidence of infarction or ischemia. 5. There was normal wall motion in all segments with a calculated ejection fraction of 72%. 6. There was an incidental finding of noncardiac uptake of radioisotope in the upper outer quadrant of the right breast. Unclear whether or not this was a spill on the exterior surface of the right breast or uptake within the right breast. Clinical correlation is recommended. ECHOCARDIOGRAM (12/10/2021): 1. This is a technically difficult study due to poor image quality secondary to patient's body habitus. 2. Normal left ventricular chamber size, wall thickness and systolic function with an estimated ejection fraction of 55-60%. Regional wall motion abnormalities cannot be excluded due to poor endocardial definition. 3. The left ventricular diastolic function is indeterminate. 4. The right atrium is mildly dilated with an area of 23 cm. 5. The inferior vena cava is dilated with normal respiratory variation which is consistent with mildly elevated right atrial pressure (8 mmHg). 6. The estimated pulmonary artery systolic pressure is 41 mmHg assuming a right atrial pressure of 5 mmHg. 7. Compared to the previous report from 01/12/2017, there are no significant changes. ELECTROCARDIOGRAM (12/09/2021): Atrial fibrillation with a ventricular rate of 83 bpm with nonspecific anterolateral ST elevation. LABS (11/21/2021): Glucose 88. BUN 17. Creatinine 0.96. GFR 61. Sodium 138. Potassium 4.6. Liver function tests normal. Hemoglobin 11.6. Platelets 203,000. TSH 6.86. LABS (08/07/2021): Hemoglobin 12.3. Platelets 151,000. TSH 3.27. LABS (05/28/2021): Hemoglobin 12.3. Platelets 139,000. Glucose 83. BUN 18. Creatinine 0.85. GFR 71. Sodium 138. Potassium 3.7. Liver function tests normal. Total cholesterol 185. HDL 72. Triglycerides 70. LDL 97. CARDIAC CATHETERIZATION (08/08/2012): 1. Normal coronary artery by angiographic method. 2. Normal LV systolic function. 3. Normal cardiac hemodynamics. ECG Impression ECG Comment Atrial fibrillation with late transition. Diagnosis/Problems Diagnosis/Problems (1) Persistent atrial fibrillation Assessment & Plan: She has persistent atrial fibrillation of unknown duration. She has been on oral anticoagulation for well over 30 days. She is now here for direct-current cardioversion. The benefits and risks of the procedure have been explained to the patient and she has consented to the procedure. SUJATA CLARK JR, MD Feb 19, 2022 08:22
[2022-02-19] MEDS ORDERED: proPOfol 200 MG/20 ML (DIPRIVAN) VIAL IV ONE (08:27)
[2022-02-19 08:28] VITALS: BP 179/110
[2022-02-19] MEDS ORDERED: ALBU6.7H8 INH (08:47)
[2022-02-19] MEDS ORDERED: FURO40TA4 PO (08:47)
[2022-02-19] MEDS ORDERED: LEVO50CA4 PO (08:47)
[2022-02-19] MEDS ORDERED: LORA10TA44 PO (08:47)
[2022-02-19] MEDS ORDERED: APIX5TAB PO (08:47)
[2022-02-19] MEDS ORDERED: LEVO200C2 PO (08:47)
[2022-02-19] MEDS ORDERED: POTA-169 PO (08:47)
[2022-02-19 09:03] VITALS: BP 124/78
[2022-02-19 09:06] LABS: CALCIUM 9.4 MG/DL (8.5-10.1); CREATININE SERUM 0.92 MG/DL (0.60-1.30); POTASSIUM 3.9 MMOL/L (3.6-5.0)
[2022-02-19 09:13] VITALS: BP 113/82
--- NOTE | 2022-02-19 09:13 | Cardiac Procedure Note-KU ---
Cardiology Procedures Date of Procedure 02/19/22 DIRECT-CURRENT CARDIOVERSION INDICATION: Persistent atrial fibrillation. PROCEDURE: After informed consent and in the fasting state, deep sedation was provided by the anesthesia department. I subsequently performed direct-current cardioversion with 1 synchronized, biphasic shock at 150 J with successful conversion of atrial fibrillation to sinus rhythm. IMPRESSION: 1. Status post successful direct-current cardioversion with 1 synchronized, biphasic shock at 150 J with successful conversion of atrial fibrillation to sinus rhythm. Certain portions of this document may have been dictated utilizing voice recognition technology. Inherent to this technology, typographical and grammatical errors may exist. As much as I am diligent to identify and correct these mistakes, some errors may remain in the document. SUJATA FERNANDEZ JR, MD Feb 19, 2022 09:13
--- NOTE | 2022-02-19 09:13 | Anesthesia-General Post-Op ---
MAC Patient Condition Mental Status/LOC: Same as Preop Cardiovascular: Satisfactory Nausea/Vomiting: Absent Respiratory: Satisfactory Pain: Controlled Complications: Absent Post Op Complications Complications None Follow Up Care/Instructions Patient Instructions None needed. Anesthesiology Discharge Order Discharge Order Patient is doing well, no complaints, stable vital signs, no apparent adverse anesthesia problems. No complications reported per nursing. CRUZ CORMIER CRNA Feb 19, 2022 09:13
[2022-02-19 09:20] VITALS: BP 133/88
[2022-02-19 09:35] VITALS: BP 143/85
== END 2022-02-19 10:11 | disposition home or self-care (01) ==
LOC: CATH 07:40
PROVIDERS: ATTEND Internal Medicine Cardiovascular Disease
DX: I48.19 Other persistent atrial fibrillation (principal); E66.01 Morbid (severe) obesity due to excess calories; K21.9 Gastro-esophageal reflux disease without esophagitis; Z68.41 Body mass index [BMI] 40.0-44.9, adult; Z79.01 Long term (current) use of anticoagulants; Z88.0 Allergy status to penicillin; Z88.8 Allergy status to other drugs, medicaments and biological substances
CPT/HCPCS: 36415; 80048; 92960; 93005

== ENCOUNTER 2022-03-19 10:00 | Day surgery (SDC) | payer MEDICARE ==
[~2022-03-19] VITALS: Ht 172.7 cm; Wt 123.3 kg
[2022-03-19 09:18] VITALS: BP 143/72
[2022-03-19 09:38] LABS: CALCIUM 9.3 MG/DL (8.5-10.1); CREATININE SERUM 1.14 MG/DL (0.60-1.30); POTASSIUM 3.8 MMOL/L (3.6-5.0)
[~2022-03-19 10:00] MED LIST changes: +ALBU6.7H8 INH; +APIX5TAB PO; +CATHETER FLUSH 10 ML SYR IV PRN; +CHOL-34 PO; +FLEC100T PO; +FURO40TA4 PO; +LEVO200C2 PO; +LEVO25TA5 PO; +LEVO50CA4 PO; +LORA10TA44 PO; +NS IV 1000 ML 1,000 ML IV ONE; +NS IV 1000 ML 1,000 ML ONE; +POTA-169 PO; +proPOfol 200 MG/20 ML (DIPRIVAN) VIAL IV ONE
[2022-03-19 10:22] VITALS: BP 146/83
[2022-03-19 10:28] VITALS: BP 117/106
[2022-03-19 10:45] VITALS: BP 140/66
[2022-03-19 11:00] VITALS: BP 131/76
--- NOTE | 2022-03-19 11:03 | Progress Note ---
Standard Progress Note Progress Notes/Assess & Plan Date Seen by a Provider: Mar 19, 2022 Time Seen by a Provider: 11:02 Progress/Assessment & Plan The patient presented for an outpatient cardioversion. She was in atrial fibrillation at the time of arrival. When anesthesia administered the moderate sedation, the patient promptly converted to sinus rhythm with first-degree AV block. As such, no cardioversion was performed. SUJATA FERNANDEZ JR, MD Mar 19, 2022 11:03
--- NOTE | 2022-03-19 11:26 | Anesthesia-General Post-Op ---
MAC Patient Condition Mental Status/LOC: Same as Preop Cardiovascular: Satisfactory Nausea/Vomiting: Absent Respiratory: Satisfactory Pain: Controlled Complications: Absent Post Op Complications Complications None Follow Up Care/Instructions Patient Instructions None needed. Anesthesiology Discharge Order Discharge Order Patient is doing well, no complaints, stable vital signs, no apparent adverse anesthesia problems. No complications reported per nursing. CRUZ CORMIER CRNA Mar 19, 2022 11:26
== END 2022-03-19 11:08 | disposition home or self-care (01) ==
LOC: CATH 10:00
PROVIDERS: ATTEND Internal Medicine Cardiovascular Disease
DX: I48.19 Other persistent atrial fibrillation (principal); I27.20 Pulmonary hypertension, unspecified; I10 Essential (primary) hypertension; J45.909 Unspecified asthma, uncomplicated; R60.0 Localized edema; E03.9 Hypothyroidism, unspecified; E66.9 Obesity, unspecified; Z68.41 Body mass index [BMI] 40.0-44.9, adult
CPT/HCPCS: 36415; 80048; 92960; 93005

== ENCOUNTER → 2022-03-30 | Outpatient (CLI) | payer MEDICARE ==
[~2022-03-30] MED LIST changes: -CATHETER FLUSH 10 ML SYR IV PRN; -NS IV 1000 ML 1,000 ML IV ONE; -NS IV 1000 ML 1,000 ML ONE; -proPOfol 200 MG/20 ML (DIPRIVAN) VIAL IV ONE
== END ==
LOC: CARD 09:30
PROVIDERS: ATTEND Internal Medicine Cardiovascular Disease
DX: I48.0 Paroxysmal atrial fibrillation (principal)

== ENCOUNTER → 2022-06-09 | Outpatient (CLI) | payer MEDICARE ==
[~2022-06-09] MED LIST changes: +ALBU6.7H13 INH; -ALBU6.7H8 INH
--- NOTE | 2022-06-09 15:30 | Diagnostic Imaging Report ---
INDICATION: Z78.0, postmenopausal state. COMPARISON: None available. FINDINGS: AP Spine L1-L4: [BMD (g/cm2): 1.084] [T-Score: -1.0] [Z-Score: -0.5] [BMD Previous: NA] [BMD % Change: NA] LT Hip Neck: [BMD (g/cm2): 0.987] [T-Score: -0.4] [Z-Score: 0.5] LT Hip Total: [BMD (g/cm2):1.047] [T-Score:0.3] [Z-Score: 0.9] [BMD Previous: NA] [BMD % Change: NA] RT Hip Neck: [BMD (g/cm2):1.015] [T-Score:-0.2] [Z-Score:0.7] RT Hip Total: [BMD (g/cm2):1.006] [T-score:0.0] [Z-Score:0.6] [BMD Previous:NA] [BMD % Change:NA] *Indicates significant change from prior examination based on 95% confidence level. World Health Organization criteria for BMD interpretation classify patients as Normal (T-score at or above -1.0), Osteopenic (T-score between -1.0 and -2.5) or Osteoporotic (T-score at or below -2.5). LIMITATIONS AND MODIFICATION: None. IMPRESSION: 1. Normal bone mineral density. 2. Baseline examination. 3. See below National Osteoporosis Foundation guidelines on when to potentially initiate pharmacologic therapy. Based on the National Osteoporosis Foundation Guidelines, pharmacologic treatment should be initiated in any of the following, unless clinical conditions suggest otherwise: * Any patient with prior fragility fracture of the hip or vertebrae. A spine fracture indicates 5X risk for subsequent spine fracture and 2X risk for subsequent hip fracture. * Osteoporosis (T-score <-2.5). * Postmenopausal women and men age 50 and older with low bone mass/osteopenia (T-score between -1.0 and -2.5) by DXA and 10-year major osteoporotic fracture greater than 20% or a 10-year probability of hip fracture greater than 3%. These fracture risks are supplied above in the FRAX score, if applicable. * Clinician judgement and/or patient preferences may indicate treatment for people with 10-year fracture probabilities above or below these levels. Dictated by: Dictated on workstation # [id number]
== END ==
LOC: RAD 10:38
PROVIDERS: ATTEND Family Medicine
DX: Z78.0 Asymptomatic menopausal state (principal)
CPT/HCPCS: 77080